=== PATIENT | male | born 1955 | race Two or more races ===

== ENCOUNTER → 2018-01-06 | Outpatient (CLI) | payer MEDICARE ==
[2018-01-06 14:22] LABS: Blood Urea Nitrogen 18 mg/dL (9-20)
== END | disposition home or self-care (01) ==
LOC: LABWHC1 13:47
PROVIDERS: ATTEND Psychiatry & Neurology Neurology
DX: R51 Headache (principal); R90.82 White matter disease, unspecified; H46.9 Unspecified optic neuritis; Z88.0 Allergy status to penicillin; Z88.5 Allergy status to narcotic agent
CPT/HCPCS: 36415; 82565; 84520

== ENCOUNTER → 2018-01-20 | Outpatient (CLI) | payer MEDICARE ==
--- NOTE | 2018-01-20 22:48 | MR ---
EXAMINATION TYPE: MR brain wo/w con DATE OF EXAM: 01/20/2018 COMPARISON: Prior MRI brain September 07, 2015 HISTORY: BAKER, White matter changes, optic neuritis TECHNIQUE: Multiplanar, multisequence images of the brain and brainstem is performed without and with IV contras t, utilizing 7.5 mL intravenous Gadavist gadolinium contrast is administered intravenously. Demyelin ating disease protocol with additional Sagittal Flair sequence is not performed. FINDINGS: T2 Lesions Present : Yes Approximate Number of Lesions: 50-70 Locations Identified : Scattered superficial, deep, and periventricular Size of Reference Lesion(s): 1. 0.8 x 0.8 cm on axial image 18 left frontal white matter felt stable. Enhancing Lesion(s) Present: No T1 Hypointense Lesion(s) Present: Yes Change from Prior: Increased Diffusion weighted images demonstrate no evidence of a recent infarct or other diffusion abnormality. There is no worrisome extra-axial fluid collection. The ventricular system and cisternal spaces ar e normal in size and appearance. The brain volume is age appropriate. Midline structures demonstrate normal morphology. The craniocervical junction appears within normal limits. Post contrast images demonstrate no abnormal enhancement. The dural venous sinuses appear pa tent. The visualized sinuses are clear and the globes are intact. Patchy increased fluid signal left mastoid air cells remains present likely product of retained secretions. IMPRESSION: Moderate to severe nonspecific white matter changes redemonstrated. Some increase in numb er of lesions are identified. No enhancing lesions are seen.
== END | disposition home or self-care (01) ==
LOC: RADMRIMAIN 20:37
PROVIDERS: ATTEND Physician Assistant
DX: R90.89 Other abnormal findings on diagnostic imaging of central nervous system (principal); G93.9 Disorder of brain, unspecified
CPT/HCPCS: 70553; A9581

== ENCOUNTER → 2018-05-25 | Outpatient (CLI) | payer MEDICARE, OTHER | LOC: LABWHC1 12:30 | PROVIDERS: ATTEND Nurse Practitioner Acute Care | DX: Z51.81 Encounter for therapeutic drug level monitoring (principal); E11.9 Type 2 diabetes mellitus without complications | CPT/HCPCS: 36415; 82565; 84520 ==

== ENCOUNTER 2021-07-14 20:19 | Inpatient (IN) | payer MEDICARE ==
[2021-07-14 20:50] LABS: Basophils % (A) 0 %; Eosinophils % (A) 0 %; HGB 14.8 gm/dL (13.0-17.5); Lymphocytes # (A) 1.4 k/uL (1.0-4.8); Lymphocytes % (A) 14 %; MCHC 32.9 g/dL (31.0-37.0); MCV 106.4 fL (80.0-100.0); Macrocytosis Moderate; Mean Platelet Volume 8.1; Monocytes # (A) 0.3 k/uL (0-1.0); Monocytes % (A) 4 %; Neutrophils # (A) 7.6 k/uL (1.3-7.7); Neutrophils % (A) 80 %; Platelet Count 270 k/uL (150-450); RBC 4.23 m/uL (4.30-5.90); RDW 13.1 % (11.5-15.5); WBC 9.5 k/uL (3.8-10.6)
[2021-07-14 20:57] LABS: Albumin 4.8 g/dL (3.5-5.0); Magnesium 2.3 mg/dL (1.6-2.3); Potassium 5.7 mmol/L (3.5-5.1); Total Protein 7.5 g/dL (6.3-8.2)
[2021-07-14 21:09] LABS: Partial Thromboplastin Time 22.2 sec (22.0-30.0); Prothrombin Time 11.1 sec (9.0-12.0)
[2021-07-14] MEDS ORDERED: SODIUM CHLORIDE 0.9% 1,000 ML IV STA (21:10)
--- NOTE | 2021-07-14 21:53 | XR ---
EXAMINATION TYPE: XR chest 2V DATE OF EXAM: 07/14/2021 8:58 PM COMPARISON:None TECHNIQUE: XR chest 2V Frontal and lateral views of the chest. CLINICAL INDICATION:Male, 65 years old with history of Chest Pain; FINDINGS: Lungs/Pleura: There is no evidence of pleural effusion, focal consolidation, or pneumothorax. Pulmonary vascularity: Unremarkable. Heart/mediastinum: Cardiomediastinal silhouette is unremarkable. Two lead cardiac conduction device o verlying the left hemithorax with lead tips projecting over the right ventricle and right atrium. Musculoskeletal: No acute osseous pathology. IMPRESSION: No acute cardiopulmonary disease/process.
[2021-07-14] MEDS ORDERED: INSULIN REGULAR 100 UNIT/ML VIAL (IV) IV ONE (23:22)
[2021-07-15 00:19] LABS: Glucose,Whole Blood 470 mg/dL (75-99)
--- NOTE | 2021-07-15 00:35 | ED ---
Chest Pain HPI - General Chief Complaint: Chest Pain Stated Complaint: Chest Pain Time Seen by Provider: 07/14/21 20:20 Source: patient, EMS, RN notes reviewed Mode of arrival: EMS Limitations: no limitations - History of Present Illness Initial Comments: 65-year-old male history diabetes history of pacemaker who states he's not had his diabetic medication for at least 6-8 weeks who is brought in by EMS today because of chest pain diaphoresis he was noted by paramedics have what appear to be atrial fibrillation with a rapid ventricular response with verbal other rhythms noted. He had chest pain. No fevers chills or sweats on arrival the patient stated he had no chest pain he does not feel well however. No cough no phlegm production no other symptoms reported MD Complaint: chest pain, other - Related Data Home Medications Medication Instructions Recorded Confirmed Atorvastatin [Lipitor] 40 mg PO DAILY 07/14/21 07/14/21 Diltiazem Cd [Cardizem CD] 180 mg PO DAILY 07/14/21 07/14/21 Docusate [Colace] 100 mg PO DAILY 07/14/21 07/14/21 Levothyroxine Sodium [Synthroid] 75 mcg PO DAILY 07/14/21 07/14/21 Losartan Potassium 100 mg PO HS 07/14/21 07/14/21 Nitroglycerin Sl Tabs [Nitrostat] 0.4 mg SUBLINGUAL Q5M PRN 07/14/21 07/14/21 QUEtiapine [SEROquel] 400 mg PO HS 07/14/21 07/14/21 Rivaroxaban [Xarelto] 20 mg PO DAILY 07/14/21 07/14/21 Venlafaxine HCl [Effexor] 100 mg PO DAILY 07/14/21 07/14/21 buPROPion HCL [Wellbutrin XL] 300 mg PO DAILY 07/14/21 07/14/21 buPROPion XL [Wellbutrin XL] 150 mg PO DAILY 07/14/21 07/14/21 carBAMazepine [TEGretol] 400 mg PO Q12H 07/14/21 07/14/21 clonazePAM [KlonoPIN] 1 mg PO TID 07/14/21 07/14/21 metFORMIN HCL [Glucophage] 1,000 mg PO BID 07/14/21 07/14/21 Allergies Allergy/AdvReac Type Severity Reaction Status Date / Time Penicillins Allergy Unknown Verified 07/14/21 22:18 Childhood Review of Systems ROS Statement: Those systems with pertinent positive or pertinent negative responses have been documented in the HPI. ROS Other: All systems not noted in ROS Statement are negative. EKG Findings - EKG Results: EKG: interpreted by KIRAN Past Medical History Past Medical History: Atrial Fibrillation, COPD, Diabetes Mellitus, Hyperlipidemia, Hypertension, Myocardial Infarction ([place]), Thyroid Disorder History of Any Multi-Drug Resistant Organisms: None Reported Past Psychological History: Anxiety, Bipolar, Depression Smoking Status: Vaper Past Alcohol Use History: None Reported Past Drug Use History: None Reported General Exam - General Exam Comments Initial Comments: This is a well-developed well-nourished awake alert oriented times 3 male Limitations: no limitations General appearance: alert, anxious Head exam: Present: atraumatic, normocephalic, normal inspection Eye exam: Present: normal appearance, PERRL, EOMI. Absent: scleral icterus, conjunctival injection, periorbital swelling ENT exam: Present: mucous membranes dry Neck exam: Present: normal inspection, full ROM, other (No stridor JVD or bruits). Absent: tenderness, meningismus, lymphadenopathy Respiratory exam: Present: normal lung sounds bilaterally, other (Pacemaker generator palpable left upper chest wall no evidence of erythema or tenderness palpation). Absent: respiratory distress, wheezes, rales, rhonchi, stridor Cardiovascular Exam: Present: regular rate, normal rhythm, normal heart sounds. Absent: systolic murmur, diastolic murmur, rubs, gallop, clicks GI/Abdominal exam: Present: soft, normal bowel sounds. Absent: distended, tenderness, guarding, rebound, rigid Extremities exam: Present: normal inspection, full ROM, normal capillary refill. Absent: tenderness, pedal edema, joint swelling, calf tenderness Back exam: Present: normal inspection Neurological exam: Present: alert, oriented X3, CN II-XII intact Psychiatric exam: Present: normal affect, normal mood Skin exam: Present: warm, dry, intact, normal color. Absent: rash Course Vital Signs 07/14/21 20:30 Temperature 97.8 F Pulse Rate 60 Respiratory 20 Rate Blood Pressure 166/108 O2 Sat by Pulse 100 Oximetry - Reevaluation(s) Reevaluation #1: 07/15/21 00:35 Patient evaluated on multiple occasions he is feeling improved was found have elevated blood sugar. He was sitting of hyponatremia. Evidence of clinical dehydration. Chest Pain MDM - MDM Imaging reviewed no acute findings. Patient does have evidence of DKA he has acetone positive also elevated troponin elevated creatinine and BUN also sodium 123. Patient will be admitted I did discuss case with him and his family. Acid discuss case with Dr. Mayer who did see the patient in emergency department discuss case with Dr. Alicea for ICU placement. Critical Care Time Critical Care Time: Yes Total Critical Care Time: 39 Critical Care Time: Critical care time including initial presentation with history physical labs x- rays multiple reevaluation patient response to therapy discuss with the patient family regarding findings discussed with the main physician discussion with the sweater operator. Initial orders documentation the above also initial conversation with paramedics upon arrival. Disposition Clinical Impression: Chest pain, Elevated troponin, Diabetic ketoacidosis, Hyponatremia syndrome, Dehydration Disposition: ADMITTED IP TO THIS HOSP Condition: Serious Referrals: Brenda Hewitt, AIDEN [Primary Care Provider] - 1-2 days
[2021-07-15] MEDS ORDERED: NITROGLYCERIN SL TABS 0.4 MG TAB SUBLINGUAL PRN (00:38)
[2021-07-15] MEDS ORDERED: HEPARIN SODIUM 1,000 UN/ML (10ML VL) IV ONE (00:38)
[2021-07-15] MEDS ORDERED: Magnesium Replacement Protocol 1 EACH MISC MISCELLANE PRN (00:43)
[2021-07-15] MEDS ORDERED: INSULIN REGULAR BOLUS (FROM DRIP BAG) IV ONE (00:43)
[2021-07-15] MEDS ORDERED: Potassium Replacement Protocol 1 EACH MISC MISCELLANE PRN (00:43)
[2021-07-15] MEDS ORDERED: HEPARIN SOD,PORK IN 0.45% NACL 25,000 UNIT in 0.45% NACL 1 250ML.BAG IV SCH (00:45)
[2021-07-15] MEDS ORDERED: INSULIN REGULAR 100 UNIT in SODIUM CHLORIDE 0.9% 100 ML IV SCH (00:45)
[2021-07-15 01:05] LABS: Calcium 8.8 mg/dL (8.4-10.2); Magnesium 2.3 mg/dL (1.6-2.3); Potassium 4.6 mmol/L (3.5-5.1)
[2021-07-15] MEDS: carBAMazepine 200 MG TAB PO SCH ×2 (01:32→12:04)
[2021-07-15 01:36] LABS: Glucose,Whole Blood 477 mg/dL (75-99)
[2021-07-15] MEDS: SODIUM CHLORIDE 0.9% 1,000 ML IV SCH ×3 (01:38→09:00)
--- NOTE | 2021-07-15 01:55 | P.HPIM ---
History of Present Illness H&P Date: 07/15/21 The patient is a 65-year-old male with a PMH of A. fib on Xarelto, status post pacemaker, hypertension, type II DM, hyperlipidemia who presented to the emergency room with complaints of chest pain, urinary frequency, and increased thirst. Patient reports that over the past 2-3 days, he has noticed persistent frequent urination and significantly increased thirst. He reports also feeling unwell during this time. He reports not being able to take his diabetes medications over the past 6-8 weeks due to inability to obtain an appointment with his physicians. He reports that earlier today in the evening, he suddenly developed a pressure-like substernal 10 out of 10 discomfort with radiation th roughout the chest, with no alleviating or exacerbating features. He reports associated shortness of breath and some palpitations. He immediately activated his life alert bracelet, and upon arrival, EMS noted that the patient was in A. fib with RVR. The patient reported that his pain eventually resolved after 30- 45 minutes. He denied fever, chills, cough, nausea, vomiting, abdominal pain, diarrhea. EKG the emergency room revealed a paced rhythm at 59 bpm with a right bundle branch block. Chest x-ray was unremarkable. Laboratory evaluation revealed a glucose of 794, and gap 24, sodium 123, potassium 5.7, chloride 88, CO2 11, BUN 48, creatinine 1.7, acetone positive, and troponin 0.089 and a proBNP 1590. Vital signs were reviewed. The case was discussed by the ED physician with the cube machine tender. Review of systems: Pertinent positives and negatives as discussed in HPI, a complete review of systems was performed and all other systems are negative. Physical examination: General: non toxic, no distress, appears older than stated age, overweight Derm: no unusual rashes/lesions no unusual ecchymoses, warm, dry Head: atraumatic, normocephalic, symmetric Eyes: EOMI, no lid lag, anicteric sclera, pupils equal round reactive to light ENT: Nose and ears atraumatic, no thrush, no pharyngeal erythema Neck: No thyromegaly, no cervical lymphadenopathy, trachea midline, supple Mouth: no lip lesion, mucus membranes moist Cardiovascular: S1S2 reg, no murmur, positive posterior tibial pulse bilateral, no edema, capillary refill less than 2 seconds Lungs: CTA bilateral, no rhonchi, no rales , no accessory muscle use Abdominal: soft, nontender to palpation, no guarding, no appreciable organomegaly, normal bowel sounds Ext: no gross muscle atrophy, muscle strength 5 out of 5 in all 4 extremities grossly, no contractures, Neuro: CN II-XI grossly intact, light touch intact all 4 extremities, finger to nose within normal limits, Psych: Alert, oriented, appropriate affect Assessment/plan DKA in type II diabetic -Continue with insulin infusion -Monitor electrolytes q2-4h -IV fluids -Hold oral hypoglycemics -Cardiac monitoring Acute kidney injury, likely secondary to dehydration in setting of DKA -Continue with IV fluids -Monitor BMP NSTEMI -Patient taking Xarelto at home -Cardiac monitoring -C/w Aspirin -Cardiology consult Chronic conditions: Hypertension, hyperlipidemia, A. fib -Continue with home meds DVT prophylaxis -Xarelto The patient is admitted with an anticipated greater than 2 midnight stay for evaluation of DKA CODE STATUS: Full Code Discussed with: Patient Anticipated discharge date: 2-[address]: Home Past Medical History Past Medical History: Atrial Fibrillation, COPD, Diabetes Mellitus, Hyperlipidemia, Hypertension, Myocardial Infarction ([place]), Thyroid Disorder History of Any Multi-Drug Resistant Organisms: None Reported Past Psychological History: Anxiety, Bipolar, Depression Smoking Status: Vaper Past Alcohol Use History: None Reported Past Drug Use History: None Reported Medications and Allergies Home Medications Medication Instructions Recorded Confirmed Type Atorvastatin [Lipitor] 40 mg PO DAILY 07/14/21 07/14/21 History Diltiazem Cd [Cardizem CD] 180 mg PO DAILY 07/14/21 07/14/21 History Docusate [Colace] 100 mg PO DAILY 07/14/21 07/14/21 History Levothyroxine Sodium [Synthroid] 75 mcg PO DAILY 07/14/21 07/14/21 History Losartan Potassium 100 mg PO HS 07/14/21 07/14/21 History Nitroglycerin Sl Tabs [Nitrostat] 0.4 mg SUBLINGUAL Q5M PRN 07/14/21 07/14/21 History QUEtiapine [SEROquel] 400 mg PO HS 07/14/21 07/14/21 History Rivaroxaban [Xarelto] 20 mg PO DAILY 07/14/21 07/14/21 History Venlafaxine HCl [Effexor] 100 mg PO DAILY 07/14/21 07/14/21 History buPROPion HCL [Wellbutrin XL] 300 mg PO DAILY 07/14/21 07/14/21 History buPROPion XL [Wellbutrin XL] 150 mg PO DAILY 07/14/21 07/14/21 History carBAMazepine [TEGretol] 400 mg PO Q12H 07/14/21 07/14/21 History clonazePAM [KlonoPIN] 1 mg PO TID 07/14/21 07/14/21 History metFORMIN HCL [Glucophage] 1,000 mg PO BID 07/14/21 07/14/21 History Allergies Allergy/AdvReac Type Severity Reaction Status Date / Time Penicillins Allergy Unknown Verified 07/14/21 22:18 Childhood Physical Exam Vitals: Vital Signs Temp Pulse Resp BP Pulse Ox 07/14/21 23:00 60 16 157/99 100 07/14/21 22:00 60 16 151/110 100 07/14/21 21:00 60 16 156/104 100 07/14/21 20:30 97.8 F 60 20 166/108 100 Intake and Output 07/14/21 07/14/21 07/15/21 14:59 22:59 06:59 Other: Weight 83.915 kg Results CBC & Chem 7: 07/14/21 20:34 07/15/21 00:18 Labs: Abnormal Lab Results - Last 24 Hours (Table) 07/14/21 07/14/21 07/14/21 Range/Units 20:34 20:34 20:34 RBC 4.23 L (4.30-5.90) m/uL MCV 106.4 H (80.0-100.0) fL Sodium 123 L (137-145) mmol/L Potassium 5.7 H (3.5-5.1) mmol/L Chloride 88 L (98-107) mmol/L Carbon Dioxide 11 L (22-30) mmol/L BUN 48 H (9-20) mg/dL Creatinine 1.77 H (0.66-1.25) mg/dL Glucose 794 H* (74-99) mg/dL POC Glucose (mg/dL) (75-99) mg/dL AST 81 H (17-59) U/L ALT 155 H (4-49) U/L Alkaline Phosphatase 162 H (38-126) U/L Troponin I 0.089 H* (0.000-0.034) ng/mL 07/15/21 07/15/21 Range/Units 00:16 00:18 RBC (4.30-5.90) m/uL MCV (80.0-100.0) fL Sodium 129 L (137-145) mmol/L Potassium (3.5-5.1) mmol/L Chloride 93 L (98-107) mmol/L Carbon Dioxide 19 L (22-30) mmol/L BUN 49 H (9-20) mg/dL Creatinine 1.58 H (0.66-1.25) mg/dL Glucose 538 H* (74-99) mg/dL POC Glucose (mg/dL) 470 H (75-99) mg/dL AST (17-59) U/L ALT (4-49) U/L Alkaline Phosphatase (38-126) U/L Troponin I (0.000-0.034) ng/mL
[2021-07-15 02:40] LABS: Glucose,Whole Blood 380 mg/dL (75-99)
[2021-07-15 02:42] LABS: VBG PH 7.27 (7.31-7.41)
[2021-07-15 03:50] LABS: Glucose,Whole Blood 283 mg/dL (75-99)
[2021-07-15 04:04] LABS: Glucose,Whole Blood 292 mg/dL (75-99)
[2021-07-15] MEDS: D5-0.45% NACL WITH KCL 20MEQ/L 1,000 ML IV SCH ×3 (05:14→13:27)
[2021-07-15 05:15] LABS: Glucose,Whole Blood 224 mg/dL (75-99)
[2021-07-15 06:05] LABS: Glucose,Whole Blood 184 mg/dL (75-99)
[2021-07-15 06:07] LABS: Potassium 4.1 mmol/L (3.5-5.1)
[2021-07-15] MEDS: LEVOTHYROXINE 75 MCG TAB PO SCH (06:40)
[2021-07-15 07:20] LABS: Glucose,Whole Blood 153 mg/dL (75-99)
--- NOTE | 2021-07-15 08:07 | P.CNPUL ---
History of Present Illness Consult date: 07/15/21 Reason for consult: chest pain History of present illness: 65-year-old male patient presented to the emergency department yesterday with chest pain, dehydration and hyperglycemia. The patient was found to be in DKA. The patient is known to have diabetes mellitus in his been off metformin for the past 6 weeks. He is known to have COPD, H a fibrillation, and he has a permanent pacemaker in place along with hypertension and type 2 diabetes m ellitus and hyperlipidemia and hypothyroidism. His been having increased chest pain, urinary frequency, polyuria, polydipsia. He presented to the ED, initial workup showed hyperglycemia with a sugar of 794, the sedation I gap was 24, sodium was at 123, potassium was at 5.7, serum bicarb was 11, BUN was 48 with a creatinine of 1.7. Acetone was positive in the sputum. Troponin initially was 0.08 and came at 0.09 and is down to 0.07. His cardiac rhythm was paced. EKG showed a paced rhythm. Overnight, the patient was given IV fluids and received IV fluids and following that he was switched to D5 half-normal saline today to 150 mL an hour. He was also started on insulin drip and currently insulin drip is running at 9 units an hour. Blood sugars under better control for now. Most recent electrolytes are showing a sodium of 128, serum bicarb of 20, BUN of 47 with a creatinine of 1.4. Most recent blood sugar is down to 241. Normal coagulation profile. With that was at 9.4 with a hemoglobin of 14.8. Chest x- ray showed no acute abnormalities. He is currently free of any chest pain. Cardiology will be evaluating this patient. He is hemodynamically stable on no pressors. He is known to take Xarelto on outpatient basis for long-term anticoagulation. Furthermore, the patient is fully vaccinated for COVID 19. He states that he was infected with COVID 19 following his vaccination and is not exactly sure of the date of the reinfection. Patient has chronic back pain. The patient has a pain pump with morphine. The patient quit smoking recently approximately 2 months ago. Review of Systems Constitutional: Reports fatigue, Reports weakness Eyes: denies as per HPI, denies blurred vision, denies bulging eye, denies decreased vision, denies diplopia, denies discharge, denies dry eye, denies irritation, denies itching, denies pain, denies photophobia, denies loss of peripheral vision, denies loss of vision, denies tunnel vision/blind spots Ears: deny: decreased hearing, ear discharge, earache, tinnitus Ears, nose, mouth and throat: Reports as per HPI Breasts: absent: as per HPI, gynecomastia Cardiovascular: Reports chest pain, Reports dyspnea on exertion Respiratory: Reports as per HPI Gastrointestinal: Reports as per HPI Genitourinary: Reports as per HPI Musculoskeletal: Reports as per HPI Musculoskeletal: absent: ankle pain, ankle stiffness, ankle swelling, as per HPI , elbow pain, elbow stiffness, elbow swelling, foot pain, foot stiffness, foot swelling, hand pain, hand stiffness, hand swelling, hip pain, hip stiffness, hip swelling, knee pain, knee stiffness, knee swelling, shoulder pain, shoulder stiffness, shoulder swelling, wrist pain, wrist stiffness, wrist swelling Integumentary: Reports as per HPI Neurological: Reports as per HPI Psychiatric: Reports as per HPI Endocrine: Reports high blood sugars, Reports polydipsia, Reports polyuria Hematologic/Lymphatic: Reports as per HPI Allergic/Immunologic: Reports as per HPI Past Medical History Past Medical History: Atrial Fibrillation, Coronary Artery Disease (CAD), COPD, Diabetes Mellitus, Hyperlipidemia, Hypertension, Myocardial Infarction (PR), Thyroid Disorder Additional Past Medical History / Comment(s): PR 2019, hypothyroid Last Myocardial Infarction Date:: 2018 History of Any Multi-Drug Resistant Organisms: None Reported Past Surgical History: No Surgical Hx Reported Additional Past Surgical History / Comment(s): pacemaker insertion Past Anesthesia/Blood Transfusion Reactions: No Reported Reaction Past Psychological History: Anxiety, Bipolar, Depression Smoking Status: Former smoker, Vaper Past Alcohol Use History: None Reported Past Drug Use History: None Reported Medications and Allergies Home Medications Medication Instructions Recorded Confirmed Type Atorvastatin [Lipitor] 40 mg PO DAILY 07/14/21 07/14/21 History Diltiazem Cd [Cardizem CD] 180 mg PO DAILY 07/14/21 07/14/21 History Docusate [Colace] 100 mg PO DAILY 07/14/21 07/14/21 History Levothyroxine Sodium [Synthroid] 75 mcg PO DAILY 07/14/21 07/14/21 History Losartan Potassium 100 mg PO HS 07/14/21 07/14/21 History Nitroglycerin Sl Tabs [Nitrostat] 0.4 mg SUBLINGUAL Q5M PRN 07/14/21 07/14/21 History QUEtiapine [SEROquel] 400 mg PO HS 07/14/21 07/14/21 History Rivaroxaban [Xarelto] 20 mg PO DAILY 07/14/21 07/14/21 History Venlafaxine HCl [Effexor] 100 mg PO DAILY 07/14/21 07/14/21 History buPROPion HCL [Wellbutrin XL] 300 mg PO DAILY 07/14/21 07/14/21 History buPROPion XL [Wellbutrin XL] 150 mg PO DAILY 07/14/21 07/14/21 History carBAMazepine [TEGretol] 400 mg PO Q12H 07/14/21 07/14/21 History clonazePAM [KlonoPIN] 1 mg PO TID 07/14/21 07/14/21 History metFORMIN HCL [Glucophage] 1,000 mg PO BID 07/14/21 07/14/21 History Allergies Allergy/AdvReac Type Severity Reaction Status Date / Time Penicillins Allergy Unknown Verified 07/14/21 22:18 Childhood Physical Exam Vitals: Vital Signs Temp Pulse Pulse Resp BP BP Pulse Ox 07/15/21 07:00 60 154/95 98 07/15/21 06:00 60 149/81 98 07/15/21 05:00 60 140/87 97 07/15/21 04:00 98.7 F 60 147/104 95 07/15/21 03:00 98.3 F 64 22 147/93 99 07/15/21 02:37 62 20 147/90 97 07/14/21 23:00 60 16 157/99 100 07/14/21 22:00 60 16 151/110 100 07/14/21 21:00 60 16 156/104 100 07/14/21 20:30 97.8 F 60 20 166/108 100 Intake and Output 07/14/21 07/15/21 07/15/21 22:59 06:59 14:59 Intake Total 518.08 150 Output Total 0 200 Balance 518.08 -50 Intake: IV 500 150 D5-0.45% NaCl with KCl 300 150 20Meq/l 1,000 ml @ 150 mls/hr IV .[id number] [facility] Rx# :[id number] Sodium Chloride 0.9% 1, 200 000 ml @ 200 mls/hr IV . Q5H [facility] Rx#:[id number] Intake, IV Titration 18.08 Amount Insulin Regular 100 unit 18.08 In Sodium Chloride 0.9% 100 ml @ 0.1 UNITS/KG/HR 8.475 mls/hr IV .[id number] [facility] Rx#:[id number] Output: Urine 0 200 Other: Voiding Method Urinal # Voids 1 Weight 83.915 kg 83.915 kg General: non toxic, no distress, appears older than stated age, overweight Derm: no unusual rashes/lesions no unusual ecchymoses, warm, dry Head: atraumatic, normocephalic, symmetric Eyes: EOMI, no lid lag, anicteric sclera, pupils equal round reactive to light ENT: Nose and ears atraumatic, no thrush, no pharyngeal erythema Neck: No thyromegaly, no cervical lymphadenopathy, trachea midline, supple Mouth: no lip lesion, mucus membranes moist Cardiovascular: S1S2 reg, no murmur, positive posterior tibial pulse bilateral, no edema, capillary refill less than 2 seconds Lungs: CTA bilateral, no rhonchi, no rales , no accessory muscle use Abdominal: soft, nontender to palpation, no guarding, no appreciable organomegaly, normal bowel sounds Ext: no gross muscle atrophy, muscle strength 5 out of 5 in all 4 extremities grossly, no contractures, Neuro: CN II-XI grossly intact, light touch intact all 4 extremities, finger to nose within normal limits, Psych: Alert, oriented, appropriate affect Results - Laboratory Findings CBC and BMP: 07/14/21 20:34 07/15/21 04:40 PT/INR, D-dimer PT 11.1 sec (9.0-12.0) 07/14/21 20:34 INR 1.0 (<1.2) 07/14/21 20:34 Abnormal lab findings: Abnormal Labs 07/14/21 07/14/21 07/14/21 20:34 20:34 20:34 RBC 4.23 L MCV 106.4 H VBG pH VBG pCO2 VBG HCO3 Sodium 123 L Potassium 5.7 H Chloride 88 L Carbon Dioxide 11 L BUN 48 H Creatinine 1.77 H Glucose 794 H* POC Glucose (mg/dL) AST 81 H ALT 155 H Alkaline Phosphatase 162 H Troponin I 0.089 H* 07/15/21 07/15/21 07/15/21 00:16 00:18 01:34 RBC MCV VBG pH VBG pCO2 VBG HCO3 Sodium 129 L Potassium Chloride 93 L Carbon Dioxide 19 L BUN 49 H Creatinine 1.58 H Glucose 538 H* POC Glucose (mg/dL) 470 H 477 H AST ALT Alkaline Phosphatase Troponin I 07/15/21 07/15/21 07/15/21 01:45 01:45 02:39 RBC MCV VBG pH 7.27 L VBG pCO2 52 H VBG HCO3 23 L Sodium Potassium Chloride Carbon Dioxide BUN Creatinine Glucose POC Glucose (mg/dL) 380 H AST ALT Alkaline Phosphatase Troponin I 0.090 H* 07/15/21 07/15/21 07/15/21 03:48 04:03 04:40 RBC MCV VBG pH VBG pCO2 VBG HCO3 Sodium Potassium Chloride Carbon Dioxide BUN Creatinine Glucose POC Glucose (mg/dL) 283 H 292 H AST ALT Alkaline Phosphatase Troponin I 0.078 H* 07/15/21 07/15/21 07/15/21 04:40 05:12 06:03 RBC MCV VBG pH VBG pCO2 VBG HCO3 Sodium 128 L Potassium Chloride 97 L Carbon Dioxide 20 L BUN 47 H Creatinine 1.40 H Glucose 241 H POC Glucose (mg/dL) 224 H 184 H AST ALT Alkaline Phosphatase Troponin I 07/15/21 07:18 RBC MCV VBG pH VBG pCO2 VBG HCO3 Sodium Potassium Chloride Carbon Dioxide BUN Creatinine Glucose POC Glucose (mg/dL) 153 H AST ALT Alkaline Phosphatase Troponin I - Diagnostic Findings Chest x-ray: image reviewed Assessment and Plan Plan: 1 acute DKA in the patient with known history of type 2 diabetes mellitus maintained on metformin outpatient basis. Patient presented to us with anion g ap metabolic acidosis with positive acetones typical of DKA. His blood sugars were elevated and the patient also was dehydrated and had an acute kidney injury. 2 acute kidney injury secondary to above 3 acute non-ST segment elevation myocardial infarction 4 Coronary artery disease 5 history of chronic atrial fibrillation current rhythm is paced 6 hypertension 7 hyperlipidemia 8 hypothyroidism 9 chronic anxiety/depression 10 previous history of smoking 11 Chronic back pain and the patient has a pain pump (morphine) 12 to the hyponatremia, improving. Plan Continue DKA management. Awaiting most recent electrolytes and following that the patient will be switched to long-acting insulin and my choice will be Levemir insulin at 0.2 units per KG along with a sliding scale Coverage. Metformin will be kept on hold for now. Monitor the blood sugar every 1 hour. Monitor electrolytes Continue D5 half-normal saline today to 150 mL an hour May be able to provide a diet at a later stage once the anion gap closes and the patient is able to switch to long-acting insulin Chest x-ray is normal Hemodynamically stable Restart home medication including Xarelto on aspirin, Lipitor, Seroquel, BuSpar Consult with cardiology regarding the troponin leak and non-STEMI Obtain echocardiogram Check a hemoglobin A1c We'll keep the patient ICU for further medication adjustment and will continue to follow Time with Patient: Greater than 30
[2021-07-15] MEDS: DOCUSATE 100 MG CAP PO SCH (08:12)
[2021-07-15 08:24] LABS: Phosphorus 4.4 mg/dL (2.5-4.5); Potassium 4.1 mmol/L (3.5-5.1)
[2021-07-15] MEDS ORDERED: VENLAFAXINE HCL 50 MG TAB PO SCH (09:00)
[2021-07-15] MEDS ORDERED: metFORMIN 500 MG TAB PO SCH (09:00)
[2021-07-15] MEDS: ATORVASTATIN 40 MG TAB PO SCH (09:04)
[2021-07-15] MEDS: ASPIRIN 81 MG PO SCH (09:04)
[2021-07-15 09:05] LABS: Glucose,Whole Blood 91 mg/dL (75-99)
[2021-07-15] MEDS: buPROPion XL 150 MG TAB.ER.24H PO SCH (09:21)
[2021-07-15] MEDS: DILTIAZEM CD 180 MG CAP.ER.24H PO SCH (09:21)
[2021-07-15] MEDS: buPROPion XL 300 MG TAB.ER.24H PO SCH (09:21)
[2021-07-15] MEDS: RIVAROXABAN 20 MG TAB PO SCH (09:21)
--- NOTE | 2021-07-15 09:58 | CONS ---
CONSULTATION This is a 65-year-old gentleman with type 2 diabetes who was taking metformin. He also has hypertension, hyperlipidemia and paroxysmal atrial fibrillation, for which he takes Xarelto. He also has sick sinus syndrome and had a permanent pacemaker placed a couple of years ago (details unavailable), and this was in [facility] on [address]. He is here after not taking his medications, and basically he tells me that his primary care physician/nurse practitioner did not give him medications. However, it is not sure how compliant he is. He did not take any metformin for 6 to 8 days, came in because of diaphoresis, shortness of breath and also complained of chest discomfort. He was found to be in atrial fibrillation initially and later on he went back into a sinus rhythm with some back-up pacing. However, his troponin went up and the troponin numbers are very flat and do not represent active myocardial injury. They are 0.08, 0.07 and 0.09. He is resting comfortably. He is out of DKA. Blood sugars are in the 250 range. His CO2 content has come up to 26. He feels much better. He has no chest pain or shortness of breath at the time of my evaluation. His renal function is abnormal, but improved to 1.41. PAST MEDICAL HISTORY: 1. Type 2 diabetes. 2. Hypertension. 3. Hypercholesterolemia. 4. History of paroxysmal atrial fibrillation. 5. Sick sinus syndrome with a pacemaker. EKG revealed a sinus mechanism with a right bundle branch block pattern and rhythm strips suggest some atrial pacing as well. MEDICATIONS: Medications at home were Xarelto, losartan, levothyroxine, atorvastatin, diltiazem, metformin, but he has not been taking his metformin for a while. PHYSICAL EXAMINATION: On examination, blood pressure is 140/70, pulse rate is 60. HEENT unremarkable. Fundus was not examined by me. Neck is supple. I cannot appreciate JVD. There is no carotid bruit. Heart exam reveals S1, S2 with a short systolic murmur. Lungs reveal decent air entry. Abdomen is soft. Lower extremities reveal diminished pulses. Central nervous system is normal. IMPRESSION: 1. Troponin profile does not suggest acute myocardial injury. 2. Diabetic ketoacidosis, status post IV insulin drip and hydration; has improved. 3. History of paroxysmal atrial fibrillation, on Xarelto, which we will continue. 4. History of sick sinus syndrome with underlying right bundle with a pacemaker; appears to be functioning well based on rhythm strip review. 5. Hypertension. 6. Hypercholesterolemia. RECOMMENDATIONS: I am suggesting we will get an echo tomorrow. Decrease the aspirin from 325 to 81 mg daily and continue current treatment measures. We will do an echo in the morning. Thank you very much for the consult. ELKE / ISATU: [id number] /
[2021-07-15] MEDS ORDERED: INSULIN DETEMIR (LEVEMIR) 100 UNIT/ML SYR SQ SCH (10:15)
[2021-07-15] MEDS: clonazePAM 1 MG TAB PO SCH ×3 (11:39→22:57)
[2021-07-15 11:44] LABS: Glucose,Whole Blood 257 mg/dL (75-99)
[2021-07-15] MEDS: INSULIN ASPART (NovoLOG) 100 UNIT/ML VIAL SQ SCH ×4 (11:46→21:27)
--- NOTE | 2021-07-15 12:21 | P.PN ---
Progress Note - Text Progress Note Date: 07/15/21 Patient is a 65-year-old male with a past medical history of diabetes, atrial fibrillation on Xarelto status post pacemaker, hypertension, hyperlipidemia who presented with chest pain, urinary frequency and increased thirst. Patient states that he hasn't taken his metformin in weeks because he was in the process of seeing his new PCP and the PCP would not refill his medications until he was seen in the office. Patient was also not able to see the PCP immediately as he had to wait a certain amount of time after having COVID 19. In the ED patient was found to be in DKA. He was admitted to the ICU and started on DKA protocol. This morning patient's anion gap is closed and he has been transitioned to subcu insulin. Patient has also been tolerating his diet. He denies any chest pain. Patient's hemoglobin A1c is pending. Cardiology eval is pending. Anticipated patient will be ready for discharge in the next 24 hours. Depending on hemoglobin A1c level may need to discharge him on insulin. General examination - Alert and Oriented 3 in NAD Heart - + S1S2 no murmurs Lungs - Clear to auscultation Abdomen soft NT ND +ve BS Extremities - No edema BUCKLE SEWER - Moving all 4 extremities spontaneously Psych - Calm and cooperative
[2021-07-15] MEDS ORDERED: INSULIN ASPART (NovoLOG) 100 UNIT/ML VIAL SQ SCH (12:30)
[2021-07-15 16:00] LABS: Calcium 8.5 mg/dL (8.4-10.2); Phosphorus 3.9 mg/dL (2.5-4.5); Potassium 4.6 mmol/L (3.5-5.1)
[2021-07-15] MEDS ORDERED: HYDROmorphone 0.5 MG/0.5 ML SYRINGE IVP STA (16:24)
[2021-07-15] MEDS ORDERED: HYDROmorphone 1 MG/ML 1 ML SYRINGE IVP STA (16:31)
[2021-07-15] MEDS: NITROGLYCERIN OINT 1 INCH/GM PACKET TOPICAL SCH ×2 (16:33→23:43)
[2021-07-15] MEDS: VENLAFAXINE HCL 50 MG TAB PO SCH ×2 (17:39→22:57)
[2021-07-15 17:41] LABS: Glucose,Whole Blood 350 mg/dL (75-99)
[2021-07-15 21:23] LABS: Glucose,Whole Blood 360 mg/dL (75-99)
[2021-07-15] MEDS: INSULIN DETEMIR (LEVEMIR) 100 UNIT/ML SYR SQ SCH (21:27)
[2021-07-15] MEDS: LOSARTAN 50 MG TAB PO SCH (22:56)
[2021-07-15] MEDS: QUEtiapine 400 MG TAB PO SCH (22:58)
[2021-07-16] MEDS: carBAMazepine 200 MG TAB PO SCH ×3 (04:52→23:25)
[2021-07-16 05:07] LABS: Glucose,Whole Blood 299 mg/dL (75-99)
[2021-07-16] MEDS: NITROGLYCERIN OINT 1 INCH/GM PACKET TOPICAL SCH ×4 (05:54→23:25)
[2021-07-16] MEDS: LEVOTHYROXINE 75 MCG TAB PO SCH (05:54)
[2021-07-16 06:56] LABS: Glucose,Whole Blood 241 mg/dL (75-99)
[2021-07-16] MEDS: INSULIN ASPART (NovoLOG) 100 UNIT/ML VIAL SQ SCH ×7 (06:58→21:03)
[2021-07-16 07:18] LABS: Basophils % (A) 0 %; Eosinophils # (A) 0.2 k/uL (0-0.7); Eosinophils % (A) 3 %; HCT 40.8 % (39.0-53.0); HGB 13.6 gm/dL (13.0-17.5); Lymphocytes # (A) 2.3 k/uL (1.0-4.8); Lymphocytes % (A) 31 %; MCH 34.6 pg (25.0-35.0); MCHC 33.4 g/dL (31.0-37.0); MCV 103.7 fL (80.0-100.0); Macrocytosis Slight; Mean Platelet Volume 7.8; Monocytes # (A) 0.4 k/uL (0-1.0); Monocytes % (A) 5 %; Neutrophils # (A) 4.3 k/uL (1.3-7.7); Neutrophils % (A) 59 %; Platelet Count 211 k/uL (150-450); RBC 3.93 m/uL (4.30-5.90); RDW 13.3 % (11.5-15.5); WBC 7.3 k/uL (3.8-10.6)
[2021-07-16 07:38] LABS: Calcium 8.7 mg/dL (8.4-10.2)
[2021-07-16] MEDS: ATORVASTATIN 40 MG TAB PO SCH (08:14)
[2021-07-16] MEDS: DOCUSATE 100 MG CAP PO SCH (08:14)
[2021-07-16] MEDS: clonazePAM 1 MG TAB PO SCH ×3 (08:14→21:03)
[2021-07-16] MEDS: INSULIN DETEMIR (LEVEMIR) 100 UNIT/ML SYR SQ SCH ×2 (08:14→21:03)
[2021-07-16] MEDS: buPROPion XL 300 MG TAB.ER.24H PO SCH (08:15)
[2021-07-16] MEDS: RIVAROXABAN 20 MG TAB PO SCH (08:15)
[2021-07-16] MEDS: DILTIAZEM CD 180 MG CAP.ER.24H PO SCH (08:15)
[2021-07-16] MEDS: buPROPion XL 150 MG TAB.ER.24H PO SCH (08:15)
[2021-07-16] MEDS: VENLAFAXINE HCL 50 MG TAB PO SCH ×3 (08:16→21:04)
[2021-07-16] MEDS: ASPIRIN 81 MG PO SCH (08:21)
[2021-07-16] MEDS ORDERED: ASPIRIN 325 MG TAB PO SCH (09:00)
--- NOTE | 2021-07-16 09:56 | ECHOF ---
Referral Reason:assess left ventricular function MEASUREMENTS -------- HEIGHT: 177.8 cm WEIGHT: 83.9 kg BP: 117/65 RVIDd: 3.8 cm (< 3.3) IVSd: 1.4 cm (0.6 - 1.1) LVIDd: 4.0 cm (3.9 - 5.3) LVPWd: 1.2 cm (0.6 - 1.1) IVSs: 1.6 cm LVIDs: 2.5 cm LVPWs: 1.7 cm LAESV Index (A-L): 33.57 ml/m FINDINGS -------- Sinus rhythm. This was a technically difficult study with suboptimal views. The left ventricular size is normal. There is moderate concentric left ventricular hypertrophy. O verall left ventricular systolic function is normal with, an EF between 55 - 60 %. The right ventricle is mild to moderately enlarged. LA is midly dilated 29-33ml/m2. The right atrium was not well visualized. 5.0mg of Lumason was utilized for enhancement of images Interatrial and interventricular septum intact. The aortic valve was not well visualized. There is no evidence of aortic regurgitation. There is no evidence of aortic stenosis. The mitral valve was not well visualized. There is trace mitral regurgitation. The tricuspid valve was not well visualized. The pulmonic valve was not well visualized. The aortic root size is normal. IVC Not well visulized. There is no pericardial effusion. CONCLUSIONS -------- 1. The left ventricular size is normal. 2. There is moderate concentric left ventricular hypertrophy. 3. Overall left ventricular systolic function is normal with, an EF between 55 - 60 %. 4. The right ventricle is mild to moderately enlarged. 5. LA is midly dilated 29-33ml/m2. 6. There is trace mitral regurgitation. [employer]: Lis Kramer, [facility]
[2021-07-16 10:10] LABS: LDL Cholesterol,Calculated 77.6 mg/dL (0.0-131.0)
[2021-07-16 10:19] VITALS: BMI 26.1
[2021-07-16 11:25] LABS: Glucose,Whole Blood 343 mg/dL (75-99)
[2021-07-16] MEDS: D5-0.45% NACL WITH KCL 20MEQ/L 1,000 ML IV SCH ×2 (11:29)
--- NOTE | 2021-07-16 12:32 | P.PN ---
Subjective Progress Note Date: 07/16/21 65-year-old male patient presented to the emergency department yesterday with chest pain, dehydration and hyperglycemia. The patient was found to be in DKA. The patient is known to have diabetes mellitus in his been off metformin for the past 6 weeks. He is known to have COPD, H a fibrillation, and he has a permanent pacemaker in place along with hypertension and type 2 diabetes mellitus and hyperlipidemia and hypothyroidism. His been having increased chest pain, urinary frequency, polyuria, polydipsia. He presented to the ED, initial workup showed hyperglycemia with a sugar of 794, the sedation I gap was 24, sodium was at 123, potassium was at 5.7, serum bicarb was 11, BUN was 48 with a creatinine of 1.7. Acetone was positive in the sputum. Troponin initially was 0.08 and came at 0.09 and is down to 0.07. His cardiac rhythm was paced. EKG showed a paced rhythm. Overnight, the patient was given IV fluids and received IV fluids and following that he was switched to D5 half-normal saline today to 150 mL an hour. He was also started on insulin drip and currently insulin drip is running at 9 units an hour. Blood sugars under better control for now. Most recent electrolytes are showing a sodium of 128, serum bicarb of 20, BUN of 47 with a creatinine of 1.4. Most recent blood sugar is down to 241. Normal coagulation profile. With that was at 9.4 with a hemoglobin of 14.8. Chest x- ray showed no acute abnormalities. He is currently free of any chest pain. Cardiology will be evaluating this patient. He is hemodynamically stable on no pressors. He is known to take Xarelto on outpatient basis for long-term anticoagulation. Furthermore, the patient is fully vaccinated for COVID 19. He states that he was infected with COVID 19 following his vaccination and is not e xactly sure of the date of the reinfection. Patient has chronic back pain. The patient has a pain pump with morphine. The patient quit smoking recently approximately 2 months ago. 07/16/2021, seeing the patient for a follow-up. The patient is doing well. The patient is awake and alert. The patient is tolerating his diet. He was started on long-acting insulin as the patient's hemoglobin A1c was above 11. Anion gap is closed and the patient's DKA has recovered. The patient continues to have some patient hyperglycemia. The D5 half-normal infusion was discontinued today. No significant cough or sputum production. He was having on and off chest pain yesterday and this morning history of any chest pain. He does not have a local rod filler and his rod filler out of [facility]. No nausea. No vomiting. No diarrhea. No abdominal pain. The white cell count at 7.3 with a hemoglobin of 13.6, BUN is at 33 with a creatinine of 1.1, serum bicarbonate 22, triglycerides 339 and LDL cholesterol is at 77. For now, the patient on Levemir insulin 16 units twice a day and NovoLog 10 units with meals and this lasted coverage. Outpatient medications were resumed. His cardiac rhythm remains paced and the patient is on long-term and to coagulation with Xarelto. Psych iatric medications were all resumed. Echo was completed and showed an ejection fraction of 55-60%. No valvular abnormalities noted. Objective - Vital Signs Vital signs: Vital Signs Temp 97.6 F 07/16/21 04:00 Pulse 60 07/16/21 12:00 Resp 17 07/16/21 12:00 BP 108/71 07/16/21 12:00 Pulse Ox 96 07/16/21 12:00 Intake & Output 07/15/21 07/16/21 07/16/21 18:59 06:59 18:59 Intake Total 1650.133 850 250 Output Total 1150 650 750 Balance 500.133 200 -500 Weight 82.5 kg 82.5 kg Intake: IV 1350 850 50 D5-0.45% NaCl with KCl 1350 850 50 20Meq/l 1,000 ml @ 100 mls/hr IV .Q10H [facility] Rx#: [id number] Intake, IV Titration 50.133 Amount Insulin Regular 100 unit 50.133 In Sodium Chloride 0.9% 100 ml @ 0.1 UNITS/KG/HR 8.475 mls/hr IV .[id number] [facility] Rx#:[id number] Oral 250 200 Output: Urine 1150 650 750 Other: Voiding Method Urinal Urinal Urinal # Voids 1 1 - Exam General: non toxic, no distress, appears older than stated age, overweight Derm: no unusual rashes/lesions no unusual ecchymoses, warm, dry Head: atraumatic, normocephalic, symmetric Eyes: EOMI, no lid lag, anicteric sclera, pupils equal round reactive to light ENT: Nose and ears atraumatic, no thrush, no pharyngeal erythema Neck: No thyromegaly, no cervical lymphadenopathy, trachea midline, supple Mouth: no lip lesion, mucus membranes moist Cardiovascular: S1S2 reg, no murmur, positive posterior tibial pulse bilateral, no edema, capillary refill less than 2 seconds Lungs: CTA bilateral, no rhonchi, no rales , no accessory muscle use Abdominal: soft, nontender to palpation, no guarding, no appreciable organomegaly, normal bowel sounds Ext: no gross muscle atrophy, muscle strength 5 out of 5 in all 4 extremities grossly, no contractures, Neuro: CN II-XI grossly intact, light touch intact all 4 extremities, finger to nose within normal limits, Psych: Alert, oriented, appropriate affect - Labs CBC & Chem 7: 07/16/21 06:18 07/16/21 06:18 Labs: Abnormal Lab Results - Last 24 Hours (Table) 07/14/21 07/15/21 07/15/21 Range/Units 20:34 15:24 16:42 RBC (4.30-5.90) m/uL MCV (80.0-100.0) fL Sodium 130 L (137-145) mmol/L Carbon Dioxide 20 L (22-30) mmol/L BUN 41 H (9-20) mg/dL Creatinine 1.29 H (0.66-1.25) mg/dL Glucose 331 H (74-99) mg/dL POC Glucose (mg/dL) (75-99) mg/dL Hemoglobin A1c 11.5 H (0.0-6.0) % Troponin I 0.039 H* (0.000-0.034) ng/mL Triglycerides (0.00-149.00) mg/dL VLDL Cholesterol, Calc (5.00-40.00) mg/dL HDL Cholesterol (40.00-60.00) mg/dL 07/15/21 07/15/21 07/16/21 Range/Units 17:40 21:21 05:05 RBC (4.30-5.90) m/uL MCV (80.0-100.0) fL Sodium (137-145) mmol/L Carbon Dioxide (22-30) mmol/L BUN (9-20) mg/dL Creatinine (0.66-1.25) mg/dL Glucose (74-99) mg/dL POC Glucose (mg/dL) 350 H 360 H 299 H (75-99) mg/dL Hemoglobin A1c (0.0-6.0) % Troponin I (0.000-0.034) ng/mL Triglycerides (0.00-149.00) mg/dL VLDL Cholesterol, Calc (5.00-40.00) mg/dL HDL Cholesterol (40.00-60.00) mg/dL 07/16/21 07/16/21 07/16/21 Range/Units 06:18 06:18 06:18 RBC 3.93 L (4.30-5.90) m/uL MCV 103.7 H (80.0-100.0) fL Sodium 133 L (137-145) mmol/L Carbon Dioxide (22-30) mmol/L BUN 33 H (9-20) mg/dL Creatinine (0.66-1.25) mg/dL Glucose 244 H (74-99) mg/dL POC Glucose (mg/dL) (75-99) mg/dL Hemoglobin A1c (0.0-6.0) % Troponin I (0.000-0.034) ng/mL Triglycerides 339.00 H (0.00-149.00) mg/dL VLDL Cholesterol, Calc 67.80 H (5.00-40.00) mg/dL HDL Cholesterol 34.60 L (40.00-60.00) mg/dL 07/16/21 07/16/21 Range/Units 06:54 11:24 RBC (4.30-5.90) m/uL MCV (80.0-100.0) fL Sodium (137-145) mmol/L Carbon Dioxide (22-30) mmol/L BUN (9-20) mg/dL Creatinine (0.66-1.25) mg/dL Glucose (74-99) mg/dL POC Glucose (mg/dL) 241 H 343 H (75-99) mg/dL Hemoglobin A1c (0.0-6.0) % Troponin I (0.000-0.034) ng/mL Triglycerides (0.00-149.00) mg/dL VLDL Cholesterol, Calc (5.00-40.00) mg/dL HDL Cholesterol (40.00-60.00) mg/dL Assessment and Plan Plan: 1 acute DKA in the patient with known history of type 2 diabetes mellitus maintained on metformin outpatient basis. The patient recovers from his DKA and the patient is currently on Levemir insulin along with NovoLog with meals and a slight scale coverage. Hemoglobin A1c is at 11. Blood sugars under better control. Anion gap has recovered 2 acute kidney injury secondary to above, recovered 3 acute non-ST segment elevation myocardial infarction, currently free of any chest pain. Echo shows normal LV function. 4 Coronary artery disease 5 history of chronic atrial fibrillation current rhythm is paced 6 hypertension 7 hyperlipidemia 8 hypothyroidism 9 chronic anxiety/depression 10 previous history of smoking 11 Chronic back pain and the patient has a pain pump (morphine) 12 to the hyponatremia, normalized Plan IV fluids to KVO Levemir insulin 60 units twice a day along with NovoLog 10 units with meals and a sliding scale coverage Echo was noted and essentially within normal limits Chest x-ray is normal Hemodynamically stable Restart home medication including Xarelto on aspirin, Lipitor, Seroquel, BuSpar Consult with cardiology regarding the troponin leak and non-STEMI, awaiting further recommendations We'll transfer this patient to telemetry. Monitor blood sugars. We'll follow.
--- NOTE | 2021-07-16 15:56 | P.PN ---
Subjective Progress Note Date: 07/16/21 (delayed charting seen at 1015) The patient is a 65-year-old male with known A. fib status post pacemaker on Xarelto, hypertension, type II DM on oral metformin, hyperlipidemia who presented to the emergency room with complaints of chest pain, urinary frequency, and increased thirst. He had been out of his prescription of metformin for the last 6-8 weeks. In the ER he underwent an extensive e valuation was noted to have A. fib with RVR on arrival. Laboratory analysis showed diabetic ketoacidosis. He also was found have a mildly elevated troponin at 0.089. He was started on IV fluids and an insulin infusion. Arrangements were made for admission to the ICU. His anion gap closed and he was transitioned to long-acting and short-acting subcutaneous insulin. He was seen by cardiology and underwent echocardiogram which showed an ejection fraction of 50% and no significant wall motion abnormalities along with some LVH. Patient seen and examined at bedside. He is feeling much better than at admission. He reports that he is feeling slightly tired. No nausea or vomiting. His appetite is slowly returning. He is very frustrated that he was out of his medications for so long. General: Ill-appearing, no distress, appears at stated age Derm: warm, dry Head: atraumatic, normocephalic, symmetric Eyes: EOMI, no lid lag, anicteric sclera Mouth: no lip lesion, mucus membranes moist Cardiovascular: S1S2 irreg, no murmur, positive posterior tibial pulse bilateral, Lungs: Coarse breath sounds bilateral, no rhonchi, no rales , no accessory muscle use Abdominal: soft, nontender to palpation, no guarding, no appreciable organomegaly Ext: no gross muscle atrophy, no edema, no contractures Neuro: CN II-XI grossly intact, no focal neuro deficits Psych: Alert, oriented, appropriate affect Assessment/Plan: DKA DM2 with hyperglycemia - A1C 11.9 - fixed dose, long acting and SSI - stafford check insulin - follow BS - anticipate home with insulin and oral medications - dietitian recs -outpatient DM education NSTEMI A fib with RVR- suspect due to DKA and electrolyte changes - serial troponins - ASA, xarelto, statin - echo with preserved wall motion ROBIN Hyperkalemia Chronic: HTN HLD DVT prophylaxis: Xarelto Discussed with: Patient, nursing, CM Anticipated discharge: in AM Anticipated discharge place: home A total of 37 minutes was spent on the care of this complex patient more than 50% of the time was spent in counseling and care coordination. Active Medications Generic Name Dose Route Start Last Admin Trade Name Sepideh PRN Reason Stop Dose Admin Aspirin 81 mg 07/15/21 09:00 07/16/21 08:21 Aspirin 81 Mg PO 81 mg DAILY [facility] Administration Atorvastatin Calcium 40 mg 07/15/21 09:00 07/16/21 08:14 Atorvastatin 40 Mg Tab PO 40 mg DAILY [facility] Administration Bupropion HCl 150 mg 07/15/21 09:00 07/16/21 08:15 Bupropion Xl 150 Mg Tab.Er.24h PO 150 mg DAILY [facility] Administration Bupropion HCl 300 mg 07/15/21 09:00 07/16/21 08:15 Bupropion Xl 300 Mg Tab.Er.24h PO 300 mg DAILY [facility] Administration Carbamazepine 400 mg 07/15/21 00:45 07/16/21 11:34 Carbamazepine 200 Mg Tab PO 400 mg Q12H [facility] Administration Clonazepam 1 mg 07/15/21 09:00 07/16/21 08:14 Clonazepam 1 Mg Tab PO 1 mg TID [facility] Administration Diltiazem HCl 180 mg 07/15/21 09:00 07/16/21 08:15 Diltiazem Cd 180 Mg Cap.Er.24h PO 180 mg DAILY [facility] Administration Docusate Sodium 100 mg 07/15/21 09:00 07/16/21 08:14 Docusate 100 Mg Cap PO 100 mg DAILY [facility] Administration Insulin Aspart 0 unit 07/15/21 12:30 07/16/21 11:34 Insulin Aspart (Novolog) 100 Unit/Ml Vial SQ 6 unit ACHS [facility] Administration Protocol Insulin Aspart 10 unit 07/15/21 17:30 07/16/21 11:34 Insulin Aspart (Novolog) 100 Unit/Ml Vial SQ 10 unit AC-TID [facility] Administration Insulin Detemir 16 unit 07/15/21 21:00 07/16/21 08:14 Insulin Detemir (Levemir) 100 Unit/Ml Syr SQ 16 unit BID [facility] Administration Levothyroxine Sodium 75 mcg 07/15/21 06:30 07/16/21 05:54 Levothyroxine 75 Mcg Tab PO 75 mcg DAILY@0630 [facility] Administration Losartan Potassium 100 mg 07/15/21 21:00 07/15/21 22:56 Losartan 50 Mg Tab PO 100 mg HS [facility] Administration Miscellaneous Information 1 each 07/15/21 00:43 Magnesium Replacement Protocol 1 Each Misc MISCELLANE DAILY PRN Per Protocol Protocol Miscellaneous Information 1 each 07/15/21 00:43 Potassium Replacement Protocol 1 Each Misc MISCELLANE DAILY PRN Per Protocol Nitroglycerin 0.4 mg 07/15/21 00:38 07/15/21 03:46 Nitroglycerin Sl Tabs 0.4 Mg Tab SUBLINGUAL 0.4 mg Q5M PRN Administration Chest Pain Nitroglycerin 1 inch 07/15/21 18:00 07/16/21 11:27 Nitroglycerin Oint 1 Inch/Gm Packet TOPICAL Not Given Q6HR [facility] Quetiapine Fumarate 400 mg 07/15/21 21:00 07/15/21 22:58 Quetiapine 400 Mg Tab PO 400 mg HS [facility] Administration Rivaroxaban 20 mg 07/15/21 09:00 07/16/21 08:15 Rivaroxaban 20 Mg Tab PO 20 mg DAILY [facility] Administration Protocol Venlafaxine HCl 100 mg 07/15/21 16:00 07/16/21 08:16 Venlafaxine Hcl 50 Mg Tab PO 100 mg TID [facility] Administration Objective - Vital Signs Vital signs: Vital Signs Temp 97.6 F 07/16/21 04:00 Pulse 60 07/16/21 12:56 Resp 17 07/16/21 12:00 BP 106/57 07/16/21 12:56 Pulse Ox 95 07/16/21 12:56 Intake & Output 07/15/21 07/16/21 07/16/21 18:59 06:59 18:59 Intake Total 1650.133 850 350 Output Total 1150 650 750 Balance 500.133 200 -400 Weight 82.5 kg 82.5 kg Intake: IV 1350 850 50 D5-0.45% NaCl with KCl 1350 850 50 20Meq/l 1,000 ml @ 100 mls/hr IV .Q10H [facility] Rx#: [id number] Intake, IV Titration 50.133 Amount Insulin Regular 100 unit 50.133 In Sodium Chloride 0.9% 100 ml @ 0.1 UNITS/KG/HR 8.475 mls/hr IV .[id number] [facility] Rx#:[id number] Oral 250 300 Output: Urine 1150 650 750 Other: Voiding Method Urinal Urinal Urinal # Voids 1 1 - Labs CBC & Chem 7: 07/16/21 06:18 07/16/21 06:18 Labs: Abnormal Lab Results - Last 24 Hours (Table) 07/14/21 07/15/21 07/15/21 Range/Units 20:34 15:24 16:42 RBC (4.30-5.90) m/uL MCV (80.0-100.0) fL Sodium 130 L (137-145) mmol/L Carbon Dioxide 20 L (22-30) mmol/L BUN 41 H (9-20) mg/dL Creatinine 1.29 H (0.66-1.25) mg/dL Glucose 331 H (74-99) mg/dL POC Glucose (mg/dL) (75-99) mg/dL Hemoglobin A1c 11.5 H (0.0-6.0) % Troponin I 0.039 H* (0.000-0.034) ng/mL Triglycerides (0.00-149.00) mg/dL VLDL Cholesterol, Calc (5.00-40.00) mg/dL HDL Cholesterol (40.00-60.00) mg/dL 07/15/21 07/15/21 07/16/21 Range/Units 17:40 21:21 05:05 RBC (4.30-5.90) m/uL MCV (80.0-100.0) fL Sodium (137-145) mmol/L Carbon Dioxide (22-30) mmol/L BUN (9-20) mg/dL Creatinine (0.66-1.25) mg/dL Glucose (74-99) mg/dL POC Glucose (mg/dL) 350 H 360 H 299 H (75-99) mg/dL Hemoglobin A1c (0.0-6.0) % Troponin I (0.000-0.034) ng/mL Triglycerides (0.00-149.00) mg/dL VLDL Cholesterol, Calc (5.00-40.00) mg/dL HDL Cholesterol (40.00-60.00) mg/dL 07/16/21 07/16/21 07/16/21 Range/Units 06:18 06:18 06:18 RBC 3.93 L (4.30-5.90) m/uL MCV 103.7 H (80.0-100.0) fL Sodium 133 L (137-145) mmol/L Carbon Dioxide (22-30) mmol/L BUN 33 H (9-20) mg/dL Creatinine (0.66-1.25) mg/dL Glucose 244 H (74-99) mg/dL POC Glucose (mg/dL) (75-99) mg/dL Hemoglobin A1c (0.0-6.0) % Troponin I (0.000-0.034) ng/mL Triglycerides 339.00 H (0.00-149.00) mg/dL VLDL Cholesterol, Calc 67.80 H (5.00-40.00) mg/dL HDL Cholesterol 34.60 L (40.00-60.00) mg/dL 07/16/21 07/16/21 Range/Units 06:54 11:24 RBC (4.30-5.90) m/uL MCV (80.0-100.0) fL Sodium (137-145) mmol/L Carbon Dioxide (22-30) mmol/L BUN (9-20) mg/dL Creatinine (0.66-1.25) mg/dL Glucose (74-99) mg/dL POC Glucose (mg/dL) 241 H 343 H (75-99) mg/dL Hemoglobin A1c (0.0-6.0) % Troponin I (0.000-0.034) ng/mL Triglycerides (0.00-149.00) mg/dL VLDL Cholesterol, Calc (5.00-40.00) mg/dL HDL Cholesterol (40.00-60.00) mg/dL
[2021-07-16 16:41] LABS: Glucose,Whole Blood 208 mg/dL (75-99)
[2021-07-16 20:23] LABS: Glucose,Whole Blood 159 mg/dL (75-99)
[2021-07-16] MEDS: QUEtiapine 400 MG TAB PO SCH (21:03)
[2021-07-16] MEDS: LOSARTAN 50 MG TAB PO SCH (21:03)
[2021-07-17] MEDS: LEVOTHYROXINE 75 MCG TAB PO SCH (05:47)
[2021-07-17] MEDS: NITROGLYCERIN OINT 1 INCH/GM PACKET TOPICAL SCH (05:47)
[2021-07-17 06:54] LABS: Glucose,Whole Blood 158 mg/dL (75-99)
[2021-07-17] MEDS: INSULIN ASPART (NovoLOG) 100 UNIT/ML VIAL SQ SCH ×4 (06:57→12:36)
[2021-07-17] MEDS: INSULIN DETEMIR (LEVEMIR) 100 UNIT/ML SYR SQ SCH (10:08)
[2021-07-17] MEDS: buPROPion XL 300 MG TAB.ER.24H PO SCH (10:08)
[2021-07-17] MEDS: RIVAROXABAN 20 MG TAB PO SCH (10:08)
[2021-07-17] MEDS: VENLAFAXINE HCL 50 MG TAB PO SCH (10:09)
[2021-07-17] MEDS: clonazePAM 1 MG TAB PO SCH (10:09)
[2021-07-17] MEDS: ATORVASTATIN 40 MG TAB PO SCH (10:10)
[2021-07-17] MEDS: DOCUSATE 100 MG CAP PO SCH (10:10)
[2021-07-17] MEDS: DILTIAZEM CD 180 MG CAP.ER.24H PO SCH (10:10)
[2021-07-17] MEDS: buPROPion XL 150 MG TAB.ER.24H PO SCH (10:10)
[2021-07-17] MEDS: ASPIRIN 81 MG PO SCH (10:10)
[2021-07-17 12:13] LABS: Glucose,Whole Blood 174 mg/dL (75-99)
[2021-07-17 12:36] VITALS: BP 129/71; PULSE 64; RESP 18; TEMP 98
[2021-07-17] MEDS: carBAMazepine 200 MG TAB PO SCH (12:36)
--- NOTE | 2021-07-17 12:39 | P.PN ---
<Chica Valadez - Last Filed: 07/17/21 12:33> Subjective Progress Note Date: 07/17/21 65-year-old male patient presented to the emergency department yesterday with chest pain, dehydration and hyperglycemia. The patient was found to be in DKA. The patient is known to have diabetes mellitus in his been off metformin for the past 6 weeks. He is known to have COPD, H a fibrillation, and he has a permanent pacemaker in place along with hypertension and type 2 diabetes mellitus and hyperlipidemia and hypothyroidism. His been having increased chest pain, urinary frequency, polyuria, polydipsia. He presented to the ED, initial workup showed hyperglycemia with a sugar of 794, the sedation I gap was 24, sodium was at 123, potassium was at 5.7, serum bicarb was 11, BUN was 48 with a creatinine of 1.7. Acetone was positive in the sputum. Troponin initially was 0.08 and came at 0.09 and is down to 0.07. His cardiac rhythm was paced. EKG showed a paced rhythm. Overnight, the patient was given IV fluids and received IV fluids and following that he was switched to D5 half-normal saline today to 150 mL an hour. He was also started on insulin drip and currently insulin drip is running at 9 units an hour. Blood sugars under better control for now. Most recent electrolytes are showing a sodium of 128, serum bicarb of 20, BUN of 47 with a creatinine of 1.4. Most recent blood sugar is down to 241. Normal coa gulation profile. With that was at 9.4 with a hemoglobin of 14.8. Chest x-ray showed no acute abnormalities. He is currently free of any chest pain. Cardiology will be evaluating this patient. He is hemodynamically stable on no pressors. He is known to take Xarelto on outpatient basis for long-term anticoagulation. Furthermore, the patient is fully vaccinated for COVID 19. He states that he was infected with COVID 19 following his vaccination and is not exactly sure of the date of the reinfection. Patient has chronic back pain. The patient has a pain pump with morphine. The patient quit smoking recently approximately 2 months ago. 07/16/2021, seeing the patient for a follow-up. The patient is doing well. The patient is awake and alert. The patient is tolerating his diet. He was started on long-acting insulin as the patient's hemoglobin A1c was above 11. Anion gap is closed and the patient's DKA has recovered. The patient continues to have some patient hyperglycemia. The D5 half-normal infusion was discontinued today. No significant cough or sputum production. He was having on and off chest pain yesterday and this morning history of any chest pain. He does not have a local document control coordinator and his document control coordinator out of [facility]. No nausea. No vomiting. No diarrhea. No abdominal pain. The white cell count at 7.3 with a hemoglobin of 13.6, BUN is at 33 with a creatinine of 1.1, serum bicarbonate 22, triglycerides 339 and LDL cholesterol is at 77. For now, the patient on Levemir insulin 16 units twice a day and NovoLog 10 units with meals and this lasted coverage. Outpatient medications were resumed. His cardiac rhythm remains paced and the patient is on long-term and to coagulation with Xarelto. Psychiatric medications were all resumed. Echo was completed and showed an ejection fraction of 55-60%. No valvular abnormalities noted. The patient is seen today 07/17/2021 in follow-up on the selective care unit. He is currently sitting up in bed. Awake and alert in no acute distress. He denies any worsening shortness of breath, cough or congestion. He is maintaining good O2 saturations in the 90s on room air. He is afebrile. Hemodynamically stable. Blood glucose 174. Appendectomy is continued on Levemir 16 units twice a day along with NovoLog sliding scale. He is anticoagulated with Xarelto. Cardizem for rate control. Heart rate currently in the 60s. Objective - Vital Signs Vital signs: Vital Signs Temp 98.1 F 07/17/21 10:06 Pulse 68 07/17/21 10:06 Resp 19 07/17/21 10:06 BP 120/67 07/17/21 10:06 Pulse Ox 93 L 07/17/21 10:06 Intake & Output 07/16/21 07/17/21 07/17/21 18:59 06:59 18:59 Intake Total 750 0 Output Total 750 400 Balance 0 -400 0 Weight 82.5 kg Intake: IV 50 D5-0.45% NaCl with KCl 50 20Meq/l 1,000 ml @ 100 mls/hr IV .Q10H [facility] Rx#: [id number] Oral 700 0 Output: Urine 750 400 Other: Voiding Method Urinal Urinal Urinal # Voids 1 1 - Exam GENERAL EXAM: Alert, active, pleasant 65-year-old gentleman, on room air, comfortable in no apparent distress. HEAD: Normocephalic. EYES: Normal reaction of pupils, equal size. NOSE: Clear with pink turbinates. THROAT: No erythema or exudates. NECK: No masses, no JVD. CHEST: No chest wall deformity. LUNGS: Equal air entry with no crackles, wheeze, rhonchi or dullness. CVS: S1 and S2 normal with no audible murmur, regular rhythm. ABDOMEN: No hepatosplenomegaly, normal bowel sounds, no guarding or rigidity. SPINE: No scoliosis or deformity SKIN: No rashes CENTRAL NERVOUS SYSTEM: No focal deficits, tone is normal in all 4 extremities. EXTREMITIES: There is no peripheral edema. No clubbing, no cyanosis. Peripheral pulses are intact. - Labs CBC & Chem 7: 07/16/21 06:18 07/16/21 06:18 Labs: Abnormal Lab Results - Last 24 Hours (Table) 07/16/21 07/16/21 07/17/21 Range/Units 16:37 20:22 06:52 POC Glucose (mg/dL) 208 H 159 H 158 H (75-99) mg/dL 07/17/21 Range/Units 12:12 POC Glucose (mg/dL) 174 H (75-99) mg/dL Assessment and Plan Assessment: 1 acute DKA in the patient with known history of type 2 diabetes mellitus maintained on metformin outpatient basis. The patient recovers from his DKA and the patient is currently on Levemir insulin along with NovoLog with meals and a slight scale coverage. Hemoglobin A1c is at 11. Blood sugars under better control. Anion gap has recovered, maintained on Levemir and NovoLog. 2 acute kidney injury secondary to above, recovered 3 acute non-ST segment elevation myocardial infarction, currently free of any chest pain. Echo shows normal LV function. 4 coronary artery disease 5 history of chronic atrial fibrillation current rhythm is paced 6 hypertension 7 hyperlipidemia 8 hypothyroidism 9 chronic anxiety/depression 10 previous history of smoking 11 Chronic back pain and the patient has a pain pump (morphine) 12 to the hyponatremia, normalized Plan The patient was seen and evaluated Stable from the pulmonary and critical care standpoint Educated regarding the importance of medication compliance and blood glucose control Continued on Xarelto and Cardizem We will see as needed I, the cosigning physician, performed a history & physical examination of the patient. Lungs sounds are clear. Maintaining good O2 saturations in the 90s on room air. I discussed the assessment and plan of care with my nurse practitioner, Chica Valadez. I attest to the above note as dictated by her. I have personally seen and examined the patient, performed the documentation and the assessment and plan as written. Number of minutes spent on the visit: 10. <Georgia Alicea - Last Filed: 07/17/21 18:05> Objective - Vital Signs Vital signs: Vital Signs Temp 98 F 07/17/21 12:35 Pulse 64 07/17/21 12:35 Resp 18 07/17/21 12:35 BP 129/71 07/17/21 12:35 Pulse Ox 97 07/17/21 12:35 Intake & Output 07/16/21 07/17/21 07/17/21 18:59 06:59 18:59 Intake Total 750 720 Output Total 750 400 Balance 0 -400 720 Weight 82.5 kg Intake: IV 50 D5-0.45% NaCl with KCl 50 20Meq/l 1,000 ml @ 100 mls/hr IV .Q10H [facility] Rx#: [id number] Oral 700 720 Output: Urine 750 400 Other: Voiding Method Urinal Urinal Urinal # Voids 1 1 - Labs CBC & Chem 7: 07/16/21 06:18 07/16/21 06:18 Labs: Abnormal Lab Results - Last 24 Hours (Table) 07/16/21 07/17/21 07/17/21 Range/Units 20:22 06:52 12:12 POC Glucose (mg/dL) 159 H 158 H 174 H (75-99) mg/dL Assessment and Plan Assessment: This is a joint evaluations was done and the along with a nurse practitioner. Examination was in a more than 10 minutes. Fully tested information mentioned above. Again assessment and plan.
--- NOTE | 2021-07-17 13:50 | P.PN ---
<Jayla Lange - Last Filed: 07/17/21 13:48> Subjective Progress Note Date: 07/17/21 HISTORY OF PRESENT ILLNESS: Examined this morning at the bedside. Patient denies chest pain or pressure. He denies shortness of breath. Vital signs are stable. Echocardiogram completed revealing ejection fraction 55-60% with trace MR. PHYSICAL EXAM: VITAL SIGNS: Reviewed. GENERAL: Well-developed in no acute distress. NECK: Supple. No JVD or thyromegaly LUNGS: Respirations even and unlabored. Lungs essentially clear to auscultation bilaterally. HEART: Regular rate and rhythm. S1 and S2 heard. EXTREMITIES: Normal range of motion. No clubbing or cyanosis. Peripheral pulses intact. No lower extremity edema ASSESSMENT: DKA Abnormal troponins, not suggestive of ACS Paroxysmal atrial fibrillation History of sick sinus syndrome with pacemaker implantation Hypertension Hyperlipidemia PLAN: Continue current cardiac medications Patient is stable for discharge home today from a cardiac standpoint. We'll sign off. Please reconsult if needed. Nurse practitioner note has been reviewed by physician. Signing provider agrees with the documented findings, assessment, and plan of care. Objective - Vital Signs Vital signs: Vital Signs Temp 98 F 07/17/21 12:35 Pulse 64 07/17/21 12:35 Resp 18 07/17/21 12:35 BP 129/71 07/17/21 12:35 Pulse Ox 97 07/17/21 12:35 Intake & Output 07/16/21 07/17/21 07/17/21 18:59 06:59 18:59 Intake Total 750 0 Output Total 750 400 Balance 0 -400 0 Weight 82.5 kg Intake: IV 50 D5-0.45% NaCl with KCl 50 20Meq/l 1,000 ml @ 100 mls/hr IV .Q10H [facility] Rx#: [id number] Oral 700 0 Output: Urine 750 400 Other: Voiding Method Urinal Urinal Urinal # Voids 1 1 - Labs CBC & Chem 7: 07/16/21 06:18 07/16/21 06:18 Labs: Abnormal Lab Results - Last 24 Hours (Table) 07/16/21 07/16/21 07/17/21 Range/Units 16:37 20:22 06:52 POC Glucose (mg/dL) 208 H 159 H 158 H (75-99) mg/dL 07/17/21 Range/Units 12:12 POC Glucose (mg/dL) 174 H (75-99) mg/dL <Farrukh Frank - Last Filed: 07/17/21 14:09> Subjective Patient interviewed and examined by me. Data reviewed. Impression and plan formulated by me and discussed with nurse practitioner Nurse practitioner transcribed note on my behalf Objective - Vital Signs Vital signs: Vital Signs Temp 98 F 07/17/21 12:35 Pulse 64 07/17/21 12:35 Resp 18 07/17/21 12:35 BP 129/71 07/17/21 12:35 Pulse Ox 97 07/17/21 12:35 Intake & Output 07/16/21 07/17/21 07/17/21 18:59 06:59 18:59 Intake Total 750 180 Output Total 750 400 Balance 0 -400 180 Weight 82.5 kg Intake: IV 50 D5-0.45% NaCl with KCl 50 20Meq/l 1,000 ml @ 100 mls/hr IV .Q10H [facility] Rx#: [id number] Oral 700 180 Output: Urine 750 400 Other: Voiding Method Urinal Urinal Urinal # Voids 1 1 - Labs CBC & Chem 7: 07/16/21 06:18 07/16/21 06:18 Labs: Abnormal Lab Results - Last 24 Hours (Table) 07/16/21 07/16/21 07/17/21 Range/Units 16:37 20:22 06:52 POC Glucose (mg/dL) 208 H 159 H 158 H (75-99) mg/dL 07/17/21 Range/Units 12:12 POC Glucose (mg/dL) 174 H (75-99) mg/dL
--- NOTE | 2021-07-17 18:19 | P.DS ---
Providers Date of admission: 07/15/21 00:38 Expected date of discharge: 07/17/21 Attending physician: Patricia Mayer MD Consults: 07/15/21 00:38 Consult Physician Urgent Consulting Provider: Georgia Alicea Consult Reason/Comments: ICU management Do you want consulting provider notified?: Already Contacted Primary care physician: AIDEN Flores Hospital Course: Discharge Diagnosis: DKA DM2 with hyperglycemia - A1C 11.9 NSTEMI A fib with RVR- suspect due to DKA and electrolyte changes ROBIN Hyperkalemia HTN HLD Hospital Course: The patient is a 65-year-old male with known A. fib status post pacemaker on Xarelto, hypertension, type II DM on oral metformin, hyperlipidemia who presented to the emergency room with complaints of chest pain, urinary frequency, and increased thirst. He had been out of his prescription of metformin for the last 6-8 weeks. In the ER he underwent an extensive evaluation was noted to have A. fib with RVR on arrival. Laboratory analysis showed diabetic ketoacidosis. He also was found have a mildly elevated troponin at 0.089. He was started on IV fluids and an insulin infusion. Arrangements were made for admission to the ICU. His anion gap closed and he was transitioned to long-acting and short-acting subcutaneous insulin. He was seen by cardiology and underwent echocardiogram which showed an ejection fraction of 50% and no significant wall motion abnormalities along with some LVH. He continued to do well. His blood glucose normalized. Unfortunately has caused for Levemir would be $95 a month which is cost prohibitive to him. He can have for a while [id number] from [facility] for $25 a month which he thinks he can afford. I'm very concerned about him drawing up his own Insulin and injecting at this time, due to limited education resources. We discuseed that his sugars will likley he high on 15 units 70/30 BID with breakfast and dinner. He is aware of signs of hypoglycemia - tremor, confusion, sweating ect. He will follow with his primary LEVEL VIAL SETTER in [place] at 8 am for further education. He was alos started on ASA. He will take blood sugars 3 times daily. Patient seen and examined at bedside. Feeling well. Slightly tired today. All questions answered. We have extensive conversation about the use of insulin. 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 He feels competent with this. He reports that he cannot afford the $95 monthly for Levemir. I given the option of dharmesh ling either 70/30 pens at 15 units twice daily which will be $46 or via vial 15 units twice daily which will be $25 Vital signs reviewed and stable. General: non toxic, no distress, appears at stated age Derm: warm, dry Head: atraumatic, normocephalic, symmetric Eyes: EOMI, no lid lag, anicteric sclera Mouth: no lip lesion, mucus membranes moist Cardiovascular: S1S2 reg, no murmur, positive posterior tibial pulse bilateral, Lungs: CTA bilateral, no rhonchi, no rales , no accessory muscle use Abdominal: soft, nontender to palpation, no guarding, no appreciable organomegaly Ext: no gross muscle atrophy, no edema, no contractures Neuro: CN II-XI grossly intact, no focal neuro deficits Psych: Alert, oriented, appropriate affect A total of 47 minutes of time were spent preparing this complex discharge summary . Patient Condition at Discharge: Stable Plan - Discharge Summary Discharge Rx Participant: No New Discharge Prescriptions: New Insulin Aspart Prot/Insuln Asp [Relion Novolog 70-30 Flexpen] 15 units SQ AC- BID #5 pen Insulin Aspart Prot/Insuln Asp [Relion Novolog Mix 70-30 Vial] 15 units SQ AC-BID #10 ml Aspirin 81 mg PO DAILY Continue clonazePAM [KlonoPIN] 1 mg PO TID Rivaroxaban [Xarelto] 20 mg PO DAILY Diltiazem Cd [Cardizem CD] 180 mg PO DAILY Levothyroxine Sodium [Synthroid] 75 mcg PO DAILY Losartan Potassium 100 mg PO HS Atorvastatin [Lipitor] 40 mg PO DAILY metFORMIN HCL [Glucophage] 1,000 mg PO BID #60 tab Nitroglycerin Sl Tabs [Nitrostat] 0.4 mg SUBLINGUAL Q5M PRN PRN Reason: Chest Pain QUEtiapine [SEROquel] 400 mg PO HS carBAMazepine [TEGretol] 400 mg PO Q12H buPROPion XL [Wellbutrin XL] 150 mg PO DAILY buPROPion HCL [Wellbutrin XL] 300 mg PO DAILY Venlafaxine HCl [Effexor] 100 mg PO DAILY Docusate [Colace] 100 mg PO DAILY Venlafaxine HCl [Effexor] 100 mg PO TID Discharge Medication List Atorvastatin [Lipitor] 40 mg PO DAILY 07/14/21 [History] Diltiazem Cd [Cardizem CD] 180 mg PO DAILY 07/14/21 [History] Docusate [Colace] 100 mg PO DAILY 07/14/21 [History] Levothyroxine Sodium [Synthroid] 75 mcg PO DAILY 07/14/21 [History] Losartan Potassium 100 mg PO HS 07/14/21 [History] Nitroglycerin Sl Tabs [Nitrostat] 0.4 mg SUBLINGUAL Q5M PRN 07/14/21 [History] QUEtiapine [SEROquel] 400 mg PO HS 07/14/21 [History] Rivaroxaban [Xarelto] 20 mg PO DAILY 07/14/21 [History] Venlafaxine HCl [Effexor] 100 mg PO DAILY 07/14/21 [History] buPROPion HCL [Wellbutrin XL] 300 mg PO DAILY 07/14/21 [History] buPROPion XL [Wellbutrin XL] 150 mg PO DAILY 07/14/21 [History] carBAMazepine [TEGretol] 400 mg PO Q12H 07/14/21 [History] clonazePAM [KlonoPIN] 1 mg PO TID 07/14/21 [History] Venlafaxine HCl [Effexor] 100 mg PO TID 07/15/21 [History] Aspirin 81 mg PO DAILY 07/17/21 [Rx] Insulin Aspart Prot/Insuln Asp [Relion Novolog 70-30 Flexpen] 15 units SQ AC-BID #5 pen 07/17/21 [Rx] Insulin Aspart Prot/Insuln Asp [Relion Novolog Mix 70-30 Vial] 15 units SQ AC- BID #10 ml 07/17/21 [Rx] metFORMIN HCL [Glucophage] 1,000 mg PO BID #60 tab 07/17/21 [Rx] Follow up Appointment(s)/Referral(s): Brenda Hewitt NPC [Primary Care Provider] - 07/18/21 8:00 am (primary care doctor ) Patient Instructions/Handouts: Insulin NPH/Regular (By injection), A-fib (Atrial Fibrillation) (DC), Chest Pain (DC), What to Do if Your Blood Sugar is Low (DC) Activity/Diet/Wound Care/Special Instructions: Activity: as tolerated Diet: carb consistent Special Instructions: Check Blood sugars 3 times daily and make a list for your appointment Patient needs glucometer at discharge to manage insulin dependent diabetes. Patient needs to check cbg 3x/day Discharge Disposition: HOME SELF-CARE
== END 2021-07-17 15:04 | disposition home or self-care (01) | DRG 638 ==
LOC: EC 20:19 → 2SICU 07-15 00:38 → 3SCARD 07-16 12:44
PROVIDERS: ADMIT Internal Medicine; ATTEND Internal Medicine
DX: E11.10 Type 2 diabetes mellitus with ketoacidosis without coma (principal); E87.1 Hypo-osmolality and hyponatremia; N17.9 Acute kidney failure, unspecified; Z79.84 Long term (current) use of oral hypoglycemic drugs; G89.29 Other chronic pain; I10 Essential (primary) hypertension; I25.10 Atherosclerotic heart disease of native coronary artery without angina pectoris; E87.5 Hyperkalemia; F31.9 Bipolar disorder, unspecified; F41.9 Anxiety disorder, unspecified; I25.2 Old myocardial infarction; E03.9 Hypothyroidism, unspecified; E78.00 Pure hypercholesterolemia, unspecified; E78.5 Hyperlipidemia, unspecified; E86.0 Dehydration; I45.10 Unspecified right bundle-branch block; I48.0 Paroxysmal atrial fibrillation; J44.9 Chronic obstructive pulmonary disease, unspecified; Z79.01 Long term (current) use of anticoagulants; T38.3X6A Underdosing of insulin and oral hypoglycemic [antidiabetic] drugs, initial encounter; Z86.16 Personal history of COVID-19; Z91.128 Patient's intentional underdosing of medication regimen for other reason; Z79.890 Hormone replacement therapy; Z79.899 Other long term (current) drug therapy; Z95.0 Presence of cardiac pacemaker; Z96.89 Presence of other specified functional implants; F17.290 Nicotine dependence, other tobacco product, uncomplicated; Z88.0 Allergy status to penicillin; Z98.890 Other specified postprocedural states
CPT/HCPCS: 36415; 71046; 80048; 80051; 80053; 80061; 82009; 82565; 82803; 82947; 83036; 83690; 83735; 83880; 84100; 84484; 84520; 85025; 85610; 85730; 93005; 93306; 96361; 96374; 99291

== ENCOUNTER 2022-10-01 10:20 | Inpatient (IN) | payer MEDICARE ==
[2022-10-01] MEDS ORDERED: SODIUM CHLORIDE 0.9% 500 ML 500 ML IV STA (10:47)
--- NOTE | 2022-10-01 10:50 | ED ---
General Adult HPI - General Chief complaint: Weakness Stated complaint: Weakness Time Seen by Provider: 10/01/22 10:42 Source: patient, RN notes reviewed, old records reviewed Mode of arrival: ambulatory Limitations: no limitations - History of Present Illness Initial comments: 66-year-old male presents for evaluation of weakness and weight loss. Patient states his symptoms have progressed over the past one month. He's lost more than 20 pounds unintentionally. He's had a poor appetite. He states his stool is white. He does report some epigastric abdominal pain. No vomiting. No fever. - Related Data Home Medications Medication Instructions Recorded Confirmed Diltiazem Cd [Cardizem CD] 180 mg PO DAILY 07/14/21 10/01/22 Docusate [Colace] 100 mg PO BID 07/14/21 10/01/22 Levothyroxine Sodium [Synthroid] 75 mcg PO DAILY 07/14/21 10/01/22 Losartan Potassium 100 mg PO DAILY 07/14/21 10/01/22 QUEtiapine [SEROquel] 400 mg PO HS 07/14/21 10/01/22 buPROPion HCL [Wellbutrin XL] 300 mg PO DAILY 07/14/21 10/01/22 buPROPion XL [Wellbutrin XL] 150 mg PO DAILY 07/14/21 10/01/22 carBAMazepine [TEGretol] 400 mg PO BID 07/14/21 10/01/22 clonazePAM [KlonoPIN] 1 mg PO TID 07/14/21 10/01/22 Venlafaxine HCl [Effexor] 100 mg PO TID 07/15/21 10/01/22 Butalbital/Acetaminophen 50-325mg 1 tab PO BID PRN 10/01/22 10/01/22 Fenugreek Seed 1 cap PO BID 10/01/22 10/01/22 Insulin Aspart Prot/Insuln Asp 1 - 15 units SQ AC-BID PRN 10/01/22 10/01/22 [Relion Novolog 70-30 Flexpen] Relaxium-Sleep Otc 2 cap PO HS 10/01/22 10/01/22 Previous Rx's Medication Instructions Recorded metFORMIN HCL [Glucophage] 1,000 mg PO BID #60 tab 07/17/21 Allergies Allergy/AdvReac Type Severity Reaction Status Date / Time Penicillins Allergy Unknown Verified 10/01/22 12:04 Review of Systems ROS Statement: Those systems with pertinent positive or pertinent negative responses have been documented in the HPI. ROS Other: All systems not noted in ROS Statement are negative. Past Medical History Past Medical History: Atrial Fibrillation, Coronary Artery Disease (CAD), COPD, Diabetes Mellitus, Hyperlipidemia, Hypertension, Myocardial Infarction (DC), Thyroid Disorder Additional Past Medical History / Comment(s): DC 2019, hypothyroid Last Myocardial Infarction Date:: 2018 History of Any Multi-Drug Resistant Organisms: None Reported Past Surgical History: No Surgical Hx Reported Additional Past Surgical History / Comment(s): pacemaker insertion Past Anesthesia/Blood Transfusion Reactions: No Reported Reaction Past Psychological History: Anxiety, Bipolar, Depression Smoking Status: Former smoker, Vaper Past Alcohol Use History: None Reported Past Drug Use History: None Reported - Past Family History Father Family Medical History: Cancer, COPD, Hearing Disorder / Deafness Mother Family Medical History: COPD General Exam Limitations: no limitations General appearance: lethargic, cachectic Eye exam: Present: normal appearance, PERRL ENT exam: Present: mucous membranes dry Respiratory exam: Present: normal lung sounds bilaterally. Absent: respiratory distress, wheezes Cardiovascular Exam: Present: regular rate, normal rhythm GI/Abdominal exam: Present: soft, tenderness (Epigastric) Extremities exam: Present: normal inspection, normal capillary refill. Absent: calf tenderness Neurological exam: Present: alert, oriented X3, CN II-XII intact. Absent: motor sensory deficit Psychiatric exam: Present: flat affect Skin exam: Present: warm, pallor Course Vital Signs 10/01/22 10/01/22 10:25 12:35 Temperature 97.8 F Pulse Rate 62 60 Respiratory 20 16 Rate Blood Pressure 116/66 111/73 O2 Sat by Pulse 97 94 L Oximetry EKG Findings - EKG Comments: EKG Findings:: EKG: Paced rhythm rate of 60, MO interval 162, QRS duration 132, QTC 411 Medical Decision Making - Medical Decision Making Was pt. sent in by a medical professional or institution (, PA, BORING MILL OPERATOR, urgent care, hospital, or penitentiary...) When possible be specific @ -No Did you speak to anyone other than the patient for history (EMS, parent, family, police, friend...)? What history was obtained from this source @ -No Did you review nursing and triage notes (agree or disagree)? Why? @ -I reviewed and agree with nursing and triage notes Were old charts reviewed (outside hosp., previous admission, EMS record, old EKG, old radiological studies, urgent care reports/EKG's, penitentiary records)? Report findings @ -No old charts were reviewed Differential Diagnosis (chest pain, altered mental status, abdominal pain women, abdominal pain men, vaginal bleeding, weakness, fever, dyspnea, syncope, headache, dizziness, GI bleed, back pain, seizure, CVA, palpatations, mental health, musculoskeletal)? @ Differential Weakness: Hypoglycemia, shock, sepsis, hyponatremia, anemia, infection, DC, ETOH, adverse medicine reaction, overdose, stroke, this is not meant to be an all-inclusive list. EKG interpreted by me (3pts min.). @ -As above X-rays interpreted by me (1pt min.). @Chest x-ray negative for acute cardiopulmonary findings CT interpreted by me (1pt min.). @ -None done U/S interpreted by me (1pt. min.). @Liver mass, no obstruction What testing was considered but not performed or refused? (CT, X-rays, U/S, labs)? Why? @ -None What meds were considered but not given or refused? Why? @ -None Did you discuss the management of the patient with other professionals (professionals i.e. , PA, BORING MILL OPERATOR, lab, RT, psych nurse, social insurance specialist, space buyer, teacher, school resource officer, casework manager)? Give summary @ - Sheet Was smoking cessation discussed for >3mins.? @ -No Was critical care preformed (if so, how long)? @ -No Were there social determinants of health that impacted care today? How? (Homelessness, low income, unemployed, alcoholism, drug addiction, transportation, low edu. Level, literacy, decrease access to med. care, half-way, rehab)? @ -No Was there de-escalation of care discussed even if they declined (Discuss DNR or withdrawal of care, Hospice)? DNR status @ -No What co-morbidities impacted this encounter? (DM, HTN, Smoking, COPD, CAD, Cancer, CVA, ARF, Chemo, Hep., AIDS, mental health diagnosis, sleep apnea, morbid obesity)? @ A. fib, pacemaker Was patient admitted / discharged? Hospital course, mention meds given and route, prescriptions, significant lab abnormalities, going to OR and other pertinent info. @ 66-year-old male presenting with weight loss, generalized weakness. Patient did have some epigastric tenderness and reported light-colored stool. I obtained an ultrasound of the liver which showed a 6.3 cm liver mass. Laboratory testing revealed a hypomagnesemia with no other acute findings. His magnesium is replaced patient will be admitted for generalized weakness, hypomagnesemia, liver mass. Undiagnosed new problem with uncertain prognosis? @ -No Drug Therapy requiring intensive monitoring for toxicity (Heparin, Nitro, Insulin, Cardizem)? @ -No Were any procedures done? @ -No Diagnosis/symptom? @ Hypomagnesemia, generalized weakness, liver mass Acute, or Chronic, or Acute on Chronic? @ Acute Uncomplicated (without systemic symptoms) or Complicated (systemic symptoms)? @ -Complicated Side effects of treatment? @ -No Exacerbation, Progression, or Severe Exacerbation? @ -No Poses a threat to life or bodily function? How? (Chest pain, USA, DC, pneumonia, PE, COPD, DKA, ARF, appy, cholecystitis, CVA, Diverticulitis, Homicidal, Suicidal, threat to staff... and all critical care pts) @ -yes, electrolytes abnormality, arrhythmia - Lab Data Result diagrams: 10/01/22 11:00 10/01/22 11:00 Lab Results 10/01/22 10/01/22 10/01/22 Range/Units 11:00 11:00 11:00 WBC 8.6 (3.8-10.6) k/uL RBC 3.71 L (4.30-5.90) m/uL Hgb 12.3 L (13.0-17.5) gm/dL Hct 36.8 L (39.0-53.0) % MCV 99.4 (80.0-100.0) fL MCH 33.2 (25.0-35.0) pg MCHC 33.4 (31.0-37.0) g/dL RDW 12.7 (11.5-15.5) % Plt Count 256 (150-450) k/uL MPV 7.9 Neutrophils % 79 % Lymphocytes % 9 % Monocytes % 9 % Eosinophils % 1 % Basophils % 0 % Neutrophils # 6.8 (1.3-7.7) k/uL Lymphocytes # 0.8 L (1.0-4.8) k/uL Monocytes # 0.8 (0-1.0) k/uL Eosinophils # 0.1 (0-0.7) k/uL Basophils # 0.0 (0-0.2) k/uL PT 13.1 H (9.0-12.0) sec INR 1.3 H (<1.2) APTT 28.9 (22.0-30.0) sec Sodium 138 (137-145) mmol/L Potassium 4.3 (3.5-5.1) mmol/L Chloride 101 (98-107) mmol/L Carbon Dioxide 20 L (22-30) mmol/L Anion Gap 17 mmol/L BUN 18 (9-20) mg/dL Creatinine 1.01 (0.66-1.25) mg/dL Est GFR (CKD-EPI)AfAm >90 (>60 ml/min/1.73 sqM) Est GFR (CKD-EPI)NonAf 78 (>60 ml/min/1.73 sqM) Glucose 152 H (74-99) mg/dL Plasma Lactic Acid Cody (0.7-2.0) mmol/L Calcium 8.8 (8.4-10.2) mg/dL Magnesium 1.1 L (1.6-2.3) mg/dL Total Bilirubin 1.0 (0.2-1.3) mg/dL AST 66 H (17-59) U/L ALT 22 (4-49) U/L Alkaline Phosphatase 135 H (38-126) U/L Troponin I (0.000-0.034) ng/mL Total Protein 7.0 (6.3-8.2) g/dL Albumin 4.1 (3.5-5.0) g/dL 10/01/22 10/01/22 Range/Units 11:00 11:00 WBC (3.8-10.6) k/uL RBC (4.30-5.90) m/uL Hgb (13.0-17.5) gm/dL Hct (39.0-53.0) % MCV (80.0-100.0) fL MCH (25.0-35.0) pg MCHC (31.0-37.0) g/dL RDW (11.5-15.5) % Plt Count (150-450) k/uL MPV Neutrophils % % Lymphocytes % % Monocytes % % Eosinophils % % Basophils % % Neutrophils # (1.3-7.7) k/uL Lymphocytes # (1.0-4.8) k/uL Monocytes # (0-1.0) k/uL Eosinophils # (0-0.7) k/uL Basophils # (0-0.2) k/uL PT (9.0-12.0) sec INR (<1.2) APTT (22.0-30.0) sec Sodium (137-145) mmol/L Potassium (3.5-5.1) mmol/L Chloride (98-107) mmol/L Carbon Dioxide (22-30) mmol/L Anion Gap mmol/L BUN (9-20) mg/dL Creatinine (0.66-1.25) mg/dL Est GFR (CKD-EPI)AfAm (>60 ml/min/1.73 sqM) Est GFR (CKD-EPI)NonAf (>60 ml/min/1.73 sqM) Glucose (74-99) mg/dL Plasma Lactic Acid Cody 1.8 (0.7-2.0) mmol/L Calcium (8.4-10.2) mg/dL Magnesium (1.6-2.3) mg/dL Total Bilirubin (0.2-1.3) mg/dL AST (17-59) U/L ALT (4-49) U/L Alkaline Phosphatase (38-126) U/L Troponin I 0.021 (0.000-0.034) ng/mL Total Protein (6.3-8.2) g/dL Albumin (3.5-5.0) g/dL Disposition Clinical Impression: Dehydration, Hypomagnesemia, Liver mass Disposition: ADMITTED IP TO THIS HOSP Condition: Stable Is patient prescribed a controlled substance at d/c from ED?: No Referrals: None,Stated [Primary Care Provider] - 1-2 days Time of Disposition: 14:00
[2022-10-01 11:24] LABS: Basophils % (A) 0 %; Eosinophils # (A) 0.1 k/uL (0-0.7); Eosinophils % (A) 1 %; HCT 36.8 % (39.0-53.0); HGB 12.3 gm/dL (13.0-17.5); Lymphocytes # (A) 0.8 k/uL (1.0-4.8); Lymphocytes % (A) 9 %; MCH 33.2 pg (25.0-35.0); MCHC 33.4 g/dL (31.0-37.0); MCV 99.4 fL (80.0-100.0); Mean Platelet Volume 7.9; Monocytes # (A) 0.8 k/uL (0-1.0); Monocytes % (A) 9 %; Neutrophils # (A) 6.8 k/uL (1.3-7.7); Neutrophils % (A) 79 %; Platelet Count 256 k/uL (150-450); RBC 3.71 m/uL (4.30-5.90); RDW 12.7 % (11.5-15.5); WBC 8.6 k/uL (3.8-10.6)
[2022-10-01 11:42] LABS: INR 1.3 (<1.2); Partial Thromboplastin Time 28.9 sec (22.0-30.0); Prothrombin Time 13.1 sec (9.0-12.0)
[2022-10-01 11:48] LABS: ALT 22 U/L (4-49); AST 66 U/L (17-59); African American GFR (CKD) >90 (>60 ml/min/1.73 sqM); Albumin 4.1 g/dL (3.5-5.0); Alkaline Phosphatase 135 U/L (38-126); Anion Gap 17 mmol/L; Blood Urea Nitrogen 18 mg/dL (9-20); Calcium 8.8 mg/dL (8.4-10.2); Carbon Dioxide 20 mmol/L (22-30); Chloride 101 mmol/L (98-107); Glucose 152 mg/dL (74-99); Magnesium 1.1 mg/dL (1.6-2.3); Non-African American GFR(CKD) 78 (>60 ml/min/1.73 sqM); Potassium 4.3 mmol/L (3.5-5.1); Sodium 138 mmol/L (137-145)
--- NOTE | 2022-10-01 11:48 | XR ---
EXAMINATION TYPE: XR chest 2V DATE OF EXAM: 10/01/2022 COMPARISON: 07/14/2021 HISTORY: 66-year-old male with weakness TECHNIQUE: PA and lateral views FINDINGS: Left anterior chest wall pacemaker generator with right atrial and right ventricular leads. Heart nor mal size. Aorta and pulmonary vasculature within normal limits. No consolidation or pleural effusion. IMPRESSION: No acute cardiopulmonary process.
[2022-10-01] MEDS: MAGNESIUM SULFATE-D5W PMX 1 GM in DEXTROSE/WATER 1 100ML.BAG IVPB SCH ×2 (12:35→13:36)
--- NOTE | 2022-10-01 12:58 | US ---
EXAMINATION TYPE: US gallbladder DATE OF EXAM: 10/01/2022 COMPARISON: NONE CLINICAL INDICATION: Male, 66 years old with history of ab pain; pain and nausea x 2 months, white st ools for 2 months, lost 20lbs TECHNIQUE: Multiple sonographic images of the right upper quadrant are obtained. FINDINGS: EXAM MEASUREMENTS: Liver Length: 18.1 cm Gallbladder Wall: 0.3 cm CBD: 0.5 cm Right Kidney: 7.5 x 2.9 x 2.9 cm Pancreas: Only a small portion of the pancreatic neck is seen. Remainder is obscured by bowel gas sha dowing. Liver: multiple solid appearing masses seen, left lobe lesion =6.2 x 5.5 x 6.3cm, largest right lobe lesion = 10.3 x 7.5 x 8.5cm . wnllbladder: wnl Evidence for sonographic Munohy's siwnl no CBD: wnl Right Kidney: horseshoe kidney. No hydronephrosis. PRESSION: 1. There appear to be solid masses within the liver. In the left lobe measuring up to 6.3 cm and in t he right lobe measuring up to 10.3 cm. Further appropriate contrast-enhanced CT and/or MRI evaluation is recommended. 2. No gallstones or biliary ductal dilatation. 3. Suspect horseshoe kidney.
[2022-10-01] MEDS ORDERED: NALOXONE 0.4 MG/ML 1 ML VIAL IV PRN (13:54)
[2022-10-01] MEDS ORDERED: ACETAMINOPHEN TAB 325 MG TAB PO PRN (13:54)
[2022-10-01] MEDS ORDERED: SODIUM CHLORIDE 0.9% 1,000 ML IV SCH (14:00)
--- NOTE | 2022-10-01 15:26 | P.HPIM ---
History of Present Illness This is a pleasant 66 years old male with multiple medical problems including atrial fibrillation note on blood thinner, anxiety, depression and bipolar, diabetes mellitus, hypertension, hypothyroidism, COPD, hyperlipidemia Patient states he presents because of pain in his stomach for the last 2 months and he lost about 20 pounds. He has poor appetite but no vomiting. His stool is very pale and has a picture and his cellular phone about it and showing it He felt sometimes very dizzy and headache but not now. He denies weakness or numbness. No chest pain or dyspnea. No coughing. No weakness or numbness or confusion He has sometimes difficulty with urination Patient states that he had colonoscopy about 5 years ago which was unremarkable for mass as per patient only If he is depressed but he denies suicidal ideation or homicidal ideation or hallucination or delusions. Patient's tears about his family. Vitals are stable Labs showing mild anemia with hemoglobin 12.3, INR is 1.3. BNP and liver enzymes are unremarkable. Bilirubin is normal 1.0. Troponin is negative. Magnesium was low 1.1. Lactic acid within the reference range at 1.8 EKG showing atrial paced rhythm with no significant ST-T changes Chest x-ray: No acute process Gallbladder ultrasound: There be a solid masses within the liver, and the left lobe measuring up to 6.3 cm and the right lobe measuring up to 10.3 cm, recommended CT and/or MRI revealed no gallstones, no biliary ductal dilatation Patient received normal saline and emergency room and admitted Review of Systems Review of systems CONSTITUTIONAL: No fever, no malaise, no fatigue. HEENT: No recent visual problems or hearing problems. Denied any sore throat. CARDIOVASCULAR: No orthopnea, PND, no palpitations, no syncope. PULMONARY: No shortness of breath, no cough, no hemoptysis. GASTROINTESTINAL: No diarrhea, no nausea, no vomiting, . Normoactive bowel sounds. NEUROLOGICAL: No headaches, no weakness, no numbness. HEMATOLOGICAL: Denies any bleeding or petechiae. GENITOURINARY: Denies any burning micturition, frequency, or urgency. MUSCULOSKELETAL/RHEUMATOLOGICAL: Denies any joint pain, swelling, or any muscle pain. ENDOCRINE: Denies any polyuria or polydipsia. Past Medical History Past Medical History: Atrial Fibrillation, Coronary Artery Disease (CAD), COPD, Diabetes Mellitus, Hyperlipidemia, Hypertension, Myocardial Infarction ([place]), Thyroid Disorder Additional Past Medical History / Comment(s): [place] 2019, hypothyroid Last Myocardial Infarction Date:: 2019 History of Any Multi-Drug Resistant Organisms: None Reported Past Surgical History: No Surgical Hx Reported Additional Past Surgical History / Comment(s): pacemaker insertion Past Anesthesia/Blood Transfusion Reactions: No Reported Reaction Past Psychological History: Anxiety, Bipolar, Depression Smoking Status: Former smoker, Vaper Past Alcohol Use History: None Reported Past Drug Use History: None Reported - Past Family History Father Family Medical History: Cancer, COPD, Hearing Disorder / Deafness Mother Family Medical History: COPD Medications and Allergies Home Medications Medication Instructions Recorded Confirmed Type Diltiazem Cd [Cardizem CD] 180 mg PO DAILY 07/14/21 10/01/22 History Docusate [Colace] 100 mg PO BID 07/14/21 10/01/22 History Levothyroxine Sodium [Synthroid] 75 mcg PO DAILY 07/14/21 10/01/22 History Losartan Potassium 100 mg PO DAILY 07/14/21 10/01/22 History QUEtiapine [SEROquel] 400 mg PO HS 07/14/21 10/01/22 History buPROPion HCL [Wellbutrin XL] 300 mg PO DAILY 07/14/21 10/01/22 History buPROPion XL [Wellbutrin XL] 150 mg PO DAILY 07/14/21 10/01/22 History carBAMazepine [TEGretol] 400 mg PO BID 07/14/21 10/01/22 History clonazePAM [KlonoPIN] 1 mg PO TID 07/14/21 10/01/22 History Venlafaxine HCl [Effexor] 100 mg PO TID 07/15/21 10/01/22 History metFORMIN HCL [Glucophage] 1,000 mg PO BID #60 tab 07/17/21 10/01/22 Rx Butalbital/Acetaminophen 50-325mg 1 tab PO BID PRN 10/01/22 10/01/22 History Fenugreek Seed 1 cap PO BID 10/01/22 10/01/22 History Insulin Aspart Prot/Insuln Asp 1 - 15 units SQ AC-BID PRN 10/01/22 10/01/22 History [Relion Novolog 70-30 Flexpen] Relaxium-Sleep Otc 2 cap PO HS 10/01/22 10/01/22 History Allergies Allergy/AdvReac Type Severity Reaction Status Date / Time Penicillins Allergy Unknown Verified 10/01/22 12:04 Physical Exam Vitals: Vital Signs Temp Pulse Resp BP Pulse Ox 10/01/22 12:35 60 16 111/73 94 L 10/01/22 10:25 97.8 F 62 20 116/66 97 Intake and Output 09/30/22 10/01/22 10/01/22 22:59 06:59 14:59 Other: Weight 77.111 kg GENERAL: The patient is alert and oriented x3, not in any acute distress. Well developed, well nourished. HEENT: Pupils are round and equally reacting to light. EOMI. No scleral icterus. No conjunctival pallor. Normocephalic, atraumatic. No pharyngeal erythema. No thyromegaly. CARDIOVASCULAR: S1 and S2 present. No murmurs, rubs, or gallops. PULMONARY: Chest is clear to auscultation, no wheezing or crackles. -ABDOMEN: Soft, mild RUQ tenderness, no rebound tenderness or guarding , normoactive bowel sounds. No palpable organomegaly. MUSCULOSKELETAL: No joint swelling or deformity. EXTREMITIES: No cyanosis, clubbing, or pedal edema. NEUROLOGICAL: Gross neurological examination did not reveal any focal deficits. SKIN: No rashes. no petechiae. Mild right upper quadrant tenderness with no guarding or rebound tenderness Results CBC & Chem 7: 10/01/22 11:00 10/01/22 11:00 Labs: Abnormal Lab Results - Last 24 Hours (Table) 10/01/22 10/01/22 10/01/22 Range/Units 11:00 11:00 11:00 RBC 3.71 L (4.30-5.90) m/uL Hgb 12.3 L (13.0-17.5) gm/dL Hct 36.8 L (39.0-53.0) % Lymphocytes # 0.8 L (1.0-4.8) k/uL PT 13.1 H (9.0-12.0) sec INR 1.3 H (<1.2) Carbon Dioxide 20 L (22-30) mmol/L Glucose 152 H (74-99) mg/dL Magnesium 1.1 L (1.6-2.3) mg/dL AST 66 H (17-59) U/L Alkaline Phosphatase 135 H (38-126) U/L Assessment and Plan Assessment: Multiple liver masses, largest on the left side 6.3 cm wound on the right side 10.3 cm moderate calories protein malnutrition Diabetes mellitus Hypertension Hyperlipidemia Chronic atrial fibrillation COPD: Acute exacerbation Hypothyroidism History of Anxiety, Bipolar, Depression Plan: Continue with gentle hydration GI team consult Oncology consult for further evaluation Dietitian consult Consult urine analysis Labs and medication were reviewed.. Continue same treatment. Continue with symptomatic treatment. Resume home medication. Monitor labs and vitals. DVT and GI prophylaxis. Further recommendations as per clinical course of the patient DVT prophylaxis: Subcutaneous heparin GI Prophylaxis: Pepcid PT/OT: Pending Prognosis is guarded
[2022-10-01] MEDS: DEXTROSE 5%-0.9% NACL 1,000 ML IV SCH (16:14)
[2022-10-01 16:50] LABS: Appearance,Urine Clear (Clear); Bilirubin,Urine Negative (Negative); Blood,Urine Negative (Negative); Color,Urine Yellow; Glucose,Urine (UA) Negative (Negative); Hyaline Casts,Urine 4 /lpf (0-2); Ketones,Urine Negative (Negative); Leukocyte Esterase,Urine Negative (Negative); Mucus,Urine Rare /hpf; Nitrite,Urine Negative (Negative); PH, Urine 5.5 (5.0-8.0); Protein,Urine 1+ (Negative); RBC,Urine <1 /hpf (0-5); Specific Gravity,Urine 1.014 (1.001-1.035); Urobilinogen,Urine <2.0 mg/dL (<2.0); WBC,Urine 1 /hpf (0-5)
[2022-10-01 21:11] LABS: Glucose,Whole Blood 121 mg/dL (70-110)
[2022-10-01] MEDS ORDERED: clonazePAM 0.5 MG TAB PO STA (21:13)
[2022-10-01] MEDS ORDERED: carBAMazepine 200 MG TAB PO STA (21:14)
[2022-10-01] MEDS ORDERED: QUEtiapine 400 MG TAB PO STA (21:15)
[2022-10-01] MEDS ORDERED: VENLAFAXINE HCL 50 MG TAB PO STA (21:15)
[2022-10-02] MEDS: LEVOTHYROXINE 75 MCG TAB PO SCH (06:08)
[2022-10-02] MEDS: DEXTROSE 5%-0.9% NACL 1,000 ML IV SCH ×2 (06:08→20:53)
[2022-10-02] MEDS ORDERED: IOPAMIDOL CONTRAST (ORAL USE) VIAL PO PRN (08:12)
[2022-10-02 10:59] LABS: HCT 31.4 % (39.6-50.0); HGB 9.9 g/dL (13.0-17.0); MCH 31.4 pg (27.0-32.0); MCHC 31.5 g/dL (32.0-37.0); MCV 99.7 fL (80.0-97.0); Mean Platelet Volume 10.5 fL (9.5-12.2); NRBC Per 100 WBC 0 /100 WBCS (0.0-0.0); Platelet Count 183 X 10*3/uL (140-440); RBC 3.15 X 10*6/uL (4.40-5.60); RDW 13.1 % (11.5-14.5); WBC 5.54 X 10*3/uL (4.50-10.00)
--- NOTE | 2022-10-02 11:25 | CT ---
EXAMINATION TYPE: CT abdomen wo/w con CT DLP: 1359.00 mGycm, Automated exposure control for dose reduction was used. DATE OF EXAM: 10/02/2022 10:59 AM COMPARISON: Gallbladder ultrasound 10/01/2022. CLINICAL INDICATION:Male, 66 years old with history of Liver mass seen on ultrasound, 20 pound weight los; liver mass found on US, 20lb weight loss TECHNIQUE: Multiphase CT of the abdomen before and after the administration of 100 cc of Isovue 300 IV contrast material and oral contrast. Coronal and sagittal reformats were performed. FINDINGS: LOWER CHEST: Linear scarring and/or atelectasis within the lung bases. Partial visualization of cardi ac pacemaking leads. ABDOMEN LIVER: There are at least 3 ill-defined hypoattenuating bilobar hepatic lesions identified. One measu res 6.8 cm is demonstrated within segment 3 (series 9, image 33). The other 2 are demonstrated within segment 7 measuring 6.0 cm (series 9, image 25) and segment 6/7 measuring up to 10.4 cm (series 9, i mage 34). GALLBLADDER AND BILE DUCTS: Contracted gallbladder. No biliary ductal dilatation. PANCREAS: Subtle ill-defined hypoattenuating region within the pancreatic head/neck measuring up to 1 .9 cm (series 9, image 43). No pancreatic ductal dilatation or parenchymal calcifications. No surroun ding fluid collection. SPLEEN: Unremarkable. ADRENAL GLANDS: Unremarkable. KIDNEYS AND URETERS: Horseshoe kidney identified. No renal calculi or focal lesion identified. Mild r ight hydronephrosis. Contrast is demonstrated within both collecting systems on the delayed phase. STOMACH AND BOWEL: Stomach and duodenum are unremarkable no focal wall thickening or surrounding infl ammatory changes within the visualized bowel Enteric contrast reaches the mid small bowel. No evidenc e of bowel obstruction. PERITONEUM: No evidence of pneumoperitoneum or free fluid. VASCULATURE: Mild atherosclerotic calcifications are present throughout the abdominal aorta and its b ranches. No evidence of aortic aneurysm. MUSCULOSKELETAL: No acute osseous abnormalities. No aggressive osseous lesion. LYMPH NODES: No gross evidence for lymphadenopathy. SOFT TISSUE/ABDOMINAL WALL: Neurostimulator device power pack identified within the anterior left abd ominal soft tissues. IMPRESSION: 1. There are patent least 3 large hypoattenuating ill-defined bilobar hepatic lesions favored to rep resent metastasis. 2. Subtle 1.9 cm ill-defined hypodense nonspecific region within the pancreatic head/neck. Etiologies include pancreatic adenocarcinoma due to findings #1 versus other. Further evaluation with MR abdome n with and without IV contrast ( pancreatic mass protocol). 3. Horseshoe kidney with mild right hydronephrosis. No obstructing calculus identified.
[2022-10-02 11:32] LABS: African American GFR (CKD) 91.8 (60.0-200.0); Albumin 3.6 g/dL (3.8-4.9); Albumin/Globulin Ratio 1.57 (1.60-3.17); Anion Gap 12.3 mmol/L (10.00-18.00); BUN/Creat Ratio 18.8 Ratio (12.00-20.00); Blood Urea Nitrogen 18.8 mg/dL (9.0-27.0); Calcium 8.4 mg/dL (8.7-10.3); Carbon Dioxide 22.7 mmol/L (20.0-27.5); Globulin 2.3 g/dL (1.6-3.3); Non-African American GFR(CKD) 79.2 (60.0-200.0); Potassium 3.9 mmol/L (3.5-5.5); Total Bilirubin 0.4 mg/dL (0.30-1.20); Total Protein 5.9 g/dL (6.2-8.2)
--- NOTE | 2022-10-02 12:46 | P.CONS ---
History of Present Illness - Reason for Consult Consult date: 10/02/22 Liver mass Requesting physician: Alex E Sheet - Chief Complaint Weakness and Unintentional weight loss - History of Present Illness This is a pleasant 66-year-old male with a past medical history of atrial fibrillation, coronary artery disease, COPD, diabetes mellitus, hyperlipidemia, hypertension,, anxiety and depression, former smoker and hypothyroidism presented to the emergency department for complaints of increased weakness and unintentional weight loss of 20 pounds over last 1-2 months duration. Patient states that it has been hard to breathe due to right-sided pain with breathing. He stated he's had some nausea but no vomiting. He's had a decreased appetite. States bowel movements have been normal but stools have been white. Vascular colonoscopy about 5 years ago done at [facility] which he reports as normal. Patient does have a pain pump present as well as pacemaker. Ultrasound of the abdomen was performed in the emergency department with findings of multiple liver masses with left lobe measuring up to 6.3 cm and right lobe measuring up to 10.3 cm. No gallstones or biliary ductal dilation noted. He denies any previous history of liver disease. WBC 5.5 hemoglobin 9.9 hematocrit 31 platelet count 183 INR 1.3 sodium 139 potassium 3.9 BUN 18 any creatinine 1.0 magnesium 1.1 total bilirubin 0.4 AST 66 ALT 20 alkaline phosp hatase 1:30 AFP tumor marker is less than 1.8 Review of Systems REVIEW OF SYSTEMS: CARDIOPULMONARY: No chest pain or shortness of breath. Gastrointestinal: Right upper quadrant pain with breathing. Nausea with no vomiting. No hematemesis, coffee-ground emesis. No rectal bleeding, or melena. Normal pattern of bowel movements with white stool. GENITOURINARY: No dysuria or hematuria. MUSCULOSKELETAL: Reports normal range of motion. SKIN: No rashes. No jaundice. ENDOCRINE: No chills, fevers. No excessive weight gain. No polydipsia or polyuria. PSYCHIATRIC: Unremarkable. NEUROLOGY: No change in mental status. Denies dizziness, headache. ENT: Vision unremarkable. CONSTITUTIONAL: Decreased appetite, weakness, unintentional weight loss 20 pounds in the last 1-2 months. No fever, chills, night sweats. Past Medical History Past Medical History: Atrial Fibrillation, Coronary Artery Disease (CAD), COPD, Diabetes Mellitus, Hyperlipidemia, Hypertension, Myocardial Infarction ([place]), Thyroid Disorder Additional Past Medical History / Comment(s): [place] 2019, hypothyroid Last Myocardial Infarction Date:: 2018 History of Any Multi-Drug Resistant Organisms: None Reported Past Surgical History: Joint Replacement, Pacemaker Additional Past Surgical History / Comment(s): pacemaker insertion, pain pump, left hip replacement Past Anesthesia/Blood Transfusion Reactions: No Reported Reaction Type of Cardiac Device: Permanent Pacemaker Device Placement Date:: 2018 Past Psychological History: Anxiety, Bipolar, Depression Smoking Status: Former smoker, Vaper Past Alcohol Use History: None Reported Past Drug Use History: None Reported - Past Family History Father Family Medical History: Cancer, COPD, Hearing Disorder / Deafness Mother Family Medical History: COPD Medications and Allergies Home Medications Medication Instructions Recorded Confirmed Type Diltiazem Cd [Cardizem CD] 180 mg PO DAILY 07/14/21 10/01/22 History Docusate [Colace] 100 mg PO BID 07/14/21 10/01/22 History Levothyroxine Sodium [Synthroid] 75 mcg PO DAILY 07/14/21 10/01/22 History Losartan Potassium 100 mg PO DAILY 07/14/21 10/01/22 History QUEtiapine [SEROquel] 400 mg PO HS 07/14/21 10/01/22 History buPROPion HCL [Wellbutrin XL] 300 mg PO DAILY 07/14/21 10/01/22 History buPROPion XL [Wellbutrin XL] 150 mg PO DAILY 07/14/21 10/01/22 History carBAMazepine [TEGretol] 400 mg PO BID 07/14/21 10/01/22 History clonazePAM [KlonoPIN] 1 mg PO TID 07/14/21 10/01/22 History Venlafaxine HCl [Effexor] 100 mg PO TID 07/15/21 10/01/22 History metFORMIN HCL [Glucophage] 1,000 mg PO BID #60 tab 07/17/21 10/01/22 Rx Butalbital/Acetaminophen 50-325mg 1 tab PO BID PRN 10/01/22 10/01/22 History Fenugreek Seed 1 cap PO BID 10/01/22 10/01/22 History Insulin Aspart Prot/Insuln Asp 1 - 15 units SQ AC-BID PRN 10/01/22 10/01/22 History [Relion Novolog 70-30 Flexpen] Relaxium-Sleep Otc 2 cap PO HS 10/01/22 10/01/22 History Allergies Allergy/AdvReac Type Severity Reaction Status Date / Time Penicillins Allergy Unknown Verified 10/01/22 12:04 Physical Exam Vitals: Vital Signs Temp Pulse Pulse Resp BP BP Pulse Ox 10/02/22 08:04 97 10/02/22 07:00 97.4 F L 59 L 17 96/55 97 10/02/22 02:00 98.9 F 60 16 91/57 91 L 10/01/22 21:45 99.5 F 60 18 114/70 96 10/01/22 20:45 99.2 F 60 16 117/73 96 10/01/22 20:00 18 10/01/22 19:00 61 18 126/81 96 10/01/22 16:13 60 18 112/72 96 10/01/22 12:35 60 16 111/73 94 L 10/01/22 10:25 97.8 F 62 20 116/66 97 Intake and Output 10/01/22 10/02/22 10/02/22 22:59 06:59 14:59 Other: Voiding Method Toilet Urinal Weight 77.111 kg General appearance: The patient is alert, oriented, appears in no acute distress. HET: Head is normocephalic and atraumatic. Conjunctiva pink. Sclera anicteric. Neck: Supple without lymphadenopathy. Trachea midline. Heart: S1 S2. Regular rate and rhythm. Lungs: Clear to auscultation. Abdomen: Soft, thin, right upper quadrant tenderness, hepatomegaly, nondistended with bowel sounds. No guarding or rigidity. Skin: No rashes. No jaundice. Extremities: Normal skin color and turgor. No pedal edema. Neurological: No focal deficits. Alert and oriented x3. Results CBC & Chem 7: 10/02/22 07:15 10/02/22 07:15 Labs: Abnormal Lab Results - Last 24 Hours (Table) 10/01/22 10/01/22 10/01/22 Range/Units 11:00 11:00 11:00 RBC 3.71 L (4.30-5.90) m/uL Hgb 12.3 L (13.0-17.5) gm/dL Hct 36.8 L (39.0-53.0) % Lymphocytes # 0.8 L (1.0-4.8) k/uL PT 13.1 H (9.0-12.0) sec INR 1.3 H (<1.2) Carbon Dioxide (22-30) mmol/L Glucose (74-99) mg/dL POC Glucose (mg/dL) (70-110) mg/dL Magnesium (1.6-2.3) mg/dL AST (17-59) U/L Alkaline Phosphatase (38-126) U/L Urine Protein 1+ H (Negative) Hyaline Casts 4 H (0-2) /lpf Urine Mucus Rare H (None) /hpf 10/01/22 10/01/22 Range/Units 11:00 21:10 RBC (4.30-5.90) m/uL Hgb (13.0-17.5) gm/dL Hct (39.0-53.0) % Lymphocytes # (1.0-4.8) k/uL PT (9.0-12.0) sec INR (<1.2) Carbon Dioxide 20 L (22-30) mmol/L Glucose 152 H (74-99) mg/dL POC Glucose (mg/dL) 121 H (70-110) mg/dL Magnesium 1.1 L (1.6-2.3) mg/dL AST 66 H (17-59) U/L Alkaline Phosphatase 135 H (38-126) U/L Urine Protein (Negative) Hyaline Casts (0-2) /lpf Urine Mucus (None) /hpf Assessment and Plan (1) Liver mass Narrative/Plan: 66-year-old male who presented for weakness and weight loss of 20 pounds over the last 1-2 months with complaints of right upper quadrant pain especially with breathing underwent ultrasound findings of multiple solid liver masses. No previous history of liver disease. Last colonoscopy 5 years ago but she states was normal. Will order further labs including AFP, CA-19-9 ans CEA as well as CT abdomen, as patient has pacemaker and pain pump neck compatible with MRI. Current Visit: Yes Status: Acute Code(s): R16.0 - HEPATOMEGALY, NOT ELS EWHERE CLASSIFIED SNOMED Code(s): 628775898 (2) Unintentional weight loss Current Visit: Yes Status: Acute Code(s): R63.4 - ABNORMAL WEIGHT LOSS SNOMED Code(s): 248900322 (3) Weakness Current Visit: Yes Status: Acute Code(s): R53.1 - WEAKNESS SNOMED Code(s): 16853159 (4) Hypomagnesemia Current Visit: Yes Status: Acute Code(s): E83.42 - HYPOMAGNESEMIA SNOMED Code(s): 765752261 Plan: 1. Continue symptomatic and supportive care 2. Diet as tolerated 3. AFP tumor marker, CA-19-[address] abdomen with contrast ordered for liver protocol. Patient not candidate for MRI due to pain pump and pacemaker 5. Await further recommendations from oncology 6. Replacement knee exam per protocol Thank you for this consultation, we will continue to follow. Dr. Esteban Sahu I agree with the dictator's note, documented as a scribe by Leslie Simeon.
[2022-10-02 12:55] VITALS: BMI 24.3
[2022-10-02] MEDS ORDERED: RX INFO: IV CONTRAST WAS GIVEN 1 EACH MISC MISCELLANE PRN (13:30)
[2022-10-02 14:07] LABS: Cancer Antigen 19-9 15.6 U/mL (0.0-34.9); Carcinoembryonic Antigen 31.2 ng/mL (0.0-4.9)
--- NOTE | 2022-10-02 16:17 | P.CONS ---
History of Present Illness - Reason for Consult Consult date: 10/02/22 liver mass Requesting physician: Alex E Sheet - Chief Complaint abdominal pain/weakness - History of Present Illness Patient is a 66-year-old male who presented to the emergency room for upper abdominal pain, generalized weakness and 20 pound unintentional weight loss over the last 1 month. We were consulted due to liver mass found on ultrasound. Patient reports abdominal pain is epigastric and right upper quadrant in nature with associated nausea. Patient denies vomiting and diarrhea. Patient also reports decreased appetite with 20 pound weight loss over the last 1 month. He also reports white stools and dark colored urine. Patient reports history of smoking -06/09 packs a day for approximately 10 years and quit 6 months ago. Patient has no personal history of cancer but father had pancreatic cancer. Upon presentation to the ER ultrasound of the gallbladder revealed solid masses within the liver. The left lobe measuring up to 6.3 cm and the right lip right lobe measuring up to 10.[address] abdomen and pelvis revealed 3 large hypo- attenuating ill-defined bilobar hepatic lesions favored to represent metastasis. Subtle 1.9 cm ill-defined hypodense nonspecific lesion within the pancreatic head/neck. Horseshoe kidney with mild right hydronephrosis. No obstructing calculus identified. hemoglobin 12.3, WBC 8.6, platelets 256,000. ALP 135, AST 66, ALP 22, bilirubin 1.0. Review of Systems 10 point ROS is negative except as stated in the HPI Past Medical History Past Medical History: Atrial Fibrillation, Coronary Artery Disease (CAD), COPD, Diabetes Mellitus, Hyperlipidemia, Hypertension, Myocardial Infarction (NM), Thyroid Disorder Additional Past Medical History / Comment(s): NM 2019, hypothyroid Last Myocardial Infarction Date:: 2019 History of Any Multi-Drug Resistant Organisms: None Reported Past Surgical History: Joint Replacement, Pacemaker Additional Past Surgical History / Comment(s): pacemaker insertion, pain pump, left hip replacement Past Anesthesia/Blood Transfusion Reactions: No Reported Reaction Type of Cardiac Device: Permanent Pacemaker Device Placement Date:: 2018 Past Psychological History: Anxiety, Bipolar, Depression Smoking Status: Former smoker, Vaper Past Alcohol Use History: None Reported Past Drug Use History: None Reported - Past Family History Father Family Medical History: Cancer, COPD, Hearing Disorder / Deafness Mother Family Medical History: COPD Medications and Allergies Home Medications Medication Instructions Recorded Confirmed Type Diltiazem Cd [Cardizem CD] 180 mg PO DAILY 07/14/21 10/01/22 History Docusate [Colace] 100 mg PO BID 07/14/21 10/01/22 History Levothyroxine Sodium [Synthroid] 75 mcg PO DAILY 07/14/21 10/01/22 History Losartan Potassium 100 mg PO DAILY 07/14/21 10/01/22 History QUEtiapine [SEROquel] 400 mg PO HS 07/14/21 10/01/22 History buPROPion HCL [Wellbutrin XL] 300 mg PO DAILY 07/14/21 10/01/22 History buPROPion XL [Wellbutrin XL] 150 mg PO DAILY 07/14/21 10/01/22 History carBAMazepine [TEGretol] 400 mg PO BID 07/14/21 10/01/22 History clonazePAM [KlonoPIN] 1 mg PO TID 07/14/21 10/01/22 History Venlafaxine HCl [Effexor] 100 mg PO TID 07/15/21 10/01/22 History metFORMIN HCL [Glucophage] 1,000 mg PO BID #60 tab 07/17/21 10/01/22 Rx Butalbital/Acetaminophen 50-325mg 1 tab PO BID PRN 10/01/22 10/01/22 History Fenugreek Seed 1 cap PO BID 10/01/22 10/01/22 History Insulin Aspart Prot/Insuln Asp 1 - 15 units SQ AC-BID PRN 10/01/22 10/01/22 History [Relion Novolog 70-30 Flexpen] Relaxium-Sleep Otc 2 cap PO HS 10/01/22 10/01/22 History Allergies Allergy/AdvReac Type Severity Reaction Status Date / Time Penicillins Allergy Unknown Verified 10/01/22 12:04 Physical Exam Vitals: Vital Signs Temp Pulse Pulse Resp BP BP Pulse Ox 10/02/22 12:15 98.3 F 60 17 134/77 98 10/02/22 08:04 97 10/02/22 07:00 97.4 F L 59 L 17 96/55 97 10/02/22 02:00 98.9 F 60 16 91/57 91 L 10/01/22 21:45 99.5 F 60 18 114/70 96 10/01/22 20:45 99.2 F 60 16 117/73 96 10/01/22 20:00 18 10/01/22 19:00 61 18 126/81 96 10/01/22 16:13 60 18 112/72 96 Intake and Output 10/02/22 10/02/22 10/02/22 06:59 14:59 22:59 Output Total 650 Balance -650 Output: Urine 650 Other: Voiding Method Toilet Urinal Weight 77.111 kg - Constitutional General appearance: average body habitus, no acute distress - EENT Eyes: anicteric sclerae, EOMI ENT: hearing grossly normal - Respiratory Respiratory: bilateral: CTA - Cardiovascular Rhythm: regular Heart sounds: normal: S1, S2 Abnormal Heart Sounds: no systolic murmur, no diastolic murmur, no rub, no S3 Gallop, no S4 Gallop, no click, no other - Gastrointestinal General gastrointestinal: soft, tenderness Localized gastrointestinal: tender: RUQ - Integumentary Integumentary: cyanotic, no rash - Neurologic grossly intact - Musculoskeletal Musculoskeletal: strength equal bilaterally - Psychiatric Psychiatric: A&O x's 3, appropriate affect, intact judgment & insight Results CBC & Chem 7: 10/02/22 07:15 10/02/22 07:15 Labs: Abnormal Lab Results - Last 24 Hours (Table) 10/01/22 10/01/22 10/02/22 Range/Units 11:00 21:10 07:15 RBC 3.15 L (4.40-5.60) X 10*6/uL Hgb 9.9 L (13.0-17.0) g/dL Hct 31.4 L (39.6-50.0) % MCV 99.7 H (80.0-97.0) fL MCHC 31.5 L (32.0-37.0) g/dL POC Glucose (mg/dL) 121 H (70-110) mg/dL Calcium (8.7-10.3) mg/dL AST (14-35) U/L Alkaline Phosphatase (41-126) U/L Total Protein (6.2-8.2) g/dL Albumin (3.8-4.9) g/dL Albumin/Globulin Ratio (1.60-3.17) g/dL Carcinoembryonic Ag (0.0-4.9) ng/mL Urine Protein 1+ H (Negative) Hyaline Casts 4 H (0-2) /lpf Urine Mucus Rare H (None) /hpf 10/02/22 10/02/22 Range/Units 07:15 07:15 RBC (4.40-5.60) X 10*6/uL Hgb (13.0-17.0) g/dL Hct (39.6-50.0) % MCV (80.0-97.0) fL MCHC (32.0-37.0) g/dL POC Glucose (mg/dL) (70-110) mg/dL Calcium 8.4 L (8.7-10.3) mg/dL AST 66 H (14-35) U/L Alkaline Phosphatase 130 H (41-126) U/L Total Protein 5.9 L (6.2-8.2) g/dL Albumin 3.6 L (3.8-4.9) g/dL Albumin/Globulin Ratio 1.57 L (1.60-3.17) g/dL Carcinoembryonic Ag 31.2 H (0.0-4.9) ng/mL Urine Protein (Negative) Hyaline Casts (0-2) /lpf Urine Mucus (None) /hpf Comments: ultrasound gallbladder reviewed CT scan - abdomen: report reviewed Assessment and Plan (1) Liver mass Current Visit: Yes Status: Acute Priority: High Code(s): R16.0 - HEPATOMEGALY, NOT ELSEWHERE CLASSIFIED SNOMED Code(s): 142529170 Plan: Liver mass: -Gallbladder ultrasound revealed solid masses within the liver. The left lobe measuring up to 6.3 cm and the right lip right lobe measuring up to 10.[address] abdomen and pelvis revealed 3 large hypo-attenuating ill-defined bilobar hepatic lesions favored to represent metastasis. Subtle 1.9 cm ill-defined hypodense nonspecific lesion within the pancreatic head/neck. Horseshoe kidney with mild right hydronephrosis. No obstructing calculus identified. -Will obtain CT chest to r/o metastasis -IR consulted for liver biopsy -Pending biopsy results, will plan for NGS and PDL-1 testing Pt updated on plan of care and is agreeable to move forward with biopsy attests: I have performed H&P and developed impression and plan of care for patient, discussed with dictator. I reviewed dictated note, documented as a scribe
[2022-10-02] MEDS: clonazePAM 1 MG TAB PO SCH ×2 (16:47→20:54)
[2022-10-02] MEDS: VENLAFAXINE HCL 50 MG TAB PO SCH ×2 (17:25→20:54)
[2022-10-02] MEDS ORDERED: BUTALBITAL PO PRN (18:31)
[2022-10-02] MEDS ORDERED: ACETAMINOPHEN PO PRN (18:31)
[2022-10-02] MEDS ORDERED: ONDANSETRON 4 MG/2 ML VIAL IVP PRN (18:33)
[2022-10-02] MEDS ORDERED: Magnesium Replacement Protocol 1 EACH MISC MISCELLANE PRN (18:34)
[2022-10-02] MEDS: HYDROcodone/APAP 5-325MG 1 EACH TAB PO PRN (19:41)
[2022-10-02] MEDS: carBAMazepine 200 MG TAB PO SCH (20:54)
[2022-10-02] MEDS: DOCUSATE 100 MG CAP PO SCH (20:54)
[2022-10-02] MEDS: QUEtiapine 200 MG TAB PO SCH (20:54)
--- NOTE | 2022-10-02 20:54 | P.PN ---
Subjective Progress Note Date: 10/02/22 This is a pleasant 66 years old male with multiple medical problems including atrial fibrillation note on blood thinner, anxiety, depression and bipolar, diabetes mellitus, hypertension, hypothyroidism, COPD, hyperlipidemia Patient states he presents because of pain in his stomach for the last 2 months and he lost about 20 pounds. He has poor appetite but no vomiting. His stool is very pale and has a picture and his cellular phone about it and showing it He felt sometimes very dizzy and headache but not now. He denies weakness or numbness. No chest pain or dyspnea. No coughing. No weakness or numbness or confusion He has sometimes difficulty with urination Patient states that he had colonoscopy about 5 years ago which was unremarkable for mass as per patient only If he is depressed but he denies suicidal ideation or homicidal ideation or hallucination or delusions. Patient's tears about his family. Vitals are stable Labs showing mild anemia with hemoglobin 12.3, INR is 1.3. BNP and liver enzymes are unremarkable. Bilirubin is normal 1.0. Troponin is negative. Magnesium was low 1.1. Lactic acid within the reference range at 1.8 EKG showing atrial paced rhythm with no significant ST-T changes Chest x-ray: No acute process Gallbladder ultrasound: There be a solid masses within the liver, and the left lobe measuring up to 6.3 cm and the right lobe measuring up to 10.3 cm, francie mmended CT and/or MRI revealed no gallstones, no biliary ductal dilatation Patient received normal saline and emergency room and admitted 10/02/2022 Patient is seen and evaluated in follow-up and is currently awaiting to undergo CT abdomen and pelvis with GI following an oncology is placed on consulted and pending at this time. Patient does have continuous nausea and he reports has been on going for approximately one month. Patient denies vomiting and is tolerating oral intake. Patient does have chronic pain and has a pain pump of the spinal cord and is having some generalized abdominal pain. Patient reports to voiding with no difficulties although appears concentrated and patient is m ost likely somewhat dehydrated. Patient is afebrile with no reports of chest pain or shortness of breath noted. Review of systems: Constitutional: No reports of fatigue, fever, or chills Cardiovascular: No reports of chest pain or palpitations Respiratory: No reports of shortness of breath or cough GI: reports of nausea continuously and has been for over 2 months, no reports of vomiting, or diarrhea : No reports of dysuria or retention Neurovascular: reports of generalized weakness All medications have been reviewed Physical exam: GENERAL: The patient is alert and oriented x3, not in any acute distress. Thin built HEENT: Pupils are round and equally reacting to light. EOMI. No scleral icterus. No conjunctival pallor. Normocephalic, atraumatic. No pharyngeal erythema. No thyromegaly. CARDIOVASCULAR: S1 and S2 present. No murmurs, rubs, or gallops. PULMONARY: Chest is clear to auscultation, no wheezing or crackles. -ABDOMEN: Soft, mild RUQ tenderness, no rebound tenderness or guarding , normoactive bowel sounds. No palpable organomegaly. MUSCULOSKELETAL: No joint swelling or deformity. EXTREMITIES: No cyanosis, clubbing, or pedal edema. NEUROLOGICAL: Gross neurological examination did not reveal any focal deficits. SKIN: No rashes. no petechiae. Assessment: Multiple liver masses, largest on the left side 6.3 cm and also on the right side 10.3 cm, concerns for metastasis moderate calories protein malnutrition Diabetes mellitus Hypertension Hyperlipidemia Chronic atrial fibrillation COPD: Acute exacerbation Hypothyroidism History of Anxiety, Bipolar, Depression GI prophylaxis DVT prophylaxis Full code Plan: Recommend continue with gentle IV hydration and will resume home medications GI evaluated the patient recommending CT abdomen and pelvis which is currently pending Oncology team consulted recommending liver biopsy and consult to interventional radiology for this and patient is agreeable Encouraged increased activity as tolerated Recommend follow-up labs Overall prognosis is guarded The impression and plan of care has been dictated by Tasha Childs, Nurse Practitioner as directed. Dr. Eve MD I have performed a history and examination and MDM of this patient, discussed the same with the dictator, and agree with the dictator's assessment and plan as written ,documented as a scribe. Based on total visit time, I have performed more than 50% of the visit. Objective - Vital Signs Vital signs: Vital Signs Temp 97.4 F L 10/02/22 07:00 Pulse 59 L 10/02/22 07:00 Resp 17 10/02/22 07:00 BP 96/55 10/02/22 07:00 Pulse Ox 97 10/02/22 08:04 FiO2 Intake & Output 10/01/22 10/02/22 10/02/22 18:59 06:59 18:59 Weight 77.111 kg Other: Voiding Method Toilet Toilet Urinal Urinal - Labs CBC & Chem 7: 10/02/22 07:15 10/02/22 07:15 Labs: Abnormal Lab Results - Last 24 Hours (Table) 10/01/22 10/01/22 10/01/22 Range/Units 11:00 11:00 11:00 RBC 3.71 L (4.30-5.90) m/uL Hgb 12.3 L (13.0-17.5) gm/dL Hct 36.8 L (39.0-53.0) % Lymphocytes # 0.8 L (1.0-4.8) k/uL PT 13.1 H (9.0-12.0) sec INR 1.3 H (<1.2) Carbon Dioxide (22-30) mmol/L Glucose (74-99) mg/dL POC Glucose (mg/dL) (70-110) mg/dL Magnesium (1.6-2.3) mg/dL AST (17-59) U/L Alkaline Phosphatase (38-126) U/L Urine Protein 1+ H (Negative) Hyaline Casts 4 H (0-2) /lpf Urine Mucus Rare H (None) /hpf 10/01/22 10/01/22 Range/Units 11:00 21:10 RBC (4.30-5.90) m/uL Hgb (13.0-17.5) gm/dL Hct (39.0-53.0) % Lymphocytes # (1.0-4.8) k/uL PT (9.0-12.0) sec INR (<1.2) Carbon Dioxide 20 L (22-30) mmol/L Glucose 152 H (74-99) mg/dL POC Glucose (mg/dL) 121 H (70-110) mg/dL Magnesium 1.1 L (1.6-2.3) mg/dL AST 66 H (17-59) U/L Alkaline Phosphatase 135 H (38-126) U/L Urine Protein (Negative) Hyaline Casts (0-2) /lpf Urine Mucus (None) /hpf
[2022-10-02] MEDS ORDERED: DEXTROSE 50% SYRINGE 50 ML IVP PRN ×2 (20:55)
[2022-10-02] MEDS ORDERED: [UNRECOGNIZED DRUG - OTHER] PO SCH (21:00)
[2022-10-02] MEDS: INSULIN ASPART (NovoLOG) 100 UNIT/ML VIAL SQ SCH (23:04)
[2022-10-02 23:08] LABS: Glucose,Whole Blood 100 mg/dL (70-110)
[2022-10-03] MEDS: MAGNESIUM SULFATE-D5W PMX 1 GM in DEXTROSE/WATER 1 100ML.BAG IVPB SCH ×3 (00:10→00:12)
[2022-10-03] MEDS: LEVOTHYROXINE 75 MCG TAB PO SCH (06:25)
[2022-10-03] MEDS: HYDROcodone/APAP 5-325MG 1 EACH TAB PO PRN ×4 (06:28→21:34)
[2022-10-03 07:04] LABS: Glucose,Whole Blood 103 mg/dL (70-110)
[2022-10-03] MEDS: INSULIN ASPART (NovoLOG) 100 UNIT/ML VIAL SQ SCH ×4 (07:52→21:30)
[2022-10-03] MEDS: buPROPion XL 300 MG TAB.ER.24H PO SCH (08:37)
[2022-10-03] MEDS: PANTOPRAZOLE 40 MG TABLET PO SCH (08:37)
[2022-10-03] MEDS: buPROPion XL 150 MG TAB.ER.24H PO SCH (08:37)
[2022-10-03] MEDS: LOSARTAN 50 MG TAB PO SCH (08:38)
[2022-10-03] MEDS: DOCUSATE 100 MG CAP PO SCH ×2 (08:38→21:29)
[2022-10-03] MEDS: clonazePAM 1 MG TAB PO SCH ×3 (08:38→21:30)
[2022-10-03] MEDS: carBAMazepine 200 MG TAB PO SCH ×2 (08:38→21:29)
[2022-10-03] MEDS: DILTIAZEM CD 180 MG CAP.ER.24H PO SCH (08:38)
[2022-10-03] MEDS: VENLAFAXINE HCL 50 MG TAB PO SCH ×3 (08:39→21:29)
--- NOTE | 2022-10-03 10:35 | P.PN ---
Subjective Progress Note Date: 10/03/22 Principal diagnosis: Liver mass This is a pleasant 66-year-old male with a past medical history of atrial fibrillation, coronary artery disease, COPD, diabetes mellitus, hyperlipidemia, hypertension,, anxiety and depression, former smoker and hypothyroidism presented to the emergency department for complaints of increased weakness and unintentional weight loss of 20 pounds over last 1-2 months duration. Patient states that it has been hard to breathe due to right-sided pain with breathing. He stated he's had some nausea but no vomiting. He's had a decreased appetite. States bowel movements have been normal but stools have been white. Vascular colonoscopy about 5 years ago done at [facility] which he reports as normal. Patient does have a pain pump present as well as pacemaker. Ultrasound of the abdomen was performed in the emergency department with findings of multiple liver masses with left lobe measuring up to 6.3 cm and right lobe measuring up to 10.3 cm. No gallstones or biliary ductal dilation noted. He denies any previous history of liver disease. WBC 5.5 hemoglobin 9.9 hematocrit 31 platelet count 183 INR 1.3 sodium 139 potassium 3.9 BUN 18 any creatinine 1.0 magnesium 1.1 total bilirubin 0.4 AST 66 ALT 20 alkaline phosphatase 1:30 AFP tumor marker is less than 1.8 10/03/2022: Patient seen and examined today as a follow-up. He states he is feeling a little bit better. He is trying to eat. He does state he continues to have right sided abdominal pain using pain medication as needed. Denies any nausea or vomiting. AFP tumor marker normal, CA-19-9 tumor marker normal CEA elevated at 31.2. Oncology following and has ordered a CT of the chest to rule out metastasis as well as interventional radiology biopsy of liver mass. Patient does mention today that his father had from pancreatic cancer. Objective - Vital Signs Vital signs: Vital Signs Temp 99.5 F 10/03/22 07:00 Pulse 59 L 10/03/22 07:00 Resp 17 10/03/22 07:00 BP 138/77 10/03/22 07:00 Pulse Ox 94 L 10/03/22 07:00 FiO2 Intake & Output 10/02/22 10/03/22 10/03/22 18:59 06:59 18:59 Intake Total 900 300 Output Total 1200 500 Balance -300 -200 Weight 77.111 kg Intake: Intake, IV Titration 900 Amount Dextrose 5%-0.9% NaCl 1, 900 000 ml @ 75 mls/hr IV . [id number] [facility] Rx#:[id number] Oral 300 Output: Urine 1200 500 Other: Voiding Method Toilet Toilet Toilet Urinal Urinal Urinal # Voids 1 - Exam General appearance: The patient is alert, oriented, appears in no acute distress. HET: Head is normocephalic and atraumatic. Conjunctiva pink. Sclera anicteric. Neck: Supple without lymphadenopathy. Abdomen: Soft, mild tenderness right upper quadrant, nondistended with bowel sounds. No guarding or rigidity. Extremities: Normal skin color and turgor. No pedal edema Skin: No rashes, no jaundice Neurological: No focal deficits. Alert and oriented. - Labs CBC & Chem 7: 10/03/22 05:59 10/03/22 05:59 Labs: Abnormal Lab Results - Last 24 Hours (Table) 10/02/22 10/02/22 10/02/22 Range/Units 07:15 07:15 07:15 RBC 3.15 L (4.40-5.60) X 10*6/uL Hgb 9.9 L (13.0-17.0) g/dL Hct 31.4 L (39.6-50.0) % MCV 99.7 H (80.0-97.0) fL MCHC 31.5 L (32.0-37.0) g/dL Calcium 8.4 L (8.7-10.3) mg/dL AST 66 H (14-35) U/L Alkaline Phosphatase 130 H (41-126) U/L Total Protein 5.9 L (6.2-8.2) g/dL Albumin 3.6 L (3.8-4.9) g/dL Albumin/Globulin Ratio 1.57 L (1.60-3.17) g/dL Carcinoembryonic Ag 31.2 H (0.0-4.9) ng/mL Assessment and Plan (1) Liver mass Narrative/Plan: 66-year-old male who presented for weakness and weight loss of 20 pounds over the last 1-2 months with complaints of right upper quadrant pain especially with breathing underwent ultrasound findings of multiple solid liver masses. No previous history of liver disease. Last colonoscopy 5 years ago but she states was normal. Will order further labs including AFP, CA-19-9 ans CEA as well as CT abdomen, as patient has pacemaker and pain pump neck compatible with MRI. Labs reviewed tumor markers negative CEA elevated at 31.4. Oncology following, patient to undergo CT of chest as well as consultation to interventional radiology for liver mass biopsy. Current Visit: Yes Status: Acute Priority: High Code(s): R16.0 - HEPATOMEGALY, NOT ELSEWHERE CLASSIFIED SNOMED Code(s): 582610885 (2) Unintentional weight loss Current Visit: Yes Status: Acute Code(s): R63.4 - ABNORMAL WEIGHT LOSS SNOMED Code(s): 745289161 (3) Weakness Current Visit: Yes Status: Acute Code(s): R53.1 - WEAKNESS SNOMED Code(s): 73718465 (4) Hypomagnesemia Current Visit: Yes Status: Acute Code(s): E83.42 - HYPOMAGNESEMIA SNOMED Code(s): 896487953 Plan: 1. Continue symptomatic and supportive care 2. Diet as tolerated 3. AFP tumor marker, CA-19-[address] 4[address] abdomen with contrast ordered for liver protocol. Patient not candidate for MRI due to pain pump and pacemaker 5. Patient scheduled for liver biopsy with interventional radiology 6. Continue with recommendations from oncology 7. No further workup indicated at this time from gastroenterology. Patient is cleared for discharge, to follow-up outpatient with oncology. Thank you for this consultation, we will continue to follow. Dr. Esteban Sahu I agree with the dictator's note, documented as a scribe by Leslie Simeon.
[2022-10-03 11:11] LABS: Basophils # (A) 0.01 X 10*3/uL (0.00-0.10); Basophils % (A) 0.2 %; Eosinophils # (A) 0.07 X 10*3/uL (0.04-0.35); Eosinophils % (A) 1.4 %; HGB 10.4 g/dL (13.0-17.0); Immature Grans, Automated 0.4 %; Lymphocytes # (A) 0.75 X 10*3/uL (0.90-5.00); Lymphocytes % (A) 14.8 %; MCH 32.3 pg (27.0-32.0); MCHC 32.5 g/dL (32.0-37.0); MCV 99.4 fL (80.0-97.0); Mean Platelet Volume 10.4 fL (9.5-12.2); Monocytes # (A) 0.59 X 10*3/uL (0.20-1.00); Monocytes % (A) 11.6 %; NRBC Per 100 WBC 0 /100 WBCS (0.0-0.0); Neutrophils # (A) 3.64 X 10*3/uL (1.80-7.70); Neutrophils % (A) 71.6 %; Platelet Count 209 X 10*3/uL (140-440); RBC 3.22 X 10*6/uL (4.40-5.60); WBC 5.08 X 10*3/uL (4.50-10.00)
[2022-10-03 11:13] LABS: Glucose,Whole Blood 147 mg/dL (70-110)
[2022-10-03 12:16] LABS: African American GFR (CKD) 95.2 (60.0-200.0); Anion Gap 12.2 mmol/L (10.00-18.00); BUN/Creat Ratio 14.54 Ratio (12.00-20.00); Blood Urea Nitrogen 14.1 mg/dL (9.0-27.0); Calcium 8.9 mg/dL (8.7-10.3); Carbon Dioxide 24.6 mmol/L (20.0-27.5); Magnesium 1.7 mg/dL (1.5-2.4); Non-African American GFR(CKD) 82.2 (60.0-200.0); Potassium 4.6 mmol/L (3.5-5.5)
[2022-10-03] MEDS ORDERED: MAGNESIUM SULFATE-D5W PMX 1 GM in DEXTROSE/WATER 1 100ML.BAG IVPB ONE (12:54)
--- NOTE | 2022-10-03 13:42 | P.PN ---
Subjective Progress Note Date: 10/03/22 Principal diagnosis: liver mass At today's visit patient is resting comfortably in bed. He reports improvement in abdominal pain. He denies nausea vomiting diarrhea. He is tolerating oral intake. No other reported complaints at this time Objective - Vital Signs Vital signs: Vital Signs Temp 98.9 F 10/03/22 11:40 Pulse 57 L 10/03/22 11:40 Resp 17 10/03/22 11:40 BP 116/69 10/03/22 11:40 Pulse Ox 96 10/03/22 11:40 FiO2 Intake & Output 10/02/22 10/03/22 10/03/22 18:59 06:59 18:59 Intake Total 900 300 Output Total 1200 500 Balance -300 -200 Weight 77.111 kg Intake: Intake, IV Titration 900 Amount Dextrose 5%-0.9% NaCl 1, 900 000 ml @ 75 mls/hr IV . [id number] Rx#:[id number] Oral 300 Output: Urine 1200 500 Other: Voiding Method Toilet Toilet Toilet Urinal Urinal Urinal # Voids 1 - Constitutional General appearance: Present: average body habitus, no acute distress - EENT Eyes: Present: anicteric sclerae, EOMI ENT: Present: hearing grossly normal - Respiratory Details: breathing is even and unlabored - Cardiovascular Details: skin warm and dry - Integumentary Integumentary: Absent: cyanotic, rash - Neurologic Neurologic: Present: CNII-XII intact - Musculoskeletal Musculoskeletal: Present: strength equal bilaterally - Psychiatric Psychiatric: Present: A&O x's 3, appropriate affect, intact judgment & insight - Labs CBC & Chem 7: 10/03/22 05:59 10/03/22 05:59 Labs: Abnormal Lab Results - Last 24 Hours (Table) 10/02/22 10/03/22 10/03/22 Range/Units 07:15 05:59 05:59 RBC 3.22 L (4.40-5.60) X 10*6/uL Hgb 10.4 L (13.0-17.0) g/dL Hct 32.0 L (39.6-50.0) % MCV 99.4 H (80.0-97.0) fL MCH 32.3 H (27.0-32.0) pg Lymphocytes # 0.75 L (0.90-5.00) X 10*3/uL POC Glucose (mg/dL) (70-110) mg/dL Hemoglobin A1c 6.4 H (0.0-6.0) % Carcinoembryonic Ag 31.2 H (0.0-4.9) ng/mL 10/03/22 Range/Units 11:01 RBC (4.40-5.60) X 10*6/uL Hgb (13.0-17.0) g/dL Hct (39.6-50.0) % MCV (80.0-97.0) fL MCH (27.0-32.0) pg Lymphocytes # (0.90-5.00) X 10*3/uL POC Glucose (mg/dL) 147 H (70-110) mg/dL Hemoglobin A1c (0.0-6.0) % Carcinoembryonic Ag (0.0-4.9) ng/mL Assessment and Plan (1) Liver mass Current Visit: Yes Status: Acute Priority: High Code(s): R16.0 - HEPATOMEGALY, NOT ELSEWHERE CLASSIFIED SNOMED Code(s): 897165542 Plan: Liver mass: -Gallbladder ultrasound revealed solid masses within the liver. The left lobe measuring up to 6.3 cm and the right lip right lobe measuring up to 10.[address] abdomen and pelvis revealed 3 large hypo-attenuating ill-defined bilobar hepatic lesions favored to represent metastasis. Subtle 1.9 cm ill-defined hypodense nonspecific lesion within the pancreatic head/neck. Horseshoe kidney with mild right hydronephrosis. No obstructing calculus identified. -CT chest to r/o metastasis ordered -IR consulted for liver biopsy. Spoke with IR nurse today, she states that radiologist is requesting test to be done in the outpatient setting as patient is stable. We will schedule liver biopsy upon discharge with clinic f/u -If biopsy reveals pancreatic origin, will plan to pursue more detailed imaging of pancreas -AFP and CA 19-9 normal. CEA elevated, 36.2 -Pending biopsy results, will plan for NGS and PDL1 testing Pt updated on plan of care and is agreeable to move forward with biopsy attests: I have performed H&P and developed impression and plan of care for patient, discussed with dictator. I reviewed dictated note, documented as a scribe
--- NOTE | 2022-10-03 14:29 | P.PN ---
Subjective Progress Note Date: 10/03/22 This is a pleasant 66 years old male with multiple medical problems including atrial fibrillation note on blood thinner, anxiety, depression and bipolar, diabetes mellitus, hypertension, hypothyroidism, COPD, hyperlipidemia Patient states he presents because of pain in his stomach for the last 2 months and he lost about 20 pounds. He has poor appetite but no vomiting. His stool is very pale and has a picture and his cellular phone about it and showing it He felt sometimes very dizzy and headache but not now. He denies weakness or numbness. No chest pain or dyspnea. No coughing. No weakness or numbness or confusion He has sometimes difficulty with urination Patient states that he had colonoscopy about 5 years ago which was unremarkable for mass as per patient only If he is depressed but he denies suicidal ideation or homicidal ideation or hallucination or delusions. Patient's tears about his family. Vitals are stable Labs showing mild anemia with hemoglobin 12.3, INR is 1.3. BNP and liver enzymes are unremarkable. Bilirubin is normal 1.0. Troponin is negative. Magnesium was low 1.1. Lactic acid within the reference range at 1.8 EKG showing atrial paced rhythm with no significant ST-T changes Chest x-ray: No acute process Gallbladder ultrasound: There be a solid masses within the liver, and the left lobe measuring up to 6.3 cm and the right lobe measuring up to 10.3 cm, francie mmended CT and/or MRI revealed no gallstones, no biliary ductal dilatation Patient received normal saline and emergency room and admitted 10/02/2022 Patient is seen and evaluated in follow-up and is currently awaiting to undergo CT abdomen and pelvis with GI following an oncology is placed on consulted and pending at this time. Patient does have continuous nausea and he reports has been on going for approximately one month. Patient denies vomiting and is tolerating oral intake. Patient does have chronic pain and has a pain pump of the spinal cord and is having some generalized abdominal pain. Patient reports to voiding with no difficulties although appears concentrated and patient is m ost likely somewhat dehydrated. Patient is afebrile with no reports of chest pain or shortness of breath noted. 10/03/2022 Patient is seen and evaluated in follow-up this morning currently sitting up in the bed being followed by oncology. Initial plan was for interventional radiology evaluation for possible biopsy of the liver although per Dr. Martel this can be done outpatient and oncology working on arranging for appointment in the outpatient setting. CT chest is ordered and pending for sometime this afternoon as patient did receive contrast yesterday. Patient is having some right-sided abdominal pain and will increase Rankin slightly and continue current regimen. Patient is currently afebrile denies chest pain or shortness of breath and is tolerating diet. Patient was nothing by mouth initially for IR evaluation although this is not being done at this time and okay to feed the patient. Will follow-up with labs in the a.m. with possible discharge planning her next 24-48 hours. Review of systems: Constitutional: No reports of fatigue, fever, or chills Cardiovascular: No reports of chest pain or palpitations Respiratory: No reports of shortness of breath or cough GI: reports of nausea continuously and has been for over 2 months, no reports of vomiting, or diarrhea : No reports of dysuria or retention Neurovascular: reports of generalized weakness All medications have been reviewed Physical exam: GENERAL: The patient is alert and oriented x3, not in any acute distress. Thin built HEENT: Pupils are round and equally reacting to light. EOMI. No scleral icterus. No conjunctival pallor. Normocephalic, atraumatic. No pharyngeal erythema. No thyromegaly. CARDIOVASCULAR: S1 and S2 present. No murmurs, rubs, or gallops. PULMONARY: Chest is clear to auscultation, no wheezing or crackles. -ABDOMEN: Soft, mild RUQ tenderness, no rebound tenderness or guarding , normoactive bowel sounds. No palpable organomegaly. MUSCULOSKELETAL: No joint swelling or deformity. EXTREMITIES: No cyanosis, clubbing, or pedal edema. NEUROLOGICAL: Gross neurological examination did not reveal any focal deficits. SKIN: No rashes. no petechiae. Assessment: Multiple liver masses, largest on the left side 6.3 cm and also on the right side 10.3 cm, concerns for metastasis moderate calorie protein malnutrition Diabetes mellitus Hypertension Hypomagnesemia Hyperlipidemia Chronic atrial fibrillation COPD, not in exacerbation Hypothyroidism History of Anxiety, Bipolar, Depression GI prophylaxis DVT prophylaxis Full code Plan: Recommend continue with gentle IV hydration and home medications have been resumed Patient does have continued right upper quadrant and abdominal tenderness will increase Rankin slightly Recommend Zofran as needed for nausea Oncology following an consulted interventional radiology for possible biopsy of the liver and this will be done outpatient per interventional radiology department, oncology team arranging for appointment in the outpatient setting CT chest is ordered for evaluation per oncology Magnesium at 1.7 again today will replace per protocol and follow-up with repeat labs Encouraged increased activity as tolerated Overall prognosis is guarded Probable discharge in 24 hours The impression and plan of care has been dictated by Tasha Childs, Nurse Practitioner as directed. Dr. Eve MD I have performed a history and examination and MDM of this patient, discussed the same with the dictator, and agree with the dictator's assessment and plan as written ,documented as a scribe. Based on total visit time, I have performed more than 50% of the visit. Objective - Vital Signs Vital signs: Vital Signs Temp 98.9 F 10/03/22 11:40 Pulse 57 L 10/03/22 11:40 Resp 17 10/03/22 11:40 BP 116/69 10/03/22 11:40 Pulse Ox 96 10/03/22 11:40 FiO2 Intake & Output 10/02/22 10/03/22 10/03/22 18:59 06:59 18:59 Intake Total 900 300 Output Total 1200 500 Balance -300 -200 Weight 77.111 kg Intake: Intake, IV Titration 900 Amount Dextrose 5%-0.9% NaCl 1, 900 000 ml @ 75 mls/hr IV . [id number] [facility] Rx#:[id number] Oral 300 Output: Urine 1200 500 Other: Voiding Method Toilet Toilet Toilet Urinal Urinal Urinal # Voids 1 - Labs CBC & Chem 7: 10/03/22 05:59 10/03/22 05:59 Labs: Abnormal Lab Results - Last 24 Hours (Table) 10/03/22 10/03/22 10/03/22 Range/Units 05:59 05:59 11:01 RBC 3.22 L (4.40-5.60) X 10*6/uL Hgb 10.4 L (13.0-17.0) g/dL Hct 32.0 L (39.6-50.0) % MCV 99.4 H (80.0-97.0) fL MCH 32.3 H (27.0-32.0) pg Lymphocytes # 0.75 L (0.90-5.00) X 10*3/uL POC Glucose (mg/dL) 147 H (70-110) mg/dL Hemoglobin A1c 6.4 H (0.0-6.0) %
--- NOTE | 2022-10-03 16:07 | CT ---
EXAMINATION TYPE: CT chest w con DATE OF EXAM: 10/03/2022 COMPARISON: None HISTORY: liver mass, r/o metastasis. CT DLP: 320.20 mGycm, Automated exposure control for dose reduction was used. CONTRAST: Performed injected with 100 mL of Isovue 300. TECHNIQUE: Axial images were obtained at 5 mm thick sections. Reconstructed images are reviewed on [employer] computer in the coronal plane. FINDINGS: Portion of the thyroid visualized is normal. There is a 0.8 cm nodule in the periphery of the left upper lung field. Series 4 image 19. There is some mild thickening along the posterior medial right lung base. Correlate for atelectasis. No enlarged mediastinal or hilar adenopathy is evident. The ascending aorta diameter at the level o f the main pulmonary artery is 3.5 cm. The main pulmonary artery diameter at the bifurcation is 2.9 cm. Coronary artery calcifications present. Limited CT sections are obtained through the upper abdomen. Abdomen is essentially unremarkable. IMPRESSIONS: 1. Solitary 0.8 cm peripheral nodule left apex. Solitary metastasis is not excluded. Partially visual ized Large mass posterior right lobe liver and within the left lobe of the liver compatible with meta static disease.
[2022-10-03 17:07] LABS: Glucose,Whole Blood 122 mg/dL (70-110)
[2022-10-03 20:35] LABS: Glucose,Whole Blood 137 mg/dL (70-110)
[2022-10-03] MEDS: QUEtiapine 200 MG TAB PO SCH (21:30)
[2022-10-04] MEDS: HYDROcodone/APAP 5-325MG 1 EACH TAB PO PRN ×4 (03:15→17:00)
[2022-10-04] MEDS: LEVOTHYROXINE 75 MCG TAB PO SCH (03:16)
[2022-10-04 07:08] LABS: Glucose,Whole Blood 105 mg/dL (70-110)
[2022-10-04] MEDS: INSULIN ASPART (NovoLOG) 100 UNIT/ML VIAL SQ SCH ×3 (07:34→18:01)
[2022-10-04] MEDS: buPROPion XL 300 MG TAB.ER.24H PO SCH (08:54)
[2022-10-04] MEDS: VENLAFAXINE HCL 50 MG TAB PO SCH ×2 (08:54→15:21)
[2022-10-04] MEDS: DILTIAZEM CD 180 MG CAP.ER.24H PO SCH (08:54)
[2022-10-04] MEDS: buPROPion XL 150 MG TAB.ER.24H PO SCH (08:54)
[2022-10-04] MEDS: LOSARTAN 50 MG TAB PO SCH (08:54)
[2022-10-04] MEDS: PANTOPRAZOLE 40 MG TABLET PO SCH (08:54)
[2022-10-04] MEDS: clonazePAM 1 MG TAB PO SCH ×2 (08:54→15:21)
[2022-10-04] MEDS: carBAMazepine 200 MG TAB PO SCH (08:54)
[2022-10-04] MEDS: DOCUSATE 100 MG CAP PO SCH (08:54)
--- NOTE | 2022-10-04 09:17 | P.PN ---
Subjective Progress Note Date: 10/04/22 Principal diagnosis: Liver mass This is a pleasant 66-year-old male with a past medical history of atrial fibrillation, coronary artery disease, COPD, diabetes mellitus, hyperlipidemia, hypertension,, anxiety and depression, former smoker and hypothyroidism presented to the emergency department for complaints of increased weakness and unintentional weight loss of 20 pounds over last 1-2 months duration. Patient states that it has been hard to breathe due to right-sided pain with breathing. He stated he's had some nausea but no vomiting. He's had a decreased appetite. States bowel movements have been normal but stools have been white. Vascular colonoscopy about 5 years ago done at [facility] which he reports as normal. Patient does have a pain pump present as well as pacemaker. Ultrasound of the abdomen was performed in the emergency department with findings of multiple liver masses with left lobe measuring up to 6.3 cm and right lobe measuring up to 10.3 cm. No gallstones or biliary ductal dilation noted. He denies any previous history of liver disease. WBC 5.5 hemoglobin 9.9 hematocrit 31 platelet count 183 INR 1.3 sodium 139 potassium 3.9 BUN 18 any creatinine 1.0 magnesium 1.1 total bilirubin 0.4 AST 66 ALT 20 alkaline phosphatase 1:30 AFP tumor marker is less than 1.8 10/03/2022: Patient seen and examined today as a follow-up. He states he is feeling a little bit better. He is trying to eat. He does state he continues to have right sided abdominal pain using pain medication as needed. Denies any nausea or vomiting. AFP tumor marker normal, CA-19-9 tumor marker normal CEA elevated at 31.2. Oncology following and has ordered a CT of the chest to rule out metastasis as well as interventional radiology biopsy of liver mass. Patient does mention today that his father had from pancreatic cancer. 10/04/2022: Patient again seen today as a follow-up. Oncology following and recommended liver biopsy however interventional radiology recommended this be done outpatient. The patient did undergo a CT of the chest at that ordered solitary 0.8 cm peripheral nodule left apex. Solitary metastasis not excluded. A partially visualized large mass posterior right lobe of the liver and within the left lobe of the liver compatible with metastatic disease. He continues to have some discomfort in that right upper quadrant of his abdomen your liver. No nausea or vomiting. Patient has been tolerating his diet although has little appetite. Objective - Vital Signs Vital signs: Vital Signs Temp 98.6 F 10/04/22 02:59 Pulse 60 10/04/22 02:59 Resp 16 10/04/22 02:59 BP 115/70 10/04/22 02:59 Pulse Ox 92 L 10/04/22 02:59 FiO2 Intake & Output 10/03/22 10/04/22 10/04/22 18:59 06:59 18:59 Intake Total 120 Balance 120 Intake: Oral 120 Other: Voiding Method Toilet Toilet Urinal Urinal # Voids 1 1 - Exam General appearance: The patient is alert, oriented, appears in no acute distress. HET: Head is normocephalic and atraumatic. Conjunctiva pink. Sclera anicteric. Neck: Supple without lymphadenopathy. Abdomen: Soft, mild tenderness right upper quadrant, nondistended with bowel sounds. No guarding or rigidity. Extremities: Normal skin color and turgor. No pedal edema Skin: No rashes, no jaundice Neurological: No focal deficits. Alert and oriented. - Labs CBC & Chem 7: 10/03/22 05:59 10/03/22 05:59 Labs: Abnormal Lab Results - Last 24 Hours (Table) 10/03/22 10/03/22 10/03/22 Range/Units 05:59 05:59 11:01 RBC 3.22 L (4.40-5.60) X 10*6/uL Hgb 10.4 L (13.0-17.0) g/dL Hct 32.0 L (39.6-50.0) % MCV 99.4 H (80.0-97.0) fL MCH 32.3 H (27.0-32.0) pg Lymphocytes # 0.75 L (0.90-5.00) X 10*3/uL POC Glucose (mg/dL) 147 H (70-110) mg/dL Hemoglobin A1c 6.4 H (0.0-6.0) % 10/03/22 10/03/22 Range/Units 17:06 20:35 RBC (4.40-5.60) X 10*6/uL Hgb (13.0-17.0) g/dL Hct (39.6-50.0) % MCV (80.0-97.0) fL MCH (27.0-32.0) pg Lymphocytes # (0.90-5.00) X 10*3/uL POC Glucose (mg/dL) 122 H 137 H (70-110) mg/dL Hemoglobin A1c (0.0-6.0) % Assessment and Plan (1) Liver mass Narrative/Plan: 66-year-old male who presented for weakness and weight loss of 20 pounds over the last 1-2 months with complaints of right upper quadrant pain especially with breathing underwent ultrasound findings of multiple solid liver masses. No previous history of liver disease. Last colonoscopy 5 years ago but she states was normal. Will order further labs including AFP, CA-19-9 ans CEA as well as CT abdomen, as patient has pacemaker and pain pump neck compatible with MRI. Labs reviewed tumor markers negative CEA elevated at 31.4. Oncology following, patient to undergo CT of chest as well as consultation to interventional radiology for liver mass biopsy. Current Visit: Yes Status: Acute Priority: High Code(s): R16.0 - HEPATOMEGALY, NOT ELSEWHERE CLASSIFIED SNOMED Code(s): 662321849 (2) Unintentional weight loss Current Visit: Yes Status: Acute Code(s): R63.4 - ABNORMAL WEIGHT LOSS SNOMED Code(s): 283707812 (3) Weakness Current Visit: Yes Status: Acute Code(s): R53.1 - WEAKNESS SNOMED Code(s): 85676309 (4) Hypomagnesemia Current Visit: Yes Status: Acute Code(s): E83.42 - HYPOMAGNESEMIA SNOMED Code(s): 291075622 Plan: 1. Continue symptomatic and supportive care 2. Diet as tolerated 3. AFP tumor marker, CA-19-[address] 4[address] abdomen with contrast ordered for liver protocol. Patient not candidate for MRI due to pain pump and pacemaker 5. Plan is for outpatient liver biopsy 6. Continue with recommendations from oncology 7. No further workup indicated at this time from gastroenterology. Patient is cleared for discharge, to follow-up outpatient with oncology. Thank you for this consultation, we will adenopathy this time. He can follow-up with gastroenterology as needed. Dr. Esteban Sahu I agree with the dictator's note, documented as a scribe by Leslie Simeon.
[2022-10-04 12:24] LABS: Glucose,Whole Blood 186 mg/dL (70-110)
--- NOTE | 2022-10-04 16:14 | P.PN ---
Subjective Progress Note Date: 10/04/22 Principal diagnosis: liver mass At today's visit patient is resting comfortably in bedside chair. Patient reports he had worsening abdominal pain this morning. Patient reports while in the restroom this morning pain became very sharp and he felt like he was going to pass out. Also complains of intermittent nausea. Denies vomiting and diarrhea. Patient also complains of shortness of breath. Will obtain CTA chest. No other reported complaints at this time Objective - Vital Signs Vital signs: Vital Signs Temp 99.4 F 10/04/22 12:10 Pulse 65 10/04/22 12:10 Resp 13 10/04/22 12:10 BP 121/76 10/04/22 12:10 Pulse Ox 94 L 10/04/22 12:10 FiO2 Intake & Output 10/03/22 10/04/22 10/04/22 18:59 06:59 18:59 Intake Total 120 Balance 120 Weight 77.111 kg Intake: Oral 120 Other: Voiding Method Toilet Toilet Toilet Urinal Urinal Urinal # Voids 1 1 - Constitutional General appearance: Present: average body habitus, no acute distress - EENT Eyes: Present: anicteric sclerae, EOMI ENT: Present: hearing grossly normal - Respiratory Details: breathing even and unlabored - Cardiovascular Details: skin warm and dry - Gastrointestinal General gastrointestinal: Present: soft, tenderness Localized gastrointestinal: tender: RUQ - Integumentary Integumentary: Present: pale - Neurologic Neurologic Comment(s): grossly intact - Musculoskeletal Musculoskeletal: Present: strength equal bilaterally - Psychiatric Psychiatric: Present: A&O x's 3, appropriate affect, intact judgment & insight - Labs CBC & Chem 7: 10/03/22 05:59 10/03/22 05:59 Labs: Abnormal Lab Results - Last 24 Hours (Table) 10/03/22 10/03/22 10/04/22 Range/Units 17:06 20:35 12:07 POC Glucose (mg/dL) 122 H 137 H 186 H (70-110) mg/dL Assessment and Plan (1) Liver mass Current Visit: Yes Status: Acute Priority: High Code(s): R16.0 - H EPATOMEGALY, NOT ELSEWHERE CLASSIFIED SNOMED Code(s): 726673422 Plan: Liver mass: -Gallbladder ultrasound revealed solid masses within the liver. The left lobe measuring up to 6.3 cm and the right lip right lobe measuring up to 10.[address] abdomen and pelvis revealed 3 large hypo-attenuating ill-defined bilobar hepatic lesions favored to represent metastasis. Subtle 1.9 cm ill-defined hypodense nonspecific lesion within the pancreatic head/neck. Horseshoe kidney with mild right hydronephrosis. No obstructing calculus identified. -CT chest to r/o metastasis ordered -IR consulted for liver biopsy. Spoke with IR nurse, per radiologist, he is requesting test to be done in the outpatient setting as patient is stable. We will schedule liver biopsy upon discharge with clinic f/u -If biopsy reveals pancreatic origin, will plan to pursue more detailed imaging of pancreas -AFP and CA 19-9 normal. CEA elevated, 36.2 -Pending biopsy results, will plan for NGS and PDL1 testing Pt updated on plan of care and is agreeable to move forward with biopsy SOB: -Will order CTA chest to r/o PE attests: I have performed H&P and developed impression and plan of care for patient, discussed with dictator. I reviewed dictated note, documented as a scribe
[2022-10-04 17:02] LABS: Glucose,Whole Blood 182 mg/dL (70-110)
[2022-10-04 18:01] LABS: African American GFR (CKD) >90 (>60 ml/min/1.73 sqM); Anion Gap 12 mmol/L; Blood Urea Nitrogen 17 mg/dL (9-20); Calcium 8.6 mg/dL (8.4-10.2); Carbon Dioxide 26 mmol/L (22-30); Chloride 99 mmol/L (98-107); Glucose 194 mg/dL (74-99); Non-African American GFR(CKD) >90 (>60 ml/min/1.73 sqM); Potassium 5.1 mmol/L (3.5-5.1); Sodium 137 mmol/L (137-145)
--- NOTE | 2022-10-04 19:03 | CT ---
EXAMINATION TYPE: CT angio chest CT DLP: 359.40 mGycm, Automated exposure control for dose reduction was used. DATE OF EXAM: 10/04/2022 6:57 PM COMPARISON: Chest radiograph from same day. 10/02/2022 CT. CLINICAL INDICATION:Male, 66 years old with history of PE suspected; poss PE TECHNIQUE/CONTRAST: CTA scan of the thorax is performed with IV Contrast, patient injected with 63 mL of Isovue 370, pulm onary embolism protocol. MIP images are created and reviewed these are created on a separate worksta tion.. FINDINGS: Pulmonary Artery: There is no evidence for a filling defect within the pulmonary vasculature to sugge st acute pulmonary embolism. The pulmonary artery is of normal size. Lungs/Pleura: 7 mm left upper lobe nodule, 5 mm right middle lobe nodule near the diaphragm. No evide nce of focal consolidation, pleural effusion or pneumothorax. Airway: Large airways are patent. Heart: Heart is within normal limits for size. Atherosclerosis of the arterial vasculature including the coronary arteries. Cardiac conduction leads with tips terminating in the right ventricle and righ t atrium. Vasculature: No evidence of aortic aneurysm. Mediastinum: No gross evidence of adenopathy. Musculoskeletal: No acute osseous abnormalities Soft Tissues: Unremarkable. Lower neck: No significant findings. Upper Abdomen: Hepatic geographic area of low-attenuation within the liver as seen on prior imaging. Measuring at least 8.9 x 12.7 cm IMPRESSION: 1. No evidence of pulmonary embolism. 2. Hepatic mass similar to prior imaging on 10/02/2022. 3. 7 mm left upper lobe and 5 mm right middle lobe pulmonary nodules. Given history of liver mass, fi ndings could represent metastatic disease.
[2022-10-04 19:20] VITALS: BP 120/69; PULSE 68; RESP 16; TEMP 99.7
== END 2022-10-04 20:02 | disposition home or self-care (01) | DRG 436 ==
LOC: EC 10:20 → 5NMEDONC 14:59
PROVIDERS: ADMIT Internal Medicine; ATTEND Internal Medicine
DX: C78.7 Secondary malignant neoplasm of liver and intrahepatic bile duct (principal); E44.0 Moderate protein-calorie malnutrition; I48.20 Chronic atrial fibrillation, unspecified; J44.1 Chronic obstructive pulmonary disease with (acute) exacerbation; J44.0 Chronic obstructive pulmonary disease with (acute) lower respiratory infection; N13.2 Hydronephrosis with renal and ureteral calculous obstruction; I25.10 Atherosclerotic heart disease of native coronary artery without angina pectoris; I10 Essential (primary) hypertension; E78.5 Hyperlipidemia, unspecified; E03.9 Hypothyroidism, unspecified; R53.1 Weakness; F17.290 Nicotine dependence, other tobacco product, uncomplicated; F41.9 Anxiety disorder, unspecified; F31.9 Bipolar disorder, unspecified; E83.42 Hypomagnesemia; Z68.24 Body mass index [BMI] 24.0-24.9, adult; D64.9 Anemia, unspecified; E86.0 Dehydration; G89.29 Other chronic pain; R63.4 Abnormal weight loss; E11.9 Type 2 diabetes mellitus without complications; I25.2 Old myocardial infarction; Z79.4 Long term (current) use of insulin; Z88.0 Allergy status to penicillin; Z79.84 Long term (current) use of oral hypoglycemic drugs; Z79.890 Hormone replacement therapy; Z79.899 Other long term (current) drug therapy; Z96.642 Presence of left artificial hip joint; Z95.0 Presence of cardiac pacemaker
CPT/HCPCS: 36415; 71046; 71260; 71275; 74170; 76705; 80048; 80053; 81001; 82105; 82378; 83036; 83605; 83735; 84484; 85025; 85027; 85610; 85730; 86301; 86850; 86900; 86901; 93005; 94760; 96361; 96365; 96366; 99285

== ENCOUNTER 2022-10-15 12:27 | Emergency (ER) | payer MEDICARE ==
--- NOTE | 2022-10-15 13:22 | ED ---
Weakness HPI - General Source: patient, RN notes reviewed Mode of arrival: wheelchair Limitations: no limitations <Donavan Valdez - Last Filed: 10/15/22 13:21> - History of Present Illness MD Complaint: generalized weakness, lack of energy -: week(s) Location: generalized Consistency: constant Improves with: none Worsens with: none Associated Symptoms: loss of appetite, nausea/vomiting <Davey Muller - Last Filed: 10/22/22 02:58> - General Chief complaint: Weakness Stated complaint: abn labs, abd pain, weakness Time Seen by Provider: 10/15/22 13:21 - History of Present Illness Initial comments: 66-year-old male presents emergency department to complaint of abdominal pain. Patient was recently discharged after possible physician for liver mass concerning for cancer. Patient states been having increasing pain, weakness. Patient states she is scheduled for follow-up because symptoms are getting worse or present to the emergency department. (Donavan Valdez) This patient is a 66-year-old man presenting with complaint of right upper quadrant abdominal pain. He had been admitted in the hospital here October 01- for similar pains and was found to have liver masses suspicious for metastatic disease. The patient was supposed to have biopsy by interventional radiology but states that he was not given a date for this. Patient also is having poor oral intake and continues to have weight loss. (Davey Muller) - Related Data Home Medications Medication Instructions Recorded Confirmed Diltiazem Cd [Cardizem CD] 180 mg PO DAILY 07/14/21 10/18/22 Docusate [Colace] 100 mg PO BID 07/14/21 10/18/22 Levothyroxine Sodium [Synthroid] 75 mcg PO DAILY 07/14/21 10/18/22 Losartan Potassium 100 mg PO DAILY 07/14/21 10/18/22 QUEtiapine [SEROquel] 400 mg PO HS 07/14/21 10/18/22 buPROPion HCL [Wellbutrin XL] 300 mg PO DAILY 07/14/21 10/18/22 buPROPion XL [Wellbutrin XL] 150 mg PO DAILY 07/14/21 10/18/22 carBAMazepine [TEGretol] 400 mg PO BID 07/14/21 10/18/22 clonazePAM [KlonoPIN] 1 mg PO TID 07/14/21 10/18/22 Venlafaxine HCl [Effexor] 100 mg PO TID 07/15/21 10/18/22 Butalbital/Acetaminophen 50-325mg 1 tab PO BID PRN 10/01/22 10/18/22 Insulin Aspart Prot/Insuln Asp 1 - 15 units SQ AC-BID PRN 10/01/22 10/18/22 [Relion Novolog Mix 70-30 Flxpn] Relaxium-Sleep Otc 2 cap PO HS 10/01/22 10/18/22 Atorvastatin [Lipitor] 40 mg PO DAILY 10/15/22 10/18/22 Morphine Pain Pump 1 dose INTRATHECA DIRECTED 10/15/22 10/18/22 metFORMIN HCL [Glucophage] 1,000 mg PO BID 10/15/22 10/18/22 Previous Rx's Medication Instructions Recorded HYDROcodone/APAP 5-325MG [[place] 1 tab PO Q4HR PRN 3 Days #18 tab 10/15/22 5-325] Allergies Allergy/AdvReac Type Severity Reaction Status Date / Time morphine Allergy see Verified 10/18/22 13:58 comments Penicillins Allergy Unknown Verified 10/18/22 13:58 Review of Systems ROS Other: All systems not noted in ROS Statement are negative. <Donavan Valdez - Last Filed: 10/15/22 13:21> ROS Other: All systems not noted in ROS Statement are negative. Constitutional: Reports: weakness, weight change. Denies: fever, chills Eyes: Denies: vision change Respiratory: Denies: cough, dyspnea Cardiovascular: Denies: chest pain, palpitations, edema Gastrointestinal: Reports: abdominal pain, nausea. Denies: vomiting, diarrhea, constipation, melena, hematochezia Genitourinary: Denies: dysuria, hematuria Musculoskeletal: Denies: back pain Skin: Denies: rash Neurological: Denies: headache, weakness <Davey Muller - Last Filed: 10/22/22 02:58> ROS Statement: Those systems with pertinent positive or pertinent negative responses have been documented in the HPI. Past Medical History Past Medical History: Atrial Fibrillation, Coronary Artery Disease (CAD), COPD, Diabetes Mellitus, Hyperlipidemia, Hypertension, Myocardial Infarction (NV), Thyroid Disorder Additional Past Medical History / Comment(s): NV 2019, hypothyroid Last Myocardial Infarction Date:: 2019 History of Any Multi-Drug Resistant Organisms: None Reported Past Surgical History: Joint Replacement, Pacemaker Additional Past Surgical History / Comment(s): pacemaker insertion, pain pump, left hip replacement Past Anesthesia/Blood Transfusion Reactions: No Reported Reaction Type of Cardiac Device: Permanent Pacemaker Device Placement Date:: 2018 Past Psychological History: Anxiety, Bipolar, Depression Smoking Status: Former smoker, Vaper Past Alcohol Use History: None Reported Past Drug Use History: None Reported - Past Family History Father Family Medical History: Cancer, COPD, Hearing Disorder / Deafness Mother Family Medical History: COPD <Donavan Valdez - Last Filed: 10/15/22 13:21> General Exam Limitations: no limitations <Donavan Valdez - Last Filed: 10/15/22 13:21> Limitations: no limitations General appearance: alert, in no apparent distress Head exam: Present: atraumatic, normocephalic Eye exam: Present: normal appearance. Absent: scleral icterus, conjunctival injection Neck exam: Present: normal inspection Respiratory exam: Present: normal lung sounds bilaterally. Absent: respiratory distress, wheezes, rales, rhonchi, stridor Cardiovascular Exam: Present: regular rate, normal rhythm, normal heart sounds. Absent: systolic murmur, diastolic murmur, rubs, gallop GI/Abdominal exam: Present: soft, mass (Pain pump is palpable in the left lower quadrant of the abdomen). Absent: distended, tenderness, guarding, rebound, rigid, pulsatile mass, hernia Extremities exam: Present: normal inspection, normal capillary refill. Absent: pedal edema, calf tenderness Back exam: Present: normal inspection. Absent: CVA tenderness (R), CVA tenderness (L) Neurological exam: Present: alert Skin exam: Present: warm, dry, intact, normal color. Absent: rash <Davey Muller - Last Filed: 10/22/22 02:58> - General Exam Comments Initial Comments: Visual Physical Exam Vital signs reviewed General: Well-appearing, nontoxic, no acute distress. Head: Normocephalic, atraumatic Eyes: PERRLA, EOMI ENT: Airway patent Chest: Nonlabored breathing Skin: No visual rash, normal skin tone Neuro: Alert and oriented 3 Musculoskeletal: No gross abnormalities (Donavan Valdez) Course Vital Signs 10/15/22 10/15/22 17:00 19:26 Temperature 99.4 F 98.2 F Pulse Rate 96 59 L Respiratory 18 18 Rate Blood Pressure 139/80 142/78 O2 Sat by Pulse 96 96 Oximetry EKG Findings - EKG Results: EKG: interpreted by KIRAN, sinus rhythm (Sinus versus atrial paced rhythm rate 866 bpm) - Blocks, [place], Hypertrophy, ST Abn: AV and intraventricular conduction: right bundle branch block (fixed/int ermittent, complete/incomplete) QRS axis and voltage: left axis deviation (-30 to -90) (Borderline left axis) <Davey Muller - Last Filed: 10/22/22 02:58> Medical Decision Making - Lab Data Result diagrams: 10/15/22 13:30 10/15/22 13:30 <Davey Muller - Last Filed: 10/22/22 02:58> - Medical Decision Making Patient is a 66-year-old man with recent diagnosis of suspected cancer unknown primary, probable metastatic liver disease. The patient presents here mainly with complaints of abdominal pain and feeling dehydrated. The patient workup here does confirm he has moderately dehydrated. The patient is given IV fluids and medication and is feeling better, well enough to continue workup as outpatient. The lactic acidosis which is initially present from the dehydration does resolve with fluids. I did provide him with the scheduling number for outpatient radiology and he will call his oncologist in the morning to ensure that there is an order as well so that he can have the biopsy of the liver lesions. We discussed appropriate further care and follow-up as well as return parameters. Was pt. sent in by a medical professional or institution (, PA, FAMILY REUNIFICATION SPECIALIST, urgent care, hospital, or residential...) When possible be specific @ -[No] Did you speak to anyone other than the patient for history (EMS, parent, family, police, friend...)? What history was obtained from this source @ -[No] Did you review nursing and triage notes (agree or disagree)? Why? @ -[I reviewed and agree with nursing and triage notes] Were old charts reviewed (outside hosp., previous admission, EMS record, old EKG, old radiological studies, urgent care reports/EKG's, residential records)? Report findings @ -[yes, old charts were reviewed] Differential Diagnosis (chest pain, altered mental status, abdominal pain women, abdominal pain men, vaginal bleeding, weakness, fever, dyspnea, syncope, headache, dizziness, GI bleed, back pain, seizure, CVA, palpatations, mental health, musculoskeletal)? @ -[Differential Abdominal Pain Men: Appendicitis, cholecystitis, diverticulosis, ischemic bowel, pancreatitis, hepatitis, UTI, gastroenteritis, AAA, incarcerated hernia, bowel obstruction, constipation, inflammatory bowel, hepatitis, peptic ulcer disease, splenic infarction, perforated viscus, testicular torsion, this is not meant to be an all-inclusive list EKG interpreted by me (3pts min.). @ -[As above] X-rays interpreted by me (1pt min.). @ -[None done] CT interpreted by me (1pt min.). @ -[None done] U/S interpreted by me (1pt. min.). @ -[None done] What testing was considered but not performed or refused? (CT, X-rays, U/S, labs)? Why? @ -[None] What meds were considered but not given or refused? Why? @ -[None] Did you discuss the management of the patient with other professionals (professionals i.e. , PA, FAMILY REUNIFICATION SPECIALIST, lab, RT, psych nurse, rn social work, wax engraver, teacher, policy officer, rehabilitation case coordinator)? Give summary @ -[No] Was smoking cessation discussed for >3mins.? @ -[No] Was critical care preformed (if so, how long)? @ -[No] Were there social determinants of health that impacted care today? How? (Homelessness, low income, unemployed, alcoholism, drug addiction, transportation, low edu. Level, literacy, decrease access to med. care, [facility], rehab)? @ -[No] Was there de-escalation of care discussed even if they declined (Discuss DNR or withdrawal of care, Hospice)? DNR status @ -[No] What co-morbidities impacted this encounter? (DM, HTN, Smoking, COPD, CAD, Cancer, CVA, ARF, Chemo, Hep., AIDS, mental health diagnosis, sleep apnea, morbid obesity)? @ -[Cancer Was patient admitted / discharged? Hospital course, mention meds given and route, prescriptions, significant lab abnormalities, going to OR and other pertinent info. @ -[Discharged Undiagnosed new problem with uncertain prognosis? @ -[No] Drug Therapy requiring intensive monitoring for toxicity (Heparin, Nitro, Insulin, Cardizem)? @ -[No] Were any procedures done? @ -[No] Diagnosis/symptom? @ -[Acute on chronic abdominal pain Dehydration, acute Lactic acidosis, acute Hypomagnesemia, suspect chronic Acute, or Chronic, or Acute on Chronic? @ -[default] Uncomplicated (without systemic symptoms) or Complicated (systemic symptoms)? @ -[Uncomplicated Side effects of treatment? @ -[No] Exacerbation, Progression, or Severe Exacerbation? @ -[No] Poses a threat to life or bodily function? How? (Chest pain, USA, NV, pneumonia, PE, COPD, DKA, ARF, appy, cholecystitis, CVA, Diverticulitis, Homicidal, Suicidal, threat to staff... and all critical care pts) @ -[No] (Davey Muller) - Lab Data Lab Results 10/15/22 10/15/22 10/15/22 Range/Units 13:30 13:30 13:30 WBC 8.8 (3.8-10.6) k/uL RBC 4.11 L (4.30-5.90) m/uL Hgb 13.2 (13.0-17.5) gm/dL Hct 41.2 (39.0-53.0) % MCV 100.2 H (80.0-100.0) fL MCH 32.1 (25.0-35.0) pg MCHC 32.1 (31.0-37.0) g/dL RDW 13.2 (11.5-15.5) % Plt Count 483 H (150-450) k/uL MPV 7.3 Neutrophils % 85 % Lymphocytes % 8 % Monocytes % 5 % Eosinophils % 1 % Basophils % 0 % Neutrophils # 7.5 (1.3-7.7) k/uL Lymphocytes # 0.7 L (1.0-4.8) k/uL Monocytes # 0.5 (0-1.0) k/uL Eosinophils # 0.1 (0-0.7) k/uL Basophils # 0.0 (0-0.2) k/uL PT 12.4 H (9.0-12.0) sec INR 1.2 H (<1.2) APTT 25.7 (22.0-30.0) sec Sodium 138 (137-145) mmol/L Potassium 4.7 (3.5-5.1) mmol/L Chloride 102 (98-107) mmol/L Carbon Dioxide 22 (22-30) mmol/L Anion Gap 14 mmol/L BUN 31 H (9-20) mg/dL Creatinine 1.10 (0.66-1.25) mg/dL Est GFR (CKD-EPI)AfAm 82 (>60 ml/min/1.73 sqM) Est GFR (CKD-EPI)NonAf 71 (>60 ml/min/1.73 sqM) Glucose 142 H (74-99) mg/dL Lactic Ac Sepsis Rflx Plasma Lactic Acid Cody (0.7-2.0) mmol/L Calcium 9.4 (8.4-10.2) mg/dL Magnesium 1.4 L (1.6-2.3) mg/dL Total Bilirubin 1.0 (0.2-1.3) mg/dL AST 64 H (17-59) U/L ALT 24 (4-49) U/L Alkaline Phosphatase 186 H (38-126) U/L Total Protein 7.6 (6.3-8.2) g/dL Albumin 4.5 (3.5-5.0) g/dL 10/15/22 10/15/22 10/15/22 Range/Units 13:30 14:24 17:50 WBC (3.8-10.6) k/uL RBC (4.30-5.90) m/uL Hgb (13.0-17.5) gm/dL Hct (39.0-53.0) % MCV (80.0-100.0) fL MCH (25.0-35.0) pg MCHC (31.0-37.0) g/dL RDW (11.5-15.5) % Plt Count (150-450) k/uL MPV Neutrophils % % Lymphocytes % % Monocytes % % Eosinophils % % Basophils % % Neutrophils # (1.3-7.7) k/uL Lymphocytes # (1.0-4.8) k/uL Monocytes # (0-1.0) k/uL Eosinophils # (0-0.7) k/uL Basophils # (0-0.2) k/uL PT (9.0-12.0) sec INR (<1.2) APTT (22.0-30.0) sec Sodium (137-145) mmol/L Potassium (3.5-5.1) mmol/L Chloride (98-107) mmol/L Carbon Dioxide (22-30) mmol/L Anion Gap mmol/L BUN (9-20) mg/dL Creatinine (0.66-1.25) mg/dL Est GFR (CKD-EPI)AfAm (>60 ml/min/1.73 sqM) Est GFR (CKD-EPI)NonAf (>60 ml/min/1.73 sqM) Glucose (74-99) mg/dL Lactic Ac Sepsis Rflx Y Plasma Lactic Acid Cody 2.6 H* 1.4 (0.7-2.0) mmol/L Calcium (8.4-10.2) mg/dL Magnesium (1.6-2.3) mg/dL Total Bilirubin (0.2-1.3) mg/dL AST (17-59) U/L ALT (4-49) U/L Alkaline Phosphatase (38-126) U/L Total Protein (6.3-8.2) g/dL Albumin (3.5-5.0) g/dL Disposition <Donavan Valdez - Last Filed: 10/15/22 13:21> Is patient prescribed a controlled substance at d/c from ED?: Yes <Davey Muller - Last Filed: 10/22/22 02:58> Clinical Impression: Liver mass, Dehydration, Hypomagnesemia, Lactic acidosis Disposition: HOME SELF-CARE Condition: Fair Instructions (If sedation given, give patient instructions): Dehydration (ED), Abdominal Pain (ED) Additional Instructions: physicians would like for you to have interventional radiology do a liver biopsy. This may be scheduled to the call center at [phone]. Call Dr[address] Manzanares to have him order the study and then phone the call center to have it scheduled Prescriptions: HYDROcodone/APAP 5-325MG [[place] 5-325] 1 tab PO Q4HR PRN 3 Days #18 tab PRN Reason: Pain Referrals: Luis Manuel Loaiza MD [Primary Care Provider] - 1-2 days Charles aMnzanares MD [STAFF PHYSICIAN] - 1-2 days
[2022-10-15 13:59] LABS: Basophils % (A) 0 %; Eosinophils # (A) 0.1 k/uL (0-0.7); Eosinophils % (A) 1 %; HCT 41.2 % (39.0-53.0); HGB 13.2 gm/dL (13.0-17.5); Lymphocytes # (A) 0.7 k/uL (1.0-4.8); Lymphocytes % (A) 8 %; MCH 32.1 pg (25.0-35.0); MCHC 32.1 g/dL (31.0-37.0); MCV 100.2 fL (80.0-100.0); Mean Platelet Volume 7.3; Monocytes # (A) 0.5 k/uL (0-1.0); Monocytes % (A) 5 %; Neutrophils # (A) 7.5 k/uL (1.3-7.7); Neutrophils % (A) 85 %; Platelet Count 483 k/uL (150-450); RBC 4.11 m/uL (4.30-5.90); RDW 13.2 % (11.5-15.5); WBC 8.8 k/uL (3.8-10.6)
[2022-10-15 14:14] LABS: INR 1.2 (<1.2); Partial Thromboplastin Time 25.7 sec (22.0-30.0); Prothrombin Time 12.4 sec (9.0-12.0)
[2022-10-15 14:21] LABS: Albumin 4.5 g/dL (3.5-5.0); Calcium 9.4 mg/dL (8.4-10.2); Magnesium 1.4 mg/dL (1.6-2.3); Potassium 4.7 mmol/L (3.5-5.1); Total Protein 7.6 g/dL (6.3-8.2)
[2022-10-15] MEDS ORDERED: SODIUM CHLORIDE 0.9% 500 ML 500 ML IV STA (15:26)
[2022-10-15] MEDS ORDERED: SODIUM CHLORIDE 0.9% 1,000 ML IV ONE (15:26)
[2022-10-15] MEDS ORDERED: SODIUM CHLORIDE 0.9% 1,000 ML IV STA (15:26)
[2022-10-15] MEDS ORDERED: MORPHINE SULFATE 4 MG/ML SYRINGE IV STA ×2 (15:26→18:59)
[2022-10-15] MEDS ORDERED: carBAMazepine 200 MG TAB PO STA (17:42)
[2022-10-15] MEDS ORDERED: clonazePAM 0.5 MG TAB PO STA (17:43)
[2022-10-15] MEDS ORDERED: DOCUSATE 100 MG CAP PO STA (17:43)
[2022-10-15] MEDS ORDERED: VENLAFAXINE HCL 50 MG TAB PO STA (17:44)
[2022-10-15] MEDS ORDERED: ATORVASTATIN 40 MG TAB PO STA (17:44)
[2022-10-15 17:51] VITALS: RESP 18
[2022-10-15 19:27] VITALS: BP 142/78; PULSE 59; TEMP 98.2
== END 2022-10-15 19:26 | disposition home or self-care (01) ==
LOC: EC 12:27
DX: E86.0 Dehydration (principal); E83.42 Hypomagnesemia; E87.20 Acidosis, unspecified; R16.0 Hepatomegaly, not elsewhere classified; I48.91 Unspecified atrial fibrillation; I25.10 Atherosclerotic heart disease of native coronary artery without angina pectoris; J44.9 Chronic obstructive pulmonary disease, unspecified; E11.9 Type 2 diabetes mellitus without complications; E03.9 Hypothyroidism, unspecified; E78.5 Hyperlipidemia, unspecified; I10 Essential (primary) hypertension; I25.2 Old myocardial infarction; F41.9 Anxiety disorder, unspecified; F31.9 Bipolar disorder, unspecified; F17.290 Nicotine dependence, other tobacco product, uncomplicated; Z88.0 Allergy status to penicillin; Z88.5 Allergy status to narcotic agent; Z79.4 Long term (current) use of insulin; Z79.84 Long term (current) use of oral hypoglycemic drugs; Z79.899 Other long term (current) drug therapy; Z79.890 Hormone replacement therapy
CPT/HCPCS: 36415; 93005; 80053; 83605; 83735; 85025; 85610; 85730; 99285; 96374; 96375; 96361 ×4; J2270

== ENCOUNTER → 2022-10-19 | Outpatient (CLI) | payer MEDICARE ==
--- NOTE | 2022-10-20 22:21 | PE ---
EXAMINATION TYPE: PET CT fusion skull to thigh DATE OF EXAM: 10/19/2022 CLINICAL INDICATION:Male, 66 years old with history of C22.8; TECHNIQUE: Following the intravenous administration of 12.8 mCi of F-18 FDG, whole body images are performed from the skull base to the midthigh. Images are reviewed on the computer in the coronal, a xial, and sagittal planes. Reconstructed rotating images are created on independent workstation and reviewed on the computer. A non-contrast CT is performed in conjunction with the PET scan. Glucose level 123 mg/dL COMPARISON: CT 10/02/2022, ultrasound 10/01/2022, PET/CT None, FINDINGS: Mediastinal SUV mean is 1.2. Hepatic parenchyma SUV mean is 1.7. SKULL BASE AND NECK: No suspicious radiotracer activity. CHEST, MEDIASTINUM, AND HILAR REGION: Left upper lobe 5 mm pulmonary nodule Max SUV 0.6 ABDOMEN AND PELVIS: * There are 3 observations within the liver which are primarily peripherally metabolically active. * Right hepatic lobe measuring 12.0 x 8.2 and max SUV 20.53. * Left hepatic lobe measuring 6.8 x 5.3 cm Max SUV 9.7. * Superior right hepatic lobe measuring 4.6 x 5.4 cm Max SUV 9.9 Area within the pancreatic head with lower attenuation than background pancreatic parenchyma has no i ncreased FDG activity max SUV 1.2. OSSEOUS STRUCTURES: No suspicious radiotracer activity. OTHER CT: Atherosclerosis including at the carotid bifurcations. Cardiac conduction device with leads in proper position. The heart is mildly enlarged. Severe coronary artery atherosclerosis. Streaky at electasis within the lung bases. There is a horseshoe kidney. Electronic device and left lower abdome n anterior abdominal wall. Large stool burden throughout the colon. Left hip fixation hardware appear s intact. IMPRESSION: 1. There are 3 observations within the liver with peripheral metabolic activity. The largest is in t he right hepatic lobe measuring up to 12.0 cm. No evidence for lymphadenopathy or other suspicious ar eas of FDG activity. Etiology is uncertain, tissue sampling particularly along the edge of these lesi ons is recommended. These lesions did not look cystic on ultrasound imaging and had a more solid appe arance. 2. Left upper lobe 5 mm pulmonary nodule, surveillance with CT is recommended. 3. Area within the pancreatic head does not demonstrate increased FDG activity likely represents a c yst
== END | disposition home or self-care (01) ==
LOC: RADPETMAIN 12:48
PROVIDERS: ATTEND Internal Medicine Hematology & Oncology
DX: C22.8 Malignant neoplasm of liver, primary, unspecified as to type (principal); R91.1 Solitary pulmonary nodule
CPT/HCPCS: 78815; A9552

== ENCOUNTER 2022-10-24 08:46 | Day surgery (SDC) | payer MEDICARE ==
[2022-10-24] MEDS ORDERED: ALPRAZolam 0.5 MG TAB PO PRN (09:21)
[2022-10-24] MEDS ORDERED: HYDROmorphone 0.5 MG/0.5 ML SYRINGE IVP PRN (09:21)
[2022-10-24 09:46] VITALS: TEMP 98
[2022-10-24 09:46] LABS: Mean Platelet Volume 7.8; Platelet Count 288 k/uL (150-450)
[2022-10-24 09:48] LABS: INR 1.2 (<1.2); Prothrombin Time 12.3 sec (9.0-12.0)
[2022-10-24] MEDS ORDERED: MICROFIBRILLAR COLLAGEN HEMOST 0.5 GM PACK TOPICAL ONE (10:07)
[2022-10-24] MEDS ORDERED: HYDROcodone/APAP 5-325MG 1 EACH TAB PO PRN (10:26)
--- NOTE | 2022-10-24 10:42 | US ---
EXAMINATION TYPE: US biopsy liver DATE OF EXAM: 10/24/2022 COMPARISON: NONE HISTORY: Large left lobe liver mass FINDINGS: The procedure was explained to the patient. The risks, complications, benefits, and alternatives wer e discussed and any questions were answered. Informed consent was obtained. Patient was placed supi ne on the CT table and prepped and draped in the usual sterile fashion. All elements of maximal barrier and sterile technique utilized. Utilizing the guidance, an 18 gauge core biopsy needle access into the left lobe of the liver was ac hieved and three 18 gauge core samples were obtained. The patient was stable throughout the procedur e and remained stable upon discharge. IMPRESSION: 1. Successful 18 gauge core biopsy of the liver.
[2022-10-24 10:43] VITALS: RESP 16
[2022-10-24 13:22] VITALS: PULSE 62
[2022-10-24 14:00] VITALS: BP 129/80
== END 2022-10-24 13:59 | disposition home or self-care (01) ==
LOC: RADPROMAIN 08:46
PROVIDERS: ATTEND Internal Medicine Hematology & Oncology
DX: K76.89 Other specified diseases of liver (principal)
CPT/HCPCS: 82947; 85049; 85610; 88307; 36415; 47000; 76942; J1170

== ENCOUNTER 2022-11-12 21:01 | Inpatient (IN) | payer MEDICARE ==
[2022-11-12 21:37] LABS: Basophils % (A) 0 %; Eosinophils # (A) 0.1 k/uL (0-0.7); Eosinophils % (A) 1 %; HCT 41.3 % (39.0-53.0); HGB 13.1 gm/dL (13.0-17.5); Lymphocytes # (A) 0.6 k/uL (1.0-4.8); Lymphocytes % (A) 10 %; MCH 32.3 pg (25.0-35.0); MCHC 31.6 g/dL (31.0-37.0); MCV 102.2 fL (80.0-100.0); Macrocytosis Slight; Mean Platelet Volume 7.6; Monocytes # (A) 0.2 k/uL (0-1.0); Monocytes % (A) 4 %; Neutrophils # (A) 4.8 k/uL (1.3-7.7); Neutrophils % (A) 84 %; Platelet Count 408 k/uL (150-450); RBC 4.04 m/uL (4.30-5.90); WBC 5.7 k/uL (3.8-10.6)
[2022-11-12 21:44] LABS: INR 1.1 (<1.2); Partial Thromboplastin Time 24.4 sec (22.0-30.0); Prothrombin Time 11.1 sec (9.0-12.0)
[2022-11-12 21:50] LABS: ALT 29 U/L (4-49); AST 100 U/L (17-59); African American GFR (CKD) >90 (>60 ml/min/1.73 sqM); Albumin 5.2 g/dL (3.5-5.0); Alkaline Phosphatase 275 U/L (38-126); Amylase 223 U/L (30-110); Anion Gap 21 mmol/L; Blood Urea Nitrogen 38 mg/dL (9-20); Calcium 10.3 mg/dL (8.4-10.2); Carbon Dioxide 19 mmol/L (22-30); Chloride 102 mmol/L (98-107); Glucose 150 mg/dL (74-99); Lipase 402 U/L (23-300); Non-African American GFR(CKD) >90 (>60 ml/min/1.73 sqM); Potassium 5.6 mmol/L (3.5-5.1); Sodium 142 mmol/L (137-145); Total Bilirubin 0.5 mg/dL (0.2-1.3)
[2022-11-12] MEDS ORDERED: HYDROmorphone 1 MG/ML 1 ML SYRINGE IVP STA (21:55)
[2022-11-12] MEDS ORDERED: ONDANSETRON 4 MG/2 ML VIAL IVP STA (21:55)
[2022-11-12] MEDS ORDERED: KETOROLAC 15 MG/ML 1 ML VIAL IVP STA (21:55)
[2022-11-12] MEDS ORDERED: SODIUM CHLORIDE 0.9% 500 ML 500 ML IV STA (21:55)
[2022-11-12] MEDS ORDERED: SODIUM CHLORIDE 0.9% 1,000 ML IV STA (21:55)
--- NOTE | 2022-11-12 21:56 | ED ---
Abdominal Pain HPI - General Chief Complaint: Abdominal Pain Stated Complaint: vomiting Time Seen by Provider: 11/12/22 21:44 Source: patient, family, RN notes reviewed, old records reviewed Mode of arrival: wheelchair Limitations: no limitations - History of Present Illness Initial Comments: This is a 66-year-old male the ER. Patient Dese for evaluation regards to abdominal pain epigastric and right upper quadrant abdominal pain severe nausea no fevers no vomiting. Patient is no travel history no significant complaints. MD Complaint: abdominal pain -: days(s) Location: diffuse, periumbilical, epigastric, suprapubic Radiation: RUQ, epigastric, suprapubic Migration to: R flank Severity: moderate Severity scale (1-10): 7 Quality: stabbing Consistency: constant Improves With: nothing Worsens With: nothing Associated Symptoms: nausea Treatments Prior to Arrival: other (0) - Related Data Home Medications Medication Instructions Recorded Confirmed Diltiazem Cd [Cardizem CD] 180 mg PO DAILY 07/14/21 11/12/22 Docusate [Colace] 100 mg PO BID 07/14/21 11/12/22 Levothyroxine Sodium [Synthroid] 75 mcg PO DAILY 07/14/21 11/12/22 Losartan Potassium 100 mg PO DAILY 07/14/21 11/12/22 QUEtiapine [SEROquel] 400 mg PO HS 07/14/21 11/12/22 buPROPion HCL [Wellbutrin XL] 300 mg PO DAILY 07/14/21 11/12/22 buPROPion XL [Wellbutrin XL] 150 mg PO DAILY 07/14/21 11/12/22 carBAMazepine [TEGretol] 400 mg PO BID 07/14/21 11/12/22 clonazePAM [KlonoPIN] 1 mg PO TID 07/14/21 11/12/22 Venlafaxine HCl [Effexor] 100 mg PO TID 07/15/21 11/12/22 Butalbital/Acetaminophen 50-325mg 1 tab PO BID PRN 10/01/22 11/12/22 Insulin Aspart Prot/Insuln Asp 1 - 15 units SQ AC-BID PRN 10/01/22 11/12/22 [Relion Novolog Mix 70-30 Flxpn] Relaxium-Sleep Otc 2 cap PO HS 10/01/22 11/12/22 Atorvastatin [Lipitor] 40 mg PO DAILY 10/15/22 11/12/22 Morphine Pain Pump 1 dose INTRATHECA DIRECTED 10/15/22 11/12/22 metFORMIN HCL [Glucophage] 1,000 mg PO BID 10/15/22 11/12/22 HYDROcodone/APAP 10-325MG [[place] 1 tab PO Q4HR PRN 11/12/22 11/12/22 10-325] Allergies Allergy/AdvReac Type Severity Reaction Status Date / Time Penicillins Allergy Unknown Verified 11/12/22 22:33 Review of Systems ROS Statement: Those systems with pertinent positive or pertinent negative responses have been documented in the HPI. ROS Other: All systems not noted in ROS Statement are negative. Past Medical History Past Medical History: Atrial Fibrillation, Coronary Artery Disease (CAD), COPD, Diabetes Mellitus, Hyperlipidemia, Hypertension, Myocardial Infarction ([place]), Thyroid Disorder Additional Past Medical History / Comment(s): [place] 2019, hypothyroid Last Myocardial Infarction Date:: 2018 History of Any Multi-Drug Resistant Organisms: None Reported Past Surgical History: Joint Replacement, Pacemaker Additional Past Surgical History / Comment(s): pacemaker insertion, pain pump, left hip replacement Past Anesthesia/Blood Transfusion Reactions: No Reported Reaction Type of Cardiac Device: Permanent Pacemaker Device Placement Date:: 2018 Past Psychological History: Anxiety, Bipolar, Depression Past Drug Use History: None Reported - Past Family History Father Family Medical History: Cancer, COPD, Hearing Disorder / Deafness Mother Family Medical History: COPD General Exam Limitations: no limitations General appearance: alert, in no apparent distress Head exam: Present: atraumatic, normocephalic, normal inspection Eye exam: Present: normal appearance, PERRL, EOMI. Absent: scleral icterus, c onjunctival injection, periorbital swelling ENT exam: Present: normal exam, mucous membranes moist Neck exam: Present: normal inspection. Absent: tenderness, meningismus, lymphadenopathy Respiratory exam: Present: normal lung sounds bilaterally. Absent: respiratory distress, wheezes, rales, rhonchi, stridor Cardiovascular Exam: Present: regular rate, normal rhythm, normal heart sounds. Absent: systolic murmur, diastolic murmur, rubs, gallop, clicks GI/Abdominal exam: Present: soft, normal bowel sounds. Absent: distended, tenderness, guarding, rebound, rigid Extremities exam: Present: normal inspection, full ROM, normal capillary refill. Absent: tenderness, pedal edema, joint swelling, calf tenderness Back exam: Present: normal inspection Neurological exam: Present: alert, oriented X3, CN II-XII intact Psychiatric exam: Present: normal affect, normal mood Skin exam: Present: warm, dry, intact, normal color. Absent: rash Course Vital Signs 11/12/22 11/13/22 11/13/22 21:05 00:00 01:00 Temperature 98.4 F 98.2 F Pulse Rate 70 72 69 Respiratory 20 16 16 Rate Blood Pressure 152/87 158/83 156/86 O2 Sat by Pulse 100 98 96 Oximetry - Reevaluation(s) Reevaluation #1: 11/12/22 22:53 Medical records reviewed Reevaluation #2: 11/12/22 22:53 Patient pain and symptoms are improved Reevaluation #3: 11/13/22 01:51 Patient symptoms unchanged informed results and questions answered Reevaluation #4: 11/12/22 22:53 Was pt. sent in by a medical professional or institution? @ -no Did you speak to anyone other than the patient for history? @ -no Did you review nursing and triage notes? @ -agree Were old charts reviewed? @ -yes Differential Diagnosis? @ -prior EKG interpreted by me (3pts min.)? @ -yes X-rays interpreted by me (1pt min.)? @ -yes CT interpreted by me (1pt min.)? @ -no U/S interpreted by me (1pt. min.)? @ -no What testing was considered but not performed? (CT, X-rays, U/S, labs)? Why? @ -no What meds were considered but not given? Why? @ -no Did you discuss the management of the patient with other professionals? @ -no Did you reconcile home meds? @ -no Was smoking cessation discussed for >3mins.? @ -no Was critical care preformed (if so, how long)? @ -no Were there social determinants of health that impacted care today? How? (Homelessness, low income, unemployed, alcoholism, drug addiction, transportat ion, low edu. Level, literacy, decrease access to med. care, nursing home, rehab)? @ -no Was there de-escalation of care discussed even if they declined? (Discuss DNR or withdrawal of care, Hospice)? @ -no What co-morbidities impacted this encounter? (DM, HTN, Smoking, COPD, CAD, Cancer, CVA, Hep., AIDS, mental health diagnosis, sleep apnea, morbid obesity)? @ -none Was patient admitted / discharged? @ - Undiagnosed new problem with uncertain prognosis? @ -no Drug Therapy requiring intensive monitoring for toxicity (Heparin, Nitro, Insulin, Cardizem)? @ -no Were any procedures done? @ -no Diagnosis/symptom? @ - Acute, or Chronic, or Acute on Chronic? @ -acute Uncomplicated (without systemic symptoms) or Complicated (systemic symptoms)? @ -complicated Side effects of treatment? @ -no Exacerbation, Progression, or Severe Exacerbation] @ -no Poses a threat to life or bodily function? @ -yes Reevaluation #5: 11/12/22 22:53 Differential Abdominal Pain Men: Appendicitis, cholecystitis, diverticulosis, ischemic bowel, pancreatitis, hepatitis, UTI, gastroenteritis, AAA, incarcerated hernia, bowel obstruction, constipation, inflammatory bowel, hepatitis, peptic ulcer disease, splenic infarction, perforated viscus, testicular torsion, this is not meant to be an all-inclusive list - Consultations Consultation #1: Spoke with sound who agrees to admit this patient Medical Decision Making - Medical Decision Making 66 male will be admitted for evaluation of severe uncontrolled abdominal pain. Patient be admitted for pain control. Positive nausea no vomiting no fevers symptom management and elevated lactic acid. - Lab Data Result diagrams: 11/12/22 21:19 11/12/22 21:19 Lab Results 11/12/22 11/12/22 11/12/22 Range/Units 00:11 21:19 21:19 WBC 5.7 (3.8-10.6) k/uL RBC 4.04 L (4.30-5.90) m/uL Hgb 13.1 (13.0-17.5) gm/dL Hct 41.3 (39.0-53.0) % MCV 102.2 H (80.0-100.0) fL MCH 32.3 (25.0-35.0) pg MCHC 31.6 (31.0-37.0) g/dL RDW 14.0 (11.5-15.5) % Plt Count 408 (150-450) k/uL MPV 7.6 Neutrophils % 84 % Lymphocytes % 10 % Monocytes % 4 % Eosinophils % 1 % Basophils % 0 % Neutrophils # 4.8 (1.3-7.7) k/uL Lymphocytes # 0.6 L (1.0-4.8) k/uL Monocytes # 0.2 (0-1.0) k/uL Eosinophils # 0.1 (0-0.7) k/uL Basophils # 0.0 (0-0.2) k/uL Macrocytosis Slight PT 11.1 (9.0-12.0) sec INR 1.1 (<1.2) APTT 24.4 (22.0-30.0) sec Sodium (137-145) mmol/L Potassium (3.5-5.1) mmol/L Chloride (98-107) mmol/L Carbon Dioxide (22-30) mmol/L Anion Gap mmol/L BUN (9-20) mg/dL Creatinine (0.66-1.25) mg/dL Est GFR (CKD-EPI)AfAm (>60 ml/min/1.73 sqM) Est GFR (CKD-EPI)NonAf (>60 ml/min/1.73 sqM) Glucose (74-99) mg/dL Lactic Ac Sepsis Rflx Plasma Lactic Acid Cody 1.5 (0.7-2.0) mmol/L Calcium (8.4-10.2) mg/dL Total Bilirubin (0.2-1.3) mg/dL AST (17-59) U/L ALT (4-49) U/L Alkaline Phosphatase (38-126) U/L Troponin I (0.000-0.034) ng/mL Total Protein (6.3-8.2) g/dL Albumin (3.5-5.0) g/dL Amylase (30-110) U/L Lipase (23-300) U/L Blood Type Blood Type Recheck Bld Type Recheck Status Antibody Screen Spec Expiration Date 11/12/22 11/12/22 11/12/22 Range/Units 21:19 21:19 21:19 WBC (3.8-10.6) k/uL RBC (4.30-5.90) m/uL Hgb (13.0-17.5) gm/dL Hct (39.0-53.0) % MCV (80.0-100.0) fL MCH (25.0-35.0) pg MCHC (31.0-37.0) g/dL RDW (11.5-15.5) % Plt Count (150-450) k/uL MPV Neutrophils % % Lymphocytes % % Monocytes % % Eosinophils % % Basophils % % Neutrophils # (1.3-7.7) k/uL Lymphocytes # (1.0-4.8) k/uL Monocytes # (0-1.0) k/uL Eosinophils # (0-0.7) k/uL Basophils # (0-0.2) k/uL Macrocytosis PT (9.0-12.0) sec INR (<1.2) APTT (22.0-30.0) sec Sodium 142 (137-145) mmol/L Potassium 5.6 H (3.5-5.1) mmol/L Chloride 102 (98-107) mmol/L Carbon Dioxide 19 L (22-30) mmol/L Anion Gap 21 mmol/L BUN 38 H (9-20) mg/dL Creatinine 0.74 (0.66-1.25) mg/dL Est GFR (CKD-EPI)AfAm >90 (>60 ml/min/1.73 sqM) Est GFR (CKD-EPI)NonAf >90 (>60 ml/min/1.73 sqM) Glucose 150 H (74-99) mg/dL Lactic Ac Sepsis Rflx Plasma Lactic Acid Cody 5.0 H* (0.7-2.0) mmol/L Calcium 10.3 H (8.4-10.2) mg/dL Total Bilirubin 0.5 (0.2-1.3) mg/dL AST 100 H (17-59) U/L ALT 29 (4-49) U/L Alkaline Phosphatase 275 H (38-126) U/L Troponin I <0.012 (0.000-0.034) ng/mL Total Protein 9.0 H (6.3-8.2) g/dL Albumin 5.2 H (3.5-5.0) g/dL Amylase 223 H (30-110) U/L Lipase 402 H (23-300) U/L Blood Type Blood Type Recheck Bld Type Recheck Status Antibody Screen Spec Expiration Date 11/12/22 11/12/22 Range/Units 21:19 21:54 WBC (3.8-10.6) k/uL RBC (4.30-5.90) m/uL Hgb (13.0-17.5) gm/dL Hct (39.0-53.0) % MCV (80.0-100.0) fL MCH (25.0-35.0) pg MCHC (31.0-37.0) g/dL RDW (11.5-15.5) % Plt Count (150-450) k/uL MPV Neutrophils % % Lymphocytes % % Monocytes % % Eosinophils % % Basophils % % Neutrophils # (1.3-7.7) k/uL Lymphocytes # (1.0-4.8) k/uL Monocytes # (0-1.0) k/uL Eosinophils # (0-0.7) k/uL Basophils # (0-0.2) k/uL Macrocytosis PT (9.0-12.0) sec INR (<1.2) APTT (22.0-30.0) sec Sodium (137-145) mmol/L Potassium (3.5-5.1) mmol/L Chloride (98-107) mmol/L Carbon Dioxide (22-30) mmol/L Anion Gap mmol/L BUN (9-20) mg/dL Creatinine (0.66-1.25) mg/dL Est GFR (CKD-EPI)AfAm (>60 ml/min/1.73 sqM) Est GFR (CKD-EPI)NonAf (>60 ml/min/1.73 sqM) Glucose (74-99) mg/dL Lactic Ac Sepsis Rflx Y Plasma Lactic Acid Cody (0.7-2.0) mmol/L Calcium (8.4-10.2) mg/dL Total Bilirubin (0.2-1.3) mg/dL AST (17-59) U/L ALT (4-49) U/L Alkaline Phosphatase (38-126) U/L Troponin I (0.000-0.034) ng/mL Total Protein (6.3-8.2) g/dL Albumin (3.5-5.0) g/dL Amylase (30-110) U/L Lipase (23-300) U/L Blood Type A Positive Blood Type Recheck A Pos Bld Type Recheck Status No Antibody Screen NEGATIVE Spec Expiration Date 11/15/20222318 - EKG Data -: EKG Interpreted by Me (EKG is paced 60 ND 188 QRS 147 QTc 444) - Radiology Data Radiology results: report reviewed (Ultrasound gallbladder shows metastasis, CT of the abdomen and pelvis shows metastasis unchanged from prior no significant new acute findings), image reviewed Disposition Clinical Impression: Lactic acidosis, Liver mass, Hypomagnesemia, Dehydration, Weakness, Hyponatremia syndrome, Abdominal pain Disposition: ADMITTED IP TO THIS HOSP Condition: Fair Is patient prescribed a controlled substance at d/c from ED?: No Referrals: Luis Manuel Loaiza MD [Primary Care Provider] - 1-2 days Time of Disposition: 01:30
[2022-11-12] MEDS: SODIUM CHLORIDE 0.9% 1,000 ML IV SCH (22:05)
--- NOTE | 2022-11-12 23:06 | US ---
EXAMINATION TYPE: US gallbladder DATE OF EXAM: 11/12/2022 COMPARISON: 10/01/22 CLINICAL INDICATION: Male, 66 years old with history of pain; pain. Multiple masses on liver TECHNIQUE: Multiple sonographic images of the right upper quadrant are obtained. 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 Largest is in rt lobe measuring 13.1 x 9.0 x 14.1cm Gallbladder: wnl Evidence for sonographic Oneill's sign: No CBD: wnl Right Kidney: Dilated renal pelvis IMPRESSION: 1. Hepatic masses may reflect metastatic disease. 2. Mass lesion in the region of the pancreatic head.
--- NOTE | 2022-11-13 01:08 | CT ---
EXAM: CT Abdomen and Pelvis With Intravenous Contrast CLINICAL HISTORY: ITS.REASON CT Reason: pain TECHNIQUE: Axial computed tomography images of the abdomen and pelvis with intravenous contrast. CTDI is 20 mGy and DLP is 967.2 mGy-cm. This CT exam was performed using one or more of the following dose reduction techniques: automated exposure control, adjustment of the mA and/or kV according to patient size, and/or use of iterative reconstruction technique. COMPARISON: 10/02/2022 FINDINGS: ABDOMEN: Liver: Multiple masses in the liver. Largest centered within segment 6 and 7 measuring 12.4 x 9.2 cm. Mass within segment 7 measuring 9.2 x 5. 6 cm. Mass within segment 3 measuring 8.4 x 7.1 cm. These have all increased in size. Gallbladder and bile ducts: Unremarkable. Pancreas: Low-attenuation lesion in the pancreatic neck is unchanged measuring 1.9 x 1.4 cm. Spleen: Unremarkable. Adrenals: Unremarkable. Kidneys and ureters: Horseshoe kidney. No obstructive uropathy. Stomach and bowel: Unremarkable. PELVIS: Appendix: No findings to suggest acute appendicitis. Bladder: Unremarkable. Reproductive: Prostatomegaly. ABDOMEN and PELVIS: Intraperitoneal space: Unremarkable. No free air. No significant fluid collection. Bones/joints: Left hip arthroplasty. Soft tissues: Unremarkable. Vasculature: Unremarkable. Lymph nodes: Unremarkable. IMPRESSION: 1. Enlarging masses within the liver consistent with metastatic disease progression. 2. Unchanged lesion in the pancreatic neck. 3. Horseshoe kidney. No obstructive uropathy. 4. Prostatomegaly.
[2022-11-13] MEDS ORDERED: ONDANSETRON 4 MG/2 ML VIAL IVP PRN ×2 (01:52→18:27)
[2022-11-13] MEDS ORDERED: NALOXONE 0.4 MG/ML 1 ML VIAL IV PRN (01:52)
[2022-11-13] MEDS: SODIUM CHLORIDE 0.9% 1,000 ML IV SCH ×5 (01:55→20:12)
[2022-11-13 02:10] LABS: Basophils % (A) 0 %; Eosinophils # (A) 0.1 k/uL (0-0.7); Eosinophils % (A) 1 %; HCT 34.2 % (39.0-53.0); HGB 10.9 gm/dL (13.0-17.5); Lymphocytes # (A) 0.5 k/uL (1.0-4.8); Lymphocytes % (A) 12 %; MCH 32.2 pg (25.0-35.0); MCHC 31.8 g/dL (31.0-37.0); MCV 101.3 fL (80.0-100.0); Macrocytosis Slight; Mean Platelet Volume 7.6; Monocytes # (A) 0.2 k/uL (0-1.0); Monocytes % (A) 6 %; Neutrophils # (A) 3.3 k/uL (1.3-7.7); Neutrophils % (A) 80 %; Platelet Count 294 k/uL (150-450); RBC 3.37 m/uL (4.30-5.90); RDW 14.1 % (11.5-15.5); WBC 4.1 k/uL (3.8-10.6)
[2022-11-13] MEDS ORDERED: DEXTROSE 50% SYRINGE 50 ML IVP PRN ×2 (02:17)
--- NOTE | 2022-11-13 02:32 | P.HPIM ---
History of Present Illness H&P Date: 11/12/22 Chief Complaint: abd pain , N/V 66 year old male with DM, hypertension he is coming in due to intractable nausea and vomiting, along with vague diffuse abd pain , that has been going on and progressing over the past few months. he had multiple tests done , and found that he has a mass related to the liver, but biopsies failed to identify proper diagnosis. he reports significant iunintentional weight loss, poor apetite, and repeated nausea and vomiting. he admits to quitting smoking 1 year ago, dad diet of some sort of pancreatic cancer. he deneis GI bleeding or hematuria he does report pale looking stool , but denies any dark urine, no recent travel or sick contacts, no recent blood transfusion review of systems Pertinent positives as noted in HPI. All other systems were reviewed and are negative on exam Constitutional: No acute distress, conversant, pleasant Eyes: Anicteric sclerae, moist conjunctiva, clinical pallor Pupils equal round reactive to light ENMT: NC/AT Oropharynx clear, no erythema, or exudates Neck: Supple, no masses, or JVD No carotid bruits No thyromegaly Lungs: Clear to auscultation Clear to percussion Normal respiratory effort, no accessory muscle use Cardiovascular: Heart regular in rate and rhythm, No murmurs, gallops, or rubs No peripheral edema Abdominal: Soft, palpable device in the LLQ , pain pump Nontender, no guarding, rebound or rigidity Abdomen moving with respiration Normoactive bowel sounds No hepatomegaly, No splenomegaly No palpable mass No abdominal wall hernia noted Skin: Normal temperature, tone, texture, turgor Extremities: No digital cyanosis No clubbing Pedal pulses intact and symmetrical Radial pulses intact and symmetrical No calf tenderness Psychiatric: Alert and oriented to person, place and time Appropriate affect Neuro Muscles Strength 5/5 in all 4 extremities Sensation to light touch grossly present throughout Cranial nerves II-XII grossly intact Lymphatics: no palpable cervical or supraclavicular lymph nodes Past Medical History Past Medical History: Atrial Fibrillation, Coronary Artery Disease (CAD), COPD, Diabetes Mellitus, Hyperlipidemia, Hypertension, Myocardial Infarction ([place]), Thyroid Disorder Additional Past Medical History / Comment(s): [place] 2019, hypothyroid Last Myocardial Infarction Date:: 2019 History of Any Multi-Drug Resistant Organisms: None Reported Past Surgical History: Joint Replacement, Pacemaker Additional Past Surgical History / Comment(s): pacemaker insertion, pain pump, left hip replacement Past Anesthesia/Blood Transfusion Reactions: No Reported Reaction Type of Cardiac Device: Permanent Pacemaker Device Placement Date:: 2018 Past Psychological History: Anxiety, Bipolar, Depression Past Drug Use History: None Reported - Past Family History Father Family Medical History: Cancer, COPD, Hearing Disorder / Deafness Mother Family Medical History: COPD Medications and Allergies Home Medications Medication Instructions Recorded Confirmed Type Diltiazem Cd [Cardizem CD] 180 mg PO DAILY 07/14/21 11/12/22 History Docusate [Colace] 100 mg PO BID 07/14/21 11/12/22 History Levothyroxine Sodium [Synthroid] 75 mcg PO DAILY 07/14/21 11/12/22 History Losartan Potassium 100 mg PO DAILY 07/14/21 11/12/22 History QUEtiapine [SEROquel] 400 mg PO HS 07/14/21 11/12/22 History buPROPion HCL [Wellbutrin XL] 300 mg PO DAILY 07/14/21 11/12/22 History buPROPion XL [Wellbutrin XL] 150 mg PO DAILY 07/14/21 11/12/22 History carBAMazepine [TEGretol] 400 mg PO BID 07/14/21 11/12/22 History clonazePAM [KlonoPIN] 1 mg PO TID 07/14/21 11/12/22 History Venlafaxine HCl [Effexor] 100 mg PO TID 07/15/21 11/12/22 History Butalbital/Acetaminophen 50-325mg 1 tab PO BID PRN 10/01/22 11/12/22 History Insulin Aspart Prot/Insuln Asp 1 - 15 units SQ AC-BID PRN 10/01/22 11/12/22 History [Relion Novolog Mix 70-30 Flxpn] Relaxium-Sleep Otc 2 cap PO HS 10/01/22 11/12/22 History Atorvastatin [Lipitor] 40 mg PO DAILY 10/15/22 11/12/22 History Morphine Pain Pump 1 dose INTRATHECA DIRECTED 10/15/22 11/12/22 History metFORMIN HCL [Glucophage] 1,000 mg PO BID 10/15/22 11/12/22 History HYDROcodone/APAP 10-325MG [[place] 1 tab PO Q4HR PRN 11/12/22 11/12/22 History 10-325] Allergies Allergy/AdvReac Type Severity Reaction Status Date / Time Penicillins Allergy Unknown Verified 11/12/22 22:33 Physical Exam Vitals: Vital Signs Temp Pulse Resp BP Pulse Ox 11/13/22 02:21 98.4 F 79 18 112/74 98 11/13/22 01:00 98.2 F 69 16 156/86 96 11/13/22 00:00 72 16 158/83 98 11/12/22 21:05 98.4 F 70 20 152/87 100 Intake and Output 11/12/22 11/12/22 11/13/22 14:59 22:59 06:59 Other: Weight 71.668 kg Results CBC & Chem 7: 11/13/22 01:52 11/12/22 21:19 Labs: Abnormal Lab Results - Last 24 Hours (Table) 11/12/22 11/12/22 11/12/22 Range/Units 21:19 21:19 21:19 RBC 4.04 L (4.30-5.90) m/uL Hgb (13.0-17.5) gm/dL Hct (39.0-53.0) % MCV 102.2 H (80.0-100.0) fL Lymphocytes # 0.6 L (1.0-4.8) k/uL Potassium 5.6 H (3.5-5.1) mmol/L Carbon Dioxide 19 L (22-30) mmol/L BUN 38 H (9-20) mg/dL Glucose 150 H (74-99) mg/dL Plasma Lactic Acid Cody 5.0 H* (0.7-2.0) mmol/L Calcium 10.3 H (8.4-10.2) mg/dL AST 100 H (17-59) U/L Alkaline Phosphatase 275 H (38-126) U/L Total Protein 9.0 H (6.3-8.2) g/dL Albumin 5.2 H (3.5-5.0) g/dL Amylase 223 H (30-110) U/L Lipase 402 H (23-300) U/L 11/13/22 Range/Units 01:52 RBC 3.37 L (4.30-5.90) m/uL Hgb 10.9 L (13.0-17.5) gm/dL Hct 34.2 L (39.0-53.0) % MCV 101.3 H (80.0-100.0) fL Lymphocytes # 0.5 L (1.0-4.8) k/uL Potassium (3.5-5.1) mmol/L Carbon Dioxide (22-30) mmol/L BUN (9-20) mg/dL Glucose (74-99) mg/dL Plasma Lactic Acid Cody (0.7-2.0) mmol/L Calcium (8.4-10.2) mg/dL AST (17-59) U/L Alkaline Phosphatase (38-126) U/L Total Protein (6.3-8.2) g/dL Albumin (3.5-5.0) g/dL Amylase (30-110) U/L Lipase (23-300) U/L Assessment and Plan Assessment: 66 year old male with DM , hypertension , coming in for unintentional weight loose repeated nausea and vomiting , I discussed the case with ED doc, imaging showed liver lesions and pancreatic mass. I accepted the admission for symptoms control and evaluation by oncology service with anticipated length of stay < 2 midnights intractable nausea and vomiting symptomatic control with zofran 4 mg IVP q 8 hrs oncology eval GI eval possible pancreatic mass with liver mets CT abd reviewed showing enlarged masses in the liver ,and pancreatic neck mass patient reports pale stool , but not dark urine . this is concerning for obstructive hepatopancreatic duct lactic acidosis 5--> 1.5 resolved mild hyperkalemia 5.6 monitor repeat testing in AM mild hypercalcemia IVF hydration with normal saline repeat BMP in am hypertension resume losartan and cardizem DM insulin sliding scale hypothyroid resume levothyroxine check Ca 19-9, pancreatic cancer marker Hgb `13.1 unremarkable , denies Bleeding renal fucntion unremarkable bun 38 , cr 0.74 full code DVT PPX lovenox 40 mg daily sc
[2022-11-13] MEDS: HYDROcodone/APAP 10-325MG 1 EACH TAB PO PRN ×3 (02:52→20:09)
[2022-11-13] MEDS: NON FORMULARY DRUG (Morphine Pain Pump 1 DOSE) INJ SCH (02:53)
[2022-11-13] MEDS ORDERED: cloNIDine HCL 0.2 MG TAB PO STA (02:53)
[2022-11-13 04:23] LABS: ALT 23 U/L (4-49); AST 76 U/L (17-59); African American GFR (CKD) >90 (>60 ml/min/1.73 sqM); Albumin/Globulin Ratio 1.4; Alkaline Phosphatase 189 U/L (38-126); Anion Gap 12 mmol/L; Blood Urea Nitrogen 38 mg/dL (9-20); Calcium 9.1 mg/dL (8.4-10.2); Carbon Dioxide 19 mmol/L (22-30); Chloride 107 mmol/L (98-107); Globulin 2.9 g/dL; Glucose 94 mg/dL (74-99); Non-African American GFR(CKD) >90 (>60 ml/min/1.73 sqM); Potassium 5.6 mmol/L (3.5-5.1); Sodium 138 mmol/L (137-145); Total Bilirubin 0.4 mg/dL (0.2-1.3); Total Protein 6.9 g/dL (6.3-8.2)
[2022-11-13 06:04] LABS: Glucose,Whole Blood 92 mg/dL (70-110)
[2022-11-13] MEDS: INSULIN ASPART (NovoLOG) 100 UNIT/ML VIAL SQ SCH ×4 (06:16→22:35)
[2022-11-13] MEDS: LEVOTHYROXINE 75 MCG TAB PO SCH (06:18)
[2022-11-13 08:48] LABS: Amylase 156 U/L (30-110); Lipase 199 U/L (23-300)
[2022-11-13] MEDS: ATORVASTATIN 40 MG TAB PO SCH (09:05)
[2022-11-13] MEDS: LOSARTAN 50 MG TAB PO SCH (09:05)
[2022-11-13] MEDS: clonazePAM 1 MG TAB PO SCH ×3 (09:05→22:36)
[2022-11-13] MEDS: ENOXAPARIN 40 MG/0.4 ML SYRINGE SQ SCH (09:05)
[2022-11-13] MEDS: carBAMazepine 200 MG TAB PO SCH ×2 (09:06→20:10)
[2022-11-13] MEDS: DILTIAZEM CD 180 MG CAP.ER.24H PO SCH (09:06)
[2022-11-13] MEDS: buPROPion XL 300 MG TAB.ER.24H PO SCH (09:06)
[2022-11-13] MEDS: VENLAFAXINE HCL 50 MG TAB PO SCH ×3 (09:06→22:36)
[2022-11-13 12:14] LABS: Glucose,Whole Blood 100 mg/dL (70-110)
--- NOTE | 2022-11-13 14:33 | P.CONS ---
History of Present Illness - Reason for Consult Consult date: 11/13/22 Pancreatic mass Requesting physician: Corrie Gallegos - Chief Complaint Abdominal pain - History of Present Illness This is 66-year-old male relatively recently diagnosed with liver lesions in September of this year. Gastroenterology was consulted for patient at that time. No previous history of liver disease, past medical history includes atrial fibrillation, coronary artery disease, thyroid disorder, hypertension and hyperlipidemia. The patient followed up with hematology/oncology as an outpatient and underwent liver biopsy which was nondiagnostic. Patient states that he is supposed to have a repeat biopsy done he believes that they were going to have him have a done at [facility]. He came back in with complaints of abdominal pain, denies any nausea or vomiting. Patient did have a PET scan done on 10/19/2022 reporting 3 observation within the liver with Peripheral embolic activity. Largest in the right hepatic lobe measuring up to 12 cm. Left upper lobe 5 mm pulmonary nodule and area within the pancreatic head does not demonstrate increased FDG activity likely represents a cyst. Admitting labs WBC 5.7 hemoglobin 13 platelet count 408,000 INR 1.1 sodium 142 potassium 5.6 BUN 38 creatinine 0.7 total bilirubin 0.5 AST 100 ALT 29 alkaline phosphatase taste to 75 amylase 223 lipase 402 Review of Systems REVIEW OF SYSTEMS: CARDIOPULMONARY: No chest pain or shortness of breath. Gastrointestinal: Abdominal pain right upper quadrant. No nausea or vomiting. No hematemesis, coffee-ground emesis. No rectal bleeding, or melena. GENITOURINARY: No dysuria or hematuria. MUSCULOSKELETAL: Reports normal range of motion., Joint pain. SKIN: No rashes. No jaundice. ENDOCRINE: No chills, fevers. No excessive weight gain or loss. No polydipsia or polyuria. PSYCHIATRIC: Unremarkable. NEUROLOGY: No change in mental status. Denies dizziness, headache. ENT: Vision unremarkable. CONSTITUTIONAL: No recent weight loss. No fever, chills, night sweats. Past Medical History Past Medical History: Atrial Fibrillation, Coronary Artery Disease (CAD), COPD, Diabetes Mellitus, Hyperlipidemia, Hypertension, Myocardial Infarction ([place]), Thyroid Disorder Additional Past Medical History / Comment(s): [place] 2019, hypothyroid Last Myocardial Infarction Date:: 2019 History of Any Multi-Drug Resistant Organisms: None Reported Past Surgical History: Joint Replacement, Pacemaker Additional Past Surgical History / Comment(s): pacemaker insertion, pain pump, left hip replacement Past Anesthesia/Blood Transfusion Reactions: No Reported Reaction Type of Cardiac Device: Permanent Pacemaker Device Placement Date:: 2018 Past Psychological History: Anxiety, Bipolar, Depression Past Drug Use History: None Reported - Past Family History Father Family Medical History: Cancer, COPD, Hearing Disorder / Deafness Mother Family Medical History: COPD Medications and Allergies Home Medications Medication Instructions Recorded Confirmed Type Diltiazem Cd [Cardizem CD] 180 mg PO DAILY 07/14/21 11/12/22 History Docusate [Colace] 100 mg PO BID 07/14/21 11/12/22 History Levothyroxine Sodium [Synthroid] 75 mcg PO DAILY 07/14/21 11/12/22 History Losartan Potassium 100 mg PO DAILY 07/14/21 11/12/22 History QUEtiapine [SEROquel] 400 mg PO HS 07/14/21 11/12/22 History buPROPion HCL [Wellbutrin XL] 300 mg PO DAILY 07/14/21 11/12/22 History buPROPion XL [Wellbutrin XL] 150 mg PO DAILY 07/14/21 11/12/22 History carBAMazepine [TEGretol] 400 mg PO BID 07/14/21 11/12/22 History clonazePAM [KlonoPIN] 1 mg PO TID 07/14/21 11/12/22 History Venlafaxine HCl [Effexor] 100 mg PO TID 07/15/21 11/12/22 History Butalbital/Acetaminophen 50-325mg 1 tab PO BID PRN 10/01/22 11/12/22 History Insulin Aspart Prot/Insuln Asp 1 - 15 units SQ AC-BID PRN 10/01/22 11/12/22 History [Relion Novolog Mix 70-30 Flxpn] Relaxium-Sleep Otc 2 cap PO HS 10/01/22 11/12/22 History Atorvastatin [Lipitor] 40 mg PO DAILY 10/15/22 11/12/22 History Morphine Pain Pump 1 dose INTRATHECA DIRECTED 10/15/22 11/12/22 History metFORMIN HCL [Glucophage] 1,000 mg PO BID 10/15/22 11/12/22 History HYDROcodone/APAP 10-325MG [[place] 1 tab PO Q4HR PRN 11/12/22 11/12/22 History 10-325] Allergies Allergy/AdvReac Type Severity Reaction Status Date / Time Penicillins Allergy Unknown Verified 11/12/22 22:33 Physical Exam Vitals: Vital Signs Temp Pulse Pulse Resp BP BP Pulse Ox 11/13/22 06:50 97.5 F L 62 16 112/65 95 11/13/22 02:31 97.7 F 65 17 146/82 98 11/13/22 02:21 98.4 F 79 18 112/74 98 11/13/22 01:00 98.2 F 69 16 156/86 96 11/13/22 00:00 72 16 158/83 98 11/12/22 21:05 98.4 F 70 20 152/87 100 Intake and Output 11/12/22 11/13/22 11/13/22 22:59 06:59 14:59 Intake Total 200 Balance 200 Intake: Oral 200 Other: Voiding Method Toilet Weight 71.668 kg 71.668 kg General appearance: The patient is alert, oriented, appears in no acute distress. HET: Head is normocephalic and atraumatic. Conjunctiva pink. Sclera anicteric. Neck: Supple without lymphadenopathy. Trachea midline. Heart: S1 S2. Regular rate and rhythm. Lungs: Clear to auscultation. Abdomen: Soft, tenderness right upper quadrant, nondistended with bowel sounds. No guarding or rigidity. Skin: No rashes. No jaundice. Extremities: Normal skin color and turgor. No pedal edema. Neurological: No focal deficits. Alert and oriented x3. Results CBC & Chem 7: 11/13/22 01:52 11/13/22 03:17 Labs: Abnormal Lab Results - Last 24 Hours (Table) 11/12/22 11/12/22 11/12/22 Range/Units 21:19 21:19 21:19 RBC 4.04 L (4.30-5.90) m/uL Hgb (13.0-17.5) gm/dL Hct (39.0-53.0) % MCV 102.2 H (80.0-100.0) fL Lymphocytes # 0.6 L (1.0-4.8) k/uL Potassium 5.6 H (3.5-5.1) mmol/L Carbon Dioxide 19 L (22-30) mmol/L BUN 38 H (9-20) mg/dL Creatinine (0.66-1.25) mg/dL Glucose 150 H (74-99) mg/dL Plasma Lactic Acid Cody 5.0 H* (0.7-2.0) mmol/L Calcium 10.3 H (8.4-10.2) mg/dL AST 100 H (17-59) U/L Alkaline Phosphatase 275 H (38-126) U/L Total Protein 9.0 H (6.3-8.2) g/dL Albumin 5.2 H (3.5-5.0) g/dL Amylase 223 H (30-110) U/L Lipase 402 H (23-300) U/L 11/13/22 11/13/22 11/13/22 Range/Units 01:52 03:17 03:17 RBC 3.37 L (4.30-5.90) m/uL Hgb 10.9 L (13.0-17.5) gm/dL Hct 34.2 L (39.0-53.0) % MCV 101.3 H (80.0-100.0) fL Lymphocytes # 0.5 L (1.0-4.8) k/uL Potassium 5.6 H (3.5-5.1) mmol/L Carbon Dioxide 19 L (22-30) mmol/L BUN 38 H (9-20) mg/dL Creatinine 0.60 L (0.66-1.25) mg/dL Glucose (74-99) mg/dL Plasma Lactic Acid Cody (0.7-2.0) mmol/L Calcium (8.4-10.2) mg/dL AST 76 H (17-59) U/L Alkaline Phosphatase 189 H (38-126) U/L Total Protein (6.3-8.2) g/dL Albumin (3.5-5.0) g/dL Amylase 156 H (30-110) U/L Lipase (23-300) U/L Assessment and Plan (1) Liver mass Narrative/Plan: This 66-year-old recently admitted to the hospital with abdominal pain and found to have multiple large liver masses. Patient following with oncology in the outpatient setting underwent PET scan as well as liver biopsy. Unfortunately liver biopsy was nondiagnostic. At this point sounds like patient is going to have follow-up with oncology for repeat liver biopsy, which may be sent to a tertiary center. There is no further workup from gastroenterology. Continue symptomatic and supportive care. Current Visit: Yes Status: Acute Priority: High Code(s): R16.0 - HEPATOMEGALY, NOT ELSEWHERE CLASSIFIED SNOMED Code(s): 301322161 (2) Abdominal pain Current Visit: Yes Status: Acute Code(s): R10.9 - UNSPECIFIED ABDOMINAL PAIN SNOMED Code(s): 17354125 Plan: 1. Continue symptomatic and supportive care 2. Continue with pain management 3. Continue with recommendations from oncology 4. No further workup or intervention indicated by gastroenterology Thank you for this consultation, we will sign off at this time. Dr. Esteban Sahu I agree with the dictator's note, documented as a scribe by Leslie Simeon.
--- NOTE | 2022-11-13 15:25 | P.PN ---
Subjective Progress Note Date: 11/13/22 Hospital course: Patient is a very pleasant 66-year-old male with a past medical history of CAD with pacemaker, hypertension, hyperlipidemia, insulin-dependent diabetes mellitus, hypothyroidism, anxiety, depression, and chronic pain with pain pump. He presented to the hospital overnight secondary to concerns of unintentional weight loss resulting from intractable nausea and vomiting. Patient was recently diagnosed with lesions of his liver in September 2022 and underwent liver biopsy which then resulted as nondiagnostic. Patient is scheduled to undergo repeat biopsy at [facility] however he presented to the emergency department overnight with a chief complaint of intractable nausea and vomiting. He underwent full evaluation in the emergency department. Gallbladder ultrasound completed revealing hepatic masses with largest measuring 13.1 x 9.0 x 14.1 cm concerning for metastatic disease and mass/lesion in the region of the pancreatic head measuring 1.8 x 1.[address] abdomen and pelvis with IV contrast done completed showing enlarging masses within the liver consistent with metastatic disease progression and unchanged lesion in the pancreatic neck, prostatomegaly, and a horseshoe kidney. Labs completed and reviewed. CBC showing macrocytic anemia with hemoglobin of 10.9. BMP showing mild hyperkalemia with potassium of 5.6, calcium 10.3, elevated BUN of 38, and creatinine of 0.60. Liver profile showing elevated AST of 76 and alkaline phosphatase of 189. Amylase elevated at 223 with lipase of 402. Tumor marker AFP less than 3.00 and CA 19-9 was 20.1. Patient admitted under our services with consultation to gastroenterology and oncology. Physical exam: Vital signs reviewed and stable. General: Nontoxic, no distress and appears stated age. Derm: Skin warm and dry, normal coloration for ethnicity. Head: Atraumatic, normocephalic and symmetric. Eyes: EOMs intact, no lid lag, and anicteric sclera Mouth: no lip lesions, mucus membranes moist Cardiovascular: regular rate and rhythm with normal S1S2, no murmur, positive posterior tibial pulses bilaterally, and cap refill < 2 seconds. Lungs: Respirations even, regular, and unlabored on room air. Lungs CTA bilaterally, no rhonchi, no rales, no wheezing, and no accessory muscle usage. Abdominal: soft, tenderness to palpation in right upper quadrant,, no guarding, no appreciable organomegaly Ext: ROM intact. No gross muscle atrophy, no edema, no contractures Neuro: Speech clear, face symmetrical and CN II-XII grossly intact with no noted focal neuro deficits Psych: Alert and oriented to person, place, time, and situation. Appropriate and pleasant affect. Assessment and Plan of Care: Abdominal pain, possibly secondary to metastatic process with concerns of pancreatic and liver masses Intractable nausea and vomiting Anorexia with unintentional weight loss Elevated liver enzymes Elevated amylase and lipase -Symptomatic care and pain management. -Continue gentle IV fluid hydration with 0.9% normal saline at 100 mL per hour. -CMP showing continued elevation but slight improvement of liver enzymes with AST of 76 and alkaline phosphatase of 189 from previous AST 100 and alkaline phosphatase of 275. Hyperkalemia and hypercalcemia -Repeat morning labs reviewed. Potassium remains unchanged at 5.6 and hypercalcemia improving from 10.3 down to 9.1. -Continue gentle IV fluid hydration with 0.9% normal saline at 100 mL per hour. Lactic acidosis, resolved Hypertension -Monitor vital signs and continue daily medication regimen with Cardizem 180 mg daily and Cozaar 100 mg daily, Hypothyroidism -Continue daily medication regimen with Synthroid 75 g daily. Insulin-dependent diabetes mellitus -Continue glycemic protocol with NovoLog sliding scale. Blood glucose levels over the past 24 hours reviewed and have ranged 92-130. Anxiety and depression Continue daily medication regimen with Wellbutrin 450 mg daily, Tegretol 400 mg twice daily, Klonopin 1 mg 3 times daily, Seroquel 400 mg nightly, and Effexor 100 mg 3 times daily. CODE STATUS: Full code DVT prophylaxis: Lovenox Discussed with: Patient and RN Anticipated discharge date: Clinical course to determine Anticipated discharge place: Home Patient was seen independently by Nurse Pracitioner. This document was prepared using [employer] dictation software. Please allow for errors in hardware designer, while rare they do occur. I reviewed the documentation as provided by the CHARLOTTE above, who is the original author of this note. I agree with the documented assessment and plan, with the following changes: none Objective - Vital Signs Vital signs: Vital Signs Temp 97.5 F L 11/13/22 06:50 Pulse 62 11/13/22 06:50 Resp 16 11/13/22 06:50 BP 112/65 11/13/22 06:50 Pulse Ox 95 11/13/22 06:50 FiO2 Intake & Output 11/12/22 11/13/22 11/13/22 18:59 06:59 18:59 Intake Total 200 Balance 200 Weight 71.668 kg Intake: Oral 200 Other: Voiding Method Toilet - Labs CBC & Chem 7: 11/14/22 06:06 11/14/22 06:06 Labs: Abnormal Lab Results - Last 24 Hours (Table) 11/12/22 11/12/22 11/12/22 Range/Units 21:19 21:19 21:19 RBC 4.04 L (4.30-5.90) m/uL Hgb (13.0-17.5) gm/dL Hct (39.0-53.0) % MCV 102.2 H (80.0-100.0) fL Lymphocytes # 0.6 L (1.0-4.8) k/uL Potassium 5.6 H (3.5-5.1) mmol/L Carbon Dioxide 19 L (22-30) mmol/L BUN 38 H (9-20) mg/dL Creatinine (0.66-1.25) mg/dL Glucose 150 H (74-99) mg/dL Plasma Lactic Acid Cody 5.0 H* (0.7-2.0) mmol/L Calcium 10.3 H (8.4-10.2) mg/dL AST 100 H (17-59) U/L Alkaline Phosphatase 275 H (38-126) U/L Total Protein 9.0 H (6.3-8.2) g/dL Albumin 5.2 H (3.5-5.0) g/dL Amylase 223 H (30-110) U/L Lipase 402 H (23-300) U/L 11/13/22 11/13/22 11/13/22 Range/Units 01:52 03:17 03:17 RBC 3.37 L (4.30-5.90) m/uL Hgb 10.9 L (13.0-17.5) gm/dL Hct 34.2 L (39.0-53.0) % MCV 101.3 H (80.0-100.0) fL Lymphocytes # 0.5 L (1.0-4.8) k/uL Potassium 5.6 H (3.5-5.1) mmol/L Carbon Dioxide 19 L (22-30) mmol/L BUN 38 H (9-20) mg/dL Creatinine 0.60 L (0.66-1.25) mg/dL Glucose (74-99) mg/dL Plasma Lactic Acid Cody (0.7-2.0) mmol/L Calcium (8.4-10.2) mg/dL AST 76 H (17-59) U/L Alkaline Phosphatase 189 H (38-126) U/L Total Protein (6.3-8.2) g/dL Albumin (3.5-5.0) g/dL Amylase 156 H (30-110) U/L Lipase (23-300) U/L
[2022-11-13] MEDS ORDERED: PROCHLORPERAZINE INJ 10 MG/2 ML VIAL IVP PRN ×2 (15:26→18:28)
[2022-11-13 17:33] LABS: Glucose,Whole Blood 130 mg/dL (70-110)
--- NOTE | 2022-11-13 18:25 | P.CONS ---
History of Present Illness - Reason for Consult Consult date: 11/13/22 pancreatic mass Requesting physician: Corrie Gallegos - Chief Complaint abd pain - History of Present Illness Mr. Varghese is a 66-year-old male PMH for bradycardia, status post pacemaker placement March 2021, chronic pain of the back and lower extremities with implantable pain pump who was initially seen in consultation at [facility] on 10/02/2022 for evaluation of the liver mass. He presented with c/o 2 to 3 months progressive malaise, unintentional et. loss of approximately 40 pounds, anorexia, and right upper quadrant/epigastric abdominal pain. CT AP 10/02/2022 noted at least 3 large hypoattenuating ill-defined bi-lobar hepatic lesions, favored to represent metastases, and a 1.9 cm ill-defined hypodense region within the pancreatic head/neck. CT chest 10/03/2022 noted 0.8 cm nodule in the periphery of the left upper lung field. CEA was elevated at 31.2 with CA 19-9 and AFP WNL. He was started on norco 10/325 for abd pain with reported improvement. PET/CT performed on 10/19/2022 noted enlarged right hepatic lobe measuring 12 x 8.2 cm with an SUV of 20.53, left hepatic lobe measuring 6.8 x 5.3 cm with an SUV 9.7, and superior right hepatic lobe measuring 4.6 x 4.1 cm with an SUV 9.9. There was a noted area within the pancreatic head with lower attenuation with no increased FDG activity. Left upper lobe pulmonary nodule measuring 5 mm was non-FDG avid. Based off these findings, CT-guided biopsy of the liver was obtained on 10/24/2022. Unfortunately, this revealed abundant necrotic tissue with focal crush artifact and was nondiagnostic for malignancy. Plans for on the biopsy were in process. Patient presents to the hospital with complaints of abdominal pain, persistent, progressive, pain medications no longer working, associated with vomiting, he denies constipation or diarrhea. He is not been able to eat much. CMP reviewed, liver enzymes and bilirubin not notably abnormal, CBC showing some mild, macrocytic anemia, nothing progressive compared to previous visits. Gallbladder ultrasound reporting hepatic masses as well as a mass lesion in the region of the pancreatic head. CT AP impression enlarging masses with the kenyetta er, horseshoe kidney, unchanged lesion in the pancreatic neck. Review of Systems 10 point review of systems is negative except as stated in HPI Past Medical History Past Medical History: Atrial Fibrillation, Coronary Artery Disease (CAD), COPD, Diabetes Mellitus, Hyperlipidemia, Hypertension, Myocardial Infarction ([place]), Thyroid Disorder Additional Past Medical History / Comment(s): [place] 2019, hypothyroid Last Myocardial Infarction Date:: 2018 History of Any Multi-Drug Resistant Organisms: None Reported Past Surgical History: Joint Replacement, Pacemaker Additional Past Surgical History / Comment(s): pacemaker insertion, pain pump, left hip replacement Past Anesthesia/Blood Transfusion Reactions: No Reported Reaction Type of Cardiac Device: Permanent Pacemaker Device Placement Date:: 2018 Past Psychological History: Anxiety, Bipolar, Depression Past Drug Use History: None Reported - Past Family History Father Family Medical History: Cancer, COPD, Hearing Disorder / Deafness Mother Family Medical History: COPD Medications and Allergies Home Medications Medication Instructions Recorded Confirmed Type Diltiazem Cd [Cardizem CD] 180 mg PO DAILY 07/14/21 11/12/22 History Docusate [Colace] 100 mg PO BID 07/14/21 11/12/22 History Levothyroxine Sodium [Synthroid] 75 mcg PO DAILY 07/14/21 11/12/22 History Losartan Potassium 100 mg PO DAILY 07/14/21 11/12/22 History QUEtiapine [SEROquel] 400 mg PO HS 07/14/21 11/12/22 History buPROPion HCL [Wellbutrin XL] 300 mg PO DAILY 07/14/21 11/12/22 History buPROPion XL [Wellbutrin XL] 150 mg PO DAILY 07/14/21 11/12/22 History carBAMazepine [TEGretol] 400 mg PO BID 07/14/21 11/12/22 History clonazePAM [KlonoPIN] 1 mg PO TID 07/14/21 11/12/22 History Venlafaxine HCl [Effexor] 100 mg PO TID 07/15/21 11/12/22 History Butalbital/Acetaminophen 50-325mg 1 tab PO BID PRN 10/01/22 11/12/22 History Insulin Aspart Prot/Insuln Asp 1 - 15 units SQ AC-BID PRN 10/01/22 11/12/22 History [Relion Novolog Mix 70-30 Flxpn] Relaxium-Sleep Otc 2 cap PO HS 10/01/22 11/12/22 History Atorvastatin [Lipitor] 40 mg PO DAILY 10/15/22 11/12/22 History Morphine Pain Pump 1 dose INTRATHECA DIRECTED 10/15/22 11/12/22 History metFORMIN HCL [Glucophage] 1,000 mg PO BID 10/15/22 11/12/22 History HYDROcodone/APAP 10-325MG [[place] 1 tab PO Q4HR PRN 11/12/22 11/12/22 History 10-325] Allergies Allergy/AdvReac Type Severity Reaction Status Date / Time Penicillins Allergy Unknown Verified 11/12/22 22:33 Physical Exam Vitals: Vital Signs Temp Pulse Pulse Resp BP BP Pulse Ox 11/13/22 06:50 97.5 F L 62 16 112/65 95 11/13/22 02:31 97.7 F 65 17 146/82 98 11/13/22 02:21 98.4 F 79 18 112/74 98 11/13/22 01:00 98.2 F 69 16 156/86 96 11/13/22 00:00 72 16 158/83 98 11/12/22 21:05 98.4 F 70 20 152/87 100 Intake and Output 11/12/22 11/13/22 11/13/22 22:59 06:59 14:59 Intake Total 200 Balance 200 Intake: Oral 200 Other: Voiding Method Toilet Weight 71.668 kg 71.668 kg - Constitutional General appearance: average body habitus, cooperative, no acute distress - EENT Eyes: anicteric sclerae, EOMI ENT: hearing grossly normal - Neck Neck: no lymphadenopathy - Respiratory Respiratory: bilateral: CTA - Cardiovascular Rhythm: regular Heart sounds: normal: S1, S2 Abnormal Heart Sounds: no systolic murmur, no diastolic murmur, no rub, no S3 Gallop, no S4 Gallop, no click, no other leg Peripheral Edema: bilateral: None - Gastrointestinal General gastrointestinal: no absent bowel sounds, no decreased bowel sounds, no distended, no hepatomegaly, no hyperactive bowel sounds, normal bowel sounds, no organomegaly, no rigid, no scaphoid, soft, no splenomegaly, no tenderness, no umbilical hernia, no ventral hernia - Integumentary Integumentary: normal - Neurologic Neurologic: CNII-XII intact - Musculoskeletal Musculoskeletal: strength equal bilaterally - Psychiatric Psychiatric: A&O x's 3, appropriate affect, intact judgment & insight Results CBC & Chem 7: 11/13/22 01:52 11/13/22 03:17 Labs: Abnormal Lab Results - Last 24 Hours (Table) 11/12/22 11/12/22 11/12/22 Range/Units 21:19 21:19 21:19 RBC 4.04 L (4.30-5.90) m/uL Hgb (13.0-17.5) gm/dL Hct (39.0-53.0) % MCV 102.2 H (80.0-100.0) fL Lymphocytes # 0.6 L (1.0-4.8) k/uL Potassium 5.6 H (3.5-5.1) mmol/L Carbon Dioxide 19 L (22-30) mmol/L BUN 38 H (9-20) mg/dL Creatinine (0.66-1.25) mg/dL Glucose 150 H (74-99) mg/dL Plasma Lactic Acid Cody 5.0 H* (0.7-2.0) mmol/L Calcium 10.3 H (8.4-10.2) mg/dL AST 100 H (17-59) U/L Alkaline Phosphatase 275 H (38-126) U/L Total Protein 9.0 H (6.3-8.2) g/dL Albumin 5.2 H (3.5-5.0) g/dL Amylase 223 H (30-110) U/L Lipase 402 H (23-300) U/L 11/13/22 11/13/22 11/13/22 Range/Units 01:52 03:17 03:17 RBC 3.37 L (4.30-5.90) m/uL Hgb 10.9 L (13.0-17.5) gm/dL Hct 34.2 L (39.0-53.0) % MCV 101.3 H (80.0-100.0) fL Lymphocytes # 0.5 L (1.0-4.8) k/uL Potassium 5.6 H (3.5-5.1) mmol/L Carbon Dioxide 19 L (22-30) mmol/L BUN 38 H (9-20) mg/dL Creatinine 0.60 L (0.66-1.25) mg/dL Glucose (74-99) mg/dL Plasma Lactic Acid Cody (0.7-2.0) mmol/L Calcium (8.4-10.2) mg/dL AST 76 H (17-59) U/L Alkaline Phosphatase 189 H (38-126) U/L Total Protein (6.3-8.2) g/dL Albumin (3.5-5.0) g/dL Amylase 156 H (30-110) U/L Lipase (23-300) U/L Comments: Gallbladder ultrasound report reviewed CT scan - abdomen: report reviewed CT scan - pelvis: report reviewed US - abdomen: report reviewed Assessment and Plan (1) Abdominal pain Current Visit: Yes Status: Acute Priority: High Code(s): R10.9 - UNSPECIFIED ABDOMINAL PAIN SNOMED Code(s): 76494194 (2) Pancreatic mass Current Visit: Yes Status: Acute Priority: High Code(s): K86.89 - OTHER SPECIFIED DISEASES OF PANCREAS SNOMED Code(s): 931445401 (3) Liver mass Current Visit: Yes Status: Acute Priority: High Code(s): R16.0 - HEPATOMEGALY, NOT ELSEWHERE CLASSIFIED SNOMED Code(s): 717781204 Plan: Abdominal pain -Patient has a pain pump for chronic pain. We have requested information from pain management so that we can supplement pain control appropriately -Pain medications ordered, adjusted -Medications for prevention of narcotic-induced constipation ordered -Supportive medications for prevention/treatment of nausea Liver mass, pancreatic head mass -previous liver biopsy was nondiagnostic -Plans for biopsy outpatient have already been scheduled attests: I seen and examined patient, performed H&P, developed impression and plan of care. Discussed with dictator. Agree with documentation, dictated as a scribe. Time with Patient: Greater than 30
[2022-11-13] MEDS ORDERED: MAGNESIUM HYDROXIDE 2,400 MG/30 ML CUP PO PRN (18:30)
[2022-11-13 20:03] LABS: Glucose,Whole Blood 113 mg/dL (70-110)
[2022-11-13] MEDS: SENNOSIDES-DOCUSATE SODIUM 1 EACH TAB PO SCH (20:10)
[2022-11-13] MEDS: QUEtiapine 200 MG TAB PO SCH (22:36)
[2022-11-14 02:03] LABS: BUN/Creat Ratio 29.12 Ratio (12.00-20.00); Blood Urea Nitrogen 23.3 mg/dL (9.0-27.0); Calcium 9.5 mg/dL (8.7-10.3); Carbon Dioxide 24.7 mmol/L (21.6-31.8); Chloride 106 mmol/L (96-109); Glucose 106 mg/dL (70-110); Potassium 4.9 mmol/L (3.5-5.5); Sodium 142 mmol/L (135-145)
[2022-11-14] MEDS: HYDROcodone/APAP 10-325MG 1 EACH TAB PO PRN (02:22)
[2022-11-14] MEDS: HYDROmorphone 1 MG/ML 1 ML SYRINGE IVP PRN ×3 (03:18→15:08)
[2022-11-14] MEDS: NON FORMULARY DRUG (Morphine Pain Pump 1 DOSE) INJ SCH (03:21)
[2022-11-14] MEDS: SODIUM CHLORIDE 0.9% 1,000 ML IV SCH ×2 (03:21→15:08)
[2022-11-14 05:56] LABS: Glucose,Whole Blood 91 mg/dL (70-110)
[2022-11-14] MEDS: INSULIN ASPART (NovoLOG) 100 UNIT/ML VIAL SQ SCH ×4 (06:08→20:56)
[2022-11-14] MEDS: LEVOTHYROXINE 75 MCG TAB PO SCH (06:36)
[2022-11-14 08:37] LABS: HCT 34.6 % (39.6-50.0); HGB 10.9 d/dL (12.0-15.0); MCH 31.6 pg (27.0-32.0); MCHC 31.5 d/dL (32.0-37.0); MCV 100.3 FL (80.0-97.0); Mean Platelet Volume 9.8 FL (9.5-12.2); NRBC Per 100 WBC 0 X 10*3/uL (0.00-0.01); Platelet Count 259 X 10*3/uL (140-440); RBC 3.45 X 10*6/uL (4.40-5.60); RDW 14.8 % (11.5-14.5)
[2022-11-14 09:07] LABS: ALT 25 U/L (10-49); AST 84 U/L (14-35); Alkaline Phosphatase 224 U/L (41-126); BUN/Creat Ratio 23.62 Ratio (12.00-20.00); Blood Urea Nitrogen 18.9 mg/dL (9.0-27.0); Calcium 9.4 mg/dL (8.7-10.3); Chloride 108 mmol/L (96-109); Globulin 2.5 d/dL (1.6-3.3); Glucose 84 mg/dL (70-110); Magnesium 1.7 mg/dL (1.5-2.4); Potassium 5.2 mmol/L (3.5-5.5); Sodium 144 mmol/L (135-145); Total Bilirubin 0.2 mg/dL (0.3-1.2); Total Protein 6.5 d/dL (6.2-8.2)
[2022-11-14] MEDS: LOSARTAN 50 MG TAB PO SCH (09:20)
[2022-11-14] MEDS: ENOXAPARIN 40 MG/0.4 ML SYRINGE SQ SCH (09:20)
[2022-11-14] MEDS: buPROPion XL 150 MG TAB.ER.24H PO SCH (09:20)
[2022-11-14] MEDS: ATORVASTATIN 40 MG TAB PO SCH (09:20)
[2022-11-14] MEDS: clonazePAM 1 MG TAB PO SCH ×3 (09:20→20:57)
[2022-11-14] MEDS: DILTIAZEM CD 180 MG CAP.ER.24H PO SCH (09:20)
[2022-11-14] MEDS: SENNOSIDES-DOCUSATE SODIUM 1 EACH TAB PO SCH ×2 (09:20→20:57)
[2022-11-14] MEDS: carBAMazepine 200 MG TAB PO SCH ×2 (09:21→20:55)
[2022-11-14] MEDS: VENLAFAXINE HCL 50 MG TAB PO SCH ×3 (09:21→21:04)
[2022-11-14] MEDS: buPROPion XL 300 MG TAB.ER.24H PO SCH (09:21)
[2022-11-14] MEDS ORDERED: PROCHLORPERAZINE INJ 10 MG/2 ML VIAL IM STA (11:47)
[2022-11-14] MEDS ORDERED: diphenhydrAMINE 50 MG/ML 1 ML VIAL IVP STA (11:47)
[2022-11-14] MEDS ORDERED: KETOROLAC 15 MG/ML 1 ML VIAL IVP STA (11:47)
--- NOTE | 2022-11-14 11:48 | P.PN ---
Subjective Progress Note Date: 11/14/22 Hospital course: Patient is a very pleasant 66-year-old male with a past medical history of CAD with pacemaker, hypertension, hyperlipidemia, insulin-dependent diabetes mellitus, hypothyroidism, anxiety, depression, and chronic pain with pain pump. He presented to the hospital overnight secondary to concerns of unintentional weight loss resulting from intractable nausea and vomiting. Patient was recently diagnosed with lesions of his liver in September 2022 and underwent liver biopsy which then resulted as nondiagnostic. Patient is scheduled to undergo repeat biopsy at [facility] however he presented to the emergency department overnight with a chief complaint of intractable nausea and vomiting. He underwent full evaluation in the emergency department. Gallbladder ultrasound completed revealing hepatic masses with largest measuring 13.1 x 9.0 x 14.1 cm concerning for metastatic disease and mass/lesion in the region of the pancreatic head measuring 1.8 x 1.[address] abdomen and pelvis with IV contrast done completed showing enlarging masses within the liver consistent with metastatic disease progression and unchanged lesion in the pancreatic neck, prostatomegaly, and a horseshoe kidney. Labs completed and reviewed. CBC showing macrocytic anemia with hemoglobin of 10.9. BMP showing mild hyperkalemia with potassium of 5.6, calcium 10.3, elevated BUN of 38, and creatinine of 0.60. Liver profile showing elevated AST of 76 and alkaline phosphatase of 189. Amylase elevated at 223 with lipase of 402. Tumor marker AFP less than 3.00 and CA 19-9 was 20.1. Patient admitted under our services with consultation to gastroenterology and oncology. Physical exam: Vital signs reviewed and stable. General: Nontoxic, no distress and appears stated age. Derm: Skin warm and dry, normal coloration for ethnicity. Head: Atraumatic, normocephalic and symmetric. Eyes: EOMs intact, no lid lag, and anicteric sclera Mouth: no lip lesions, mucus membranes moist Cardiovascular: regular rate and rhythm with normal S1S2, no murmur, positive posterior tibial pulses bilaterally, and cap refill < 2 seconds. Lungs: Respirations even, regular, and unlabored on room air. Lungs CTA bilaterally, no rhonchi, no rales, no wheezing, and no accessory muscle usage. Abdominal: soft, tenderness to palpation in right upper quadrant,, no guarding, no appreciable organomegaly Ext: ROM intact. No gross muscle atrophy, no edema, no contractures Neuro: Speech clear, face symmetrical and CN II-XII grossly intact with no noted focal neuro deficits Psych: Alert and oriented to person, place, time, and situation. Appropriate and pleasant affect. Assessment and Plan of Care: Abdominal pain, possibly secondary to metastatic process with concerns of pancreatic and liver masses Intractable nausea and vomiting Anorexia with unintentional weight loss Elevated liver enzymes Elevated amylase and lipase -Symptomatic care and pain management. -Continue gentle IV fluid hydration with 0.9% normal saline at 100 mL per hour. -CMP showing continued elevation of liver enzymes with AST of 84 and alkaline phosphatase of 224 -Oncology following, appreciate recommendations. Hyperkalemia and hypercalcemia, resolved. -Repeat morning labs reviewed. Potassium 5.2 and calcium 9.4. -Continue gentle IV fluid hydration with 0.9% normal saline at 100 mL per hour. Lactic acidosis, resolved Hypertension -Monitor vital signs and continue daily medication regimen with Cardizem 180 mg daily and Cozaar 100 mg daily, Hypothyroidism -Continue daily medication regimen with Synthroid 75 g daily. Insulin-dependent diabetes mellitus -Continue glycemic protocol with NovoLog sliding scale. Blood glucose levels over the past 24 hours reviewed and have ranged 92-130. Anxiety and depression Continue daily medication regimen with Wellbutrin 450 mg daily, Tegretol 400 mg twice daily, Klonopin 1 mg 3 times daily, Seroquel 400 mg nightly, and Effexor 100 mg 3 times daily. CODE STATUS: Full code DVT prophylaxis: Lovenox Discussed with: Patient and RN Anticipated discharge date: Clinical course to determine Anticipated discharge place: Home Patient was seen independently by Nurse Pracitioner. This document was prepared using [employer] dictation software. Please allow for errors in manager mission, while rare they do occur. Solis Sutton NP rendered care for this patient independently, reviewed the findings and plan as documented in the note above. I did not physically speak with or examine the patient on this date. Objective - Vital Signs Vital signs: Vital Signs Temp 98.5 F 11/14/22 07:00 Pulse 62 11/14/22 07:00 Resp 16 11/14/22 07:00 BP 152/75 11/14/22 07:00 Pulse Ox 97 11/14/22 07:00 FiO2 Intake & Output 11/13/22 11/14/22 11/14/22 18:59 06:59 18:59 Intake Total 700 Balance 700 Intake: Intake, IV Titration 700 Amount Sodium Chloride 0.9% 1, 700 000 ml @ 130 mls/hr IV . Q7H42M [facility] Rx#:[id number] Other: Voiding Method Toilet Toilet # Voids 2 - Labs CBC & Chem 7: 11/14/22 06:06 11/14/22 06:06 Labs: Abnormal Lab Results - Last 24 Hours (Table) 11/13/22 11/13/22 11/13/22 Range/Units 17:31 19:44 20:00 WBC (4.50-10.00) X 10*3/uL RBC (4.40-5.60) X 10*6/uL Hgb (12.0-15.0) d/dL Hct (39.6-50.0) % MCV (80.0-97.0) FL MCHC (32.0-37.0) d/dL RDW (11.5-14.5) % BUN/Creatinine Ratio 29.12 H (12.00-20.00) Ratio POC Glucose (mg/dL) 130 H 113 H (70-110) mg/dL Total Bilirubin (0.3-1.2) mg/dL AST (14-35) U/L Alkaline Phosphatase (41-126) U/L 11/14/22 11/14/22 Range/Units 06:06 06:06 WBC 3.80 L (4.50-10.00) X 10*3/uL RBC 3.45 L (4.40-5.60) X 10*6/uL Hgb 10.9 L (12.0-15.0) d/dL Hct 34.6 L (39.6-50.0) % MCV 100.3 H (80.0-97.0) FL MCHC 31.5 L (32.0-37.0) d/dL RDW 14.8 H (11.5-14.5) % BUN/Creatinine Ratio 23.62 H (12.00-20.00) Ratio POC Glucose (mg/dL) (70-110) mg/dL Total Bilirubin 0.2 L (0.3-1.2) mg/dL AST 84 H (14-35) U/L Alkaline Phosphatase 224 H (41-126) U/L
[2022-11-14 12:58] LABS: Glucose,Whole Blood 109 mg/dL (70-110)
--- NOTE | 2022-11-14 17:04 | P.PN ---
Subjective Progress Note Date: 11/14/22 Principal diagnosis: Abdominal pain In follow-up today patient reports that he had a headache for moving around, this was also causing him some abdominal discomfort, he is also noting increased and musculoskeletal pains. He has not vomited today. Objective - Vital Signs Vital signs: Vital Signs Temp 98.2 F 11/14/22 14:35 Pulse 85 11/14/22 14:35 Resp 18 11/14/22 14:35 BP 121/74 11/14/22 14:35 Pulse Ox 98 11/14/22 14:35 FiO2 Intake & Output 11/13/22 11/14/22 11/14/22 18:59 06:59 18:59 Intake Total 700 1036 Balance 700 1036 Intake: Intake, IV Titration 700 800 Amount Sodium Chloride 0.9% 1, 800 000 ml @ 100 mls/hr IV . Q10H [facility] Rx#:[id number] Sodium Chloride 0.9% 1, 700 000 ml @ 130 mls/hr IV . Q7H42M [facility] Rx#:[id number] Oral 236 Other: Voiding Method Toilet Toilet # Voids 2 - Constitutional General appearance: Present: average body habitus, cooperative, no acute distress - EENT Eyes: Present: anicteric sclerae, EOMI ENT: Present: hearing grossly normal - Respiratory Details: Respirations even and unlabored at rest - Cardiovascular Details: Skin warm and dry to the touch - Peripheral edema leg Peripheral Edema: bilateral: None - Gastrointestinal General gastrointestinal: Present: normal bowel sounds, soft - Integumentary Integumentary: Present: pale - Neurologic Neurologic: Present: CNII-XII intact - Musculoskeletal Musculoskeletal: Present: generalized weakness, strength equal bilaterally - Psychiatric Psychiatric: Present: A&O x's 3, appropriate affect, intact judgment & insight - Labs CBC & Chem 7: 11/14/22 06:06 11/14/22 06:06 Labs: Abnormal Lab Results - Last 24 Hours (Table) 11/13/22 11/13/22 11/13/22 Range/Units 17:31 19:44 20:00 WBC (4.50-10.00) X 10*3/uL RBC (4.40-5.60) X 10*6/uL Hgb (12.0-15.0) d/dL Hct (39.6-50.0) % MCV (80.0-97.0) FL MCHC (32.0-37.0) d/dL RDW (11.5-14.5) % BUN/Creatinine Ratio 29.12 H (12.00-20.00) Ratio POC Glucose (mg/dL) 130 H 113 H (70-110) mg/dL Hemoglobin A1c (<=6.0) % Total Bilirubin (0.3-1.2) mg/dL AST (14-35) U/L Alkaline Phosphatase (41-126) U/L 11/14/22 11/14/22 11/14/22 Range/Units 06:06 06:06 06:06 WBC 3.80 L (4.50-10.00) X 10*3/uL RBC 3.45 L (4.40-5.60) X 10*6/uL Hgb 10.9 L (12.0-15.0) d/dL Hct 34.6 L (39.6-50.0) % MCV 100.3 H (80.0-97.0) FL MCHC 31.5 L (32.0-37.0) d/dL RDW 14.8 H (11.5-14.5) % BUN/Creatinine Ratio 23.62 H (12.00-20.00) Ratio POC Glucose (mg/dL) (70-110) mg/dL Hemoglobin A1c 6.1 H (<=6.0) % Total Bilirubin 0.2 L (0.3-1.2) mg/dL AST 84 H (14-35) U/L Alkaline Phosphatase 224 H (41-126) U/L Assessment and Plan (1) Abdominal pain Current Visit: Yes Status: Acute Priority: High Code(s): R10.9 - UNSPECIFIED ABDOMINAL PAIN SNOMED Code(s): 19352070 (2) Pancreatic mass Current Visit: Yes Status: Acute Priority: High Code(s): K86.89 - OTHER SPECIFIED DISEASES OF PANCREAS SNOMED Code(s): 310016736 (3) Liver mass Current Visit: Yes Status: Acute Priority: High Code(s): R16.0 - HEPATOMEGALY, NOT ELSEWHERE CLASSIFIED SNOMED Code(s): 144014577 Plan: Abdominal pain -Patient has a pain pump for chronic pain. Information from pain management is that there is morphine and clonidine in the pump. We'll change IV pain medication to morphine. Continue IV morphine for 24 hours then convert to oral for breakthrough. -Medications for prevention of narcotic-induced constipation ordered -Supportive medications for prevention/treatment of nausea Liver mass, pancreatic head mass -Pancreatic enzymes slightly elevated. -having patient consume a clear diet for the rest of today until tomorrow-see if abd pain is any better -previous liver biopsy was nondiagnostic -Plans for biopsy outpatient have already been scheduled We will follow up tomorrow and see how patient's pain is doing attests: I seen and examined patient, performed H&P, developed impression and plan of care. Discussed with dictator. Agree with documentation, dictated as a scribe.
[2022-11-14 17:28] LABS: Glucose,Whole Blood 97 mg/dL (70-110)
[2022-11-14 20:11] LABS: Glucose,Whole Blood 170 mg/dL (70-110)
[2022-11-14] MEDS: QUEtiapine 200 MG TAB PO SCH (20:56)
[2022-11-15] MEDS: SODIUM CHLORIDE 0.9% 1,000 ML IV SCH ×2 (02:08→15:46)
[2022-11-15] MEDS: NON FORMULARY DRUG (Morphine Pain Pump 1 DOSE) INJ SCH (04:06)
[2022-11-15 05:57] LABS: Glucose,Whole Blood 90 mg/dL (70-110)
[2022-11-15] MEDS: INSULIN ASPART (NovoLOG) 100 UNIT/ML VIAL SQ SCH ×4 (06:09→20:10)
[2022-11-15] MEDS: LEVOTHYROXINE 75 MCG TAB PO SCH (06:10)
[2022-11-15] MEDS: MORPHINE SULFATE 4 MG/ML SYRINGE IVP PRN ×2 (07:51→12:06)
[2022-11-15 08:21] VITALS: RESP 16
[2022-11-15] MEDS: VENLAFAXINE HCL 50 MG TAB PO SCH ×3 (08:49→20:11)
[2022-11-15] MEDS: ENOXAPARIN 40 MG/0.4 ML SYRINGE SQ SCH (08:49)
[2022-11-15] MEDS: clonazePAM 1 MG TAB PO SCH ×3 (08:50→21:00)
[2022-11-15] MEDS: buPROPion XL 300 MG TAB.ER.24H PO SCH (08:50)
[2022-11-15] MEDS: ATORVASTATIN 40 MG TAB PO SCH (08:50)
[2022-11-15] MEDS: DILTIAZEM CD 180 MG CAP.ER.24H PO SCH (08:50)
[2022-11-15] MEDS: LOSARTAN 50 MG TAB PO SCH (08:50)
[2022-11-15] MEDS: carBAMazepine 200 MG TAB PO SCH ×2 (08:51→20:10)
[2022-11-15] MEDS: SENNOSIDES-DOCUSATE SODIUM 1 EACH TAB PO SCH ×2 (08:51→20:11)
[2022-11-15] MEDS: buPROPion XL 150 MG TAB.ER.24H PO SCH (08:51)
[2022-11-15 12:17] LABS: Glucose,Whole Blood 95 mg/dL (70-110)
[2022-11-15] MEDS: MORPHINE SULFATE IR 15 MG TABLET PO PRN ×2 (15:44→20:11)
[2022-11-15 17:21] LABS: Glucose,Whole Blood 93 mg/dL (70-110)
--- NOTE | 2022-11-15 18:28 | P.PN ---
Subjective Progress Note Date: 11/15/22 Hospital course: Patient is a very pleasant 66-year-old male with a past medical history of CAD with pacemaker, hypertension, hyperlipidemia, insulin-dependent diabetes mellitus, hypothyroidism, anxiety, depression, and chronic pain with pain pump. He presented to the hospital overnight secondary to concerns of unintentional weight loss resulting from intractable nausea and vomiting. Patient was recently diagnosed with lesions of his liver in September 2022 and underwent liver biopsy which then resulted as nondiagnostic. Patient is scheduled to undergo repeat biopsy at [facility] however he presented to the emergency department overnight with a chief complaint of intractable nausea and vomiting. He underwent full evaluation in the emergency department. Gallbladder ultrasound completed revealing hepatic masses with largest measuring 13.1 x 9.0 x 14.1 cm concerning for metastatic disease and mass/lesion in the region of the pancreatic head measuring 1.8 x 1.[address] abdomen and pelvis with IV contrast done completed showing enlarging masses within the liver consistent with metastatic disease progression and unchanged lesion in the pancreatic neck, prostatomegaly, and a horseshoe kidney. Labs completed and reviewed. CBC showing macrocytic anemia with hemoglobin of 10.9. BMP showing mild hyperkalemia with potassium of 5.6, calcium 10.3, elevated BUN of 38, and creatinine of 0.60. Liver profile showing elevated AST of 76 and alkaline phosphatase of 189. Amylase elevated at 223 with lipase of 402. Tumor marker AFP less than 3.00 and CA 19-9 was 20.1. Patient was admitted under our services with consultation to gastroenterology and oncology. Physical exam: Patient seen and fully evaluated at the bedside this morning. Patient tolerating clear liquid diet. Plans to advance clear liquid diet to full liquid and advance as patient tolerates. Once patient tolerating regular diet, may plan for discharge. Vital signs reviewed and stable. General: Nontoxic, no distress and appears stated age. Derm: Skin warm and dry, normal coloration for ethnicity. Head: Atraumatic, normocephalic and symmetric. Eyes: EOMs intact, no lid lag, and anicteric sclera Mouth: no lip lesions, mucus membranes moist Cardiovascular: regular rate and rhythm with normal S1S2, no murmur, positive posterior tibial pulses bilaterally, and cap refill < 2 seconds. Lungs: Respirations even, regular, and unlabored on room air. Lungs CTA bilaterally, no rhonchi, no rales, no wheezing, and no accessory muscle usage. Abdominal: soft, tenderness to palpation in right upper quadrant,, no guarding, no appreciable organomegaly Ext: ROM intact. No gross muscle atrophy, no edema, no contractures Neuro: Speech clear, face symmetrical and CN II-XII grossly intact with no noted focal neuro deficits Psych: Alert and oriented to person, place, time, and situation. Appropriate and pleasant affect. Assessment and Plan of Care: Abdominal pain, possibly secondary to metastatic process with concerns of pancreatic and liver masses Intractable nausea and vomiting Anorexia with unintentional weight loss Weakness and fatigue secondary to above Elevated liver enzymes Elevated amylase and lipase -Symptomatic care and pain management. -IV fluid discontinued at this time as patient tolerating oral intake with clear liquid diet and diet being advanced. -Order placed to advance diet to full liquid diet and RN to advance as patient tolerates to cardiac diet. -Oncology following, discussed plan of care with oncology FACE HARDENER. Recommending slow advancement of diet. Reports plans for biopsy outpatient have already been scheduled. -Patient reports full resolution of previous nausea and vomiting. -PT/OT following. -We will repeat CMP tomorrow morning to follow-up/monitor for improvement of elevated liver enzymes Hyperkalemia and hypercalcemia, resolved. Lactic acidosis, resolved Hypertension -Monitor vital signs and continue daily medication regimen with Cardizem 180 mg daily and Cozaar 100 mg daily, morning blood pressure prior to antihypertensive medication administration was 161/77 with heart rate of 60. Hypothyroidism -Continue daily medication regimen with Synthroid 75 g daily. Insulin-dependent diabetes mellitus -Continue glycemic protocol with NovoLog sliding scale. Blood glucose levels over the past 24 hours reviewed and have ranged 91-170. Anxiety and depression Continue daily medication regimen with Wellbutrin 450 mg daily, Tegretol 400 mg twice daily, Klonopin 1 mg 3 times daily, Seroquel 400 mg nightly, and Effexor 100 mg 3 times daily. Data review: Labs reviewed. Blood glucose levels ranging between 91-170 over the past 24 hours. Vital signs reviewed. Blood pressure 161/77, heart rate 60, respiratory rate 16, SpO2 100% on room air and 98.2F. Imaging reviewed: No new imaging for review. CODE STATUS: Full code DVT prophylaxis: Lovenox Discussed with: Patient and RN Anticipated discharge date: Clinical course to determine Anticipated discharge place: Home Patient was seen independently by Nurse Pracitioner. This document was prepared using [employer] dictation software. Please allow for errors in software development leader, while rare they do occur. Solis Sutton FACE HARDENER rendered care for this patient independently, reviewed the findings and plan as documented in the note above. I did not physically speak with or examine the patient on this date. Objective - Vital Signs Vital signs: Vital Signs Temp 98.2 F 11/15/22 07:35 Pulse 60 11/15/22 07:35 Resp 16 11/15/22 07:35 BP 161/77 11/15/22 07:35 Pulse Ox 100 11/15/22 07:35 FiO2 Intake & Output 11/14/22 11/15/22 11/15/22 18:59 06:59 18:59 Intake Total 1156 Balance 1156 Intake: Intake, IV Titration 800 Amount Sodium Chloride 0.9% 1, 800 000 ml @ 100 mls/hr IV . Q10H [facility] Rx#:[id number] Oral 356 Other: Voiding Method Toilet # Voids 1 - Labs CBC & Chem 7: 11/14/22 06:06 11/14/22 06:06 Labs: Abnormal Lab Results - Last 24 Hours (Table) 11/14/22 11/14/22 Range/Units 06:06 20:09 POC Glucose (mg/dL) 170 H (70-110) mg/dL Hemoglobin A1c 6.1 H (<=6.0) %
[2022-11-15 20:03] LABS: Glucose,Whole Blood 181 mg/dL (70-110)
[2022-11-15] MEDS: QUEtiapine 200 MG TAB PO SCH (20:10)
[2022-11-16] MEDS: NON FORMULARY DRUG (Morphine Pain Pump 1 DOSE) INJ SCH (03:02)
[2022-11-16] MEDS: MORPHINE SULFATE IR 15 MG TABLET PO PRN ×2 (04:47→10:26)
[2022-11-16] MEDS: INSULIN ASPART (NovoLOG) 100 UNIT/ML VIAL SQ SCH (06:13)
[2022-11-16 06:14] LABS: Glucose,Whole Blood 90 mg/dL (70-110)
[2022-11-16] MEDS: LEVOTHYROXINE 75 MCG TAB PO SCH (06:14)
[2022-11-16 08:04] VITALS: BP 144/80; PULSE 60; TEMP 98.6
[2022-11-16] MEDS: buPROPion XL 300 MG TAB.ER.24H PO SCH (08:34)
[2022-11-16] MEDS: buPROPion XL 150 MG TAB.ER.24H PO SCH (08:35)
[2022-11-16] MEDS: LOSARTAN 50 MG TAB PO SCH (08:35)
[2022-11-16] MEDS: ATORVASTATIN 40 MG TAB PO SCH (08:35)
[2022-11-16] MEDS: VENLAFAXINE HCL 50 MG TAB PO SCH (08:35)
[2022-11-16] MEDS: ENOXAPARIN 40 MG/0.4 ML SYRINGE SQ SCH (08:36)
[2022-11-16] MEDS: DILTIAZEM CD 180 MG CAP.ER.24H PO SCH (08:36)
[2022-11-16] MEDS: carBAMazepine 200 MG TAB PO SCH (08:36)
[2022-11-16] MEDS: clonazePAM 1 MG TAB PO SCH (08:42)
[2022-11-16] MEDS: SENNOSIDES-DOCUSATE SODIUM 1 EACH TAB PO SCH (09:16)
[2022-11-16 09:22] LABS: HCT 32.3 % (39.6-50.0); HGB 10.1 d/dL (12.0-15.0); MCH 31.3 pg (27.0-32.0); MCHC 31.3 d/dL (32.0-37.0); Mean Platelet Volume 9.9 FL (9.5-12.2); NRBC Per 100 WBC 0 X 10*3/uL (0.00-0.01); Platelet Count 260 X 10*3/uL (140-440); RBC 3.23 X 10*6/uL (4.40-5.60); RDW 15.1 % (11.5-14.5); WBC 3.77 X 10*3/uL (4.50-10.00)
[2022-11-16 11:56] LABS: ALT 24 U/L (10-49); AST 88 U/L (14-35); Albumin/Globulin Ratio 1.54 Ratio (1.60-3.17); Alkaline Phosphatase 217 U/L (41-126); BUN/Creat Ratio 14.56 Ratio (12.00-20.00); Blood Urea Nitrogen 13.1 mg/dL (9.0-27.0); Calcium 9.4 mg/dL (8.7-10.3); Carbon Dioxide 22.7 mmol/L (21.6-31.8); Chloride 107 mmol/L (96-109); Globulin 2.6 d/dL (1.6-3.3); Glucose 88 mg/dL (70-110); Magnesium 1.6 mg/dL (1.5-2.4); Sodium 143 mmol/L (135-145); Total Bilirubin 0.3 mg/dL (0.3-1.2); Total Protein 6.6 d/dL (6.2-8.2)
--- NOTE | 2022-11-16 13:55 | P.DS ---
Providers Date of admission: 11/13/22 09:16 Expected date of discharge: 11/16/22 Attending physician: Corrie Gallegos MD Consults: 11/13/22 02:34 Consult Physician Routine Consulting Provider: Charles Manzanares Consult Reason/Comments: pancreatic mass Do you want consulting provider notified?: Yes Primary care physician: Luis Maneul Loaiza MD Hospital Course: Abdominal pain, possibly secondary to metastatic process with concerns of pancreatic and liver masses Intractable nausea and vomiting Anorexia with unintentional weight loss Weakness and fatigue secondary to above Elevated liver enzymes Elevated amylase and lipase Hyperkalemia and hypercalcemia, resolved. Lactic acidosis, resolved Hypertension Hypothyroidism Insulin-dependent diabetes mellitus Anxiety and depression Hospital Course: Patient is a very pleasant 66-year-old male with a past medical history of CAD with pacemaker, hypertension, hyperlipidemia, insulin-dependent diabetes mellitus, hypothyroidism, anxiety, depression, and chronic pain with pain pump. He presented to the hospital overnight secondary to concerns of unintentional weight loss resulting from intractable nausea and vomiting. He underwent full evaluation in the emergency department. Gallbladder ultrasound completed revealing hepatic masses with largest measuring 13.1 x 9.0 x 14.1 cm concerning for metastatic disease and mass/lesion in the region of the pancreatic head measuring 1.8 x 1.[address] abdomen and pelvis with IV contrast done completed showing enlarging masses within the liver consistent with metastatic disease progression and unchanged lesion in the pancreatic neck, prostatomegaly, and a horseshoe kidney. Labs completed and reviewed. CBC showing macrocytic anemia with hemoglobin of 10.9. BMP showing mild hyperkalemia with potassium of 5.6, calcium 10.3, elevated BUN of 38, and creatinine of 0.60. Liver profile showing elevated AST of 76 and alkaline phosphatase of 189. Amylase elevated at 223 with lipase of 402. Tumor marker AFP less than 3.00 and CA 19-9 was 20.1. Patient was admitted under our services with consultation to gastroenterology and oncology. GI recommended ongoing symptomatic and supportive care with pain management. Oncology recommended transitioning patient to morphine immediate release for breakthrough pain, they will follow up with the patient following his biopsy for further management. I spent 40 minutes coordinating this discharge on 11/16 Gen: awake, alert HEENT: normocephalic, atraumatic, good hearing acuity, moist mucous membranes Resp: good air exchange, breathing comfortably with no accessory muscle use CVS: good distal perfusion x 4, GI: soft, NTTP, ND : no SPT, no CVAT, goddard catheter not present MSK: no pitting edema, no clubbing Neuro: non-focal, moving all extremities Psych: cooperative, euthymic mood Patient Condition at Discharge: Good Plan - Discharge Summary New Discharge Prescriptions: New Magnesium Hydroxide [Milk of Magnesia] 2,400 mg PO DAILY PRN #1000 ml PRN Reason: Constipation Morphine Sulfate Ir [MSIR] 15 mg PO Q4HR PRN #30 tab PRN Reason: Pain Sennosides-Docusate Sodium [Senokot-S] 1 each PO BID #60 tab Continue clonazePAM [KlonoPIN] 1 mg PO TID Diltiazem Cd [Cardizem CD] 180 mg PO DAILY Levothyroxine Sodium [Synthroid] 75 mcg PO DAILY Losartan Potassium 100 mg PO DAILY Relaxium-Sleep Otc 2 cap PO HS Insulin Aspart Prot/Insuln Asp [Relion Novolog Mix 70-30 Flxpn] 1 - 15 units SQ AC-BID PRN PRN Reason: High Sugar Butalbital/Acetaminophen 50-325mg 1 tab PO BID PRN PRN Reason: Migraine Headache Atorvastatin [Lipitor] 40 mg PO DAILY metFORMIN HCL [Glucophage] 1,000 mg PO BID QUEtiapine [SEROquel] 400 mg PO HS carBAMazepine [TEGretol] 400 mg PO BID buPROPion XL [Wellbutrin XL] 150 mg PO DAILY buPROPion HCL [Wellbutrin XL] 300 mg PO DAILY Venlafaxine HCl [Effexor] 100 mg PO TID Morphine Pain Pump 1 dose INTRATHECA DIRECTED HYDROcodone/APAP 10-325MG [[place] 10-325] 1 tab PO Q4HR PRN PRN Reason: Pain Discontinued Docusate [Colace] 100 mg PO BID Discharge Medication List Diltiazem Cd [Cardizem CD] 180 mg PO DAILY 07/14/21 [History] Levothyroxine Sodium [Synthroid] 75 mcg PO DAILY 07/14/21 [History] Losartan Potassium 100 mg PO DAILY 07/14/21 [History] QUEtiapine [SEROquel] 400 mg PO HS 07/14/21 [History] buPROPion HCL [Wellbutrin XL] 300 mg PO DAILY 07/14/21 [History] buPROPion XL [Wellbutrin XL] 150 mg PO DAILY 07/14/21 [History] carBAMazepine [TEGretol] 400 mg PO BID 07/14/21 [History] clonazePAM [KlonoPIN] 1 mg PO TID 07/14/21 [History] Venlafaxine HCl [Effexor] 100 mg PO TID 07/15/21 [History] Butalbital/Acetaminophen 50-325mg 1 tab PO BID PRN 10/01/22 [History] Insulin Aspart Prot/Insuln Asp [Relion Novolog Mix 70-30 Flxpn] 1 - 15 units SQ AC-BID PRN 10/01/22 [History] Relaxium-Sleep Otc 2 cap PO HS 10/01/22 [History] Atorvastatin [Lipitor] 40 mg PO DAILY 10/15/22 [History] Morphine Pain Pump 1 dose INTRATHECA DIRECTED 10/15/22 [History] metFORMIN HCL [Glucophage] 1,000 mg PO BID 10/15/22 [History] HYDROcodone/APAP 10-325MG [[place] 10-325] 1 tab PO Q4HR PRN 11/12/22 [History] Magnesium Hydroxide [Milk of Magnesia] 2,400 mg PO DAILY PRN #1000 ml 11/16/22 [Rx] Morphine Sulfate Ir [MSIR] 15 mg PO Q4HR PRN #30 tab 11/16/22 [Rx] Sennosides-Docusate Sodium [Senokot-S] 1 each PO BID #60 tab 11/16/22 [Rx] Follow up Appointment(s)/Referral(s): Jaime Rosado MD [STAFF PHYSICIAN] - 11/29/22 10:30 am (After biopsy) Luis Manuel Loaiza MD [Primary Care Provider] - 1-2 days Patient Instructions/Handouts: Hyponatremia (GEN), Acute Nausea and Vomiting (GEN), Acute Abdominal Pain (GEN), Lactic Acidosis (GEN) Activity/Diet/Wound Care/Special Instructions: Biopsy scheduled for 11/21/22 at 7 AM Marvin Walters. Morphine IR 15mg tabs- Rx sent to [facility] 3.5 Star [phone] [facility] Served: [facility] 3.5 Star [phone] Counties Served: [place], [place], [place], [facility] 3 Star [phone] Counties Served: [place], [place], part of [facility] Care 4.5 Star [phone] Counties Served: [place], [place], [place] [facility] 4 Star [phone] Counties Served: [place], portions of [facility] Services 1.5 Star [phone] Counties Served: [place], [place], [place], portions of [facility] 3 Star [phone] Counties Served: [place], [place] portions of [facility] 4 Star [phone] Counties Served: [place], [place], [facility] 4 Star [phone] Counties Served: [place], [place], [place], [place], [place], [place], [facility], [facility] [place] 3 Star [phone] Call for a current list of areas served [facility] 3.5 Star [phone] Counties Served: [place], [place], [place], [place], [place], [place] [facility] 2 Star [phone] Counties Served: [place], [place], [place], [place], [place], [facility] 4 Star [phone] Counties Served: [place], part of [place], part of [place], small portion of [place] Discharge/Stand Alone Forms: Area PCPs Discharge Disposition: HOME SELF-CARE
== END 2022-11-16 11:09 | disposition home or self-care (01) | DRG 436 ==
LOC: EC 21:01 → 6NMEDSUR 11-13 01:52 → OBSVTOIN 11-13 09:16
PROVIDERS: ADMIT Internal Medicine; ATTEND Internal Medicine
DX: C22.8 Malignant neoplasm of liver, primary, unspecified as to type (principal); C78.89 Secondary malignant neoplasm of other digestive organs; E87.20 Acidosis, unspecified; E87.1 Hypo-osmolality and hyponatremia; R16.0 Hepatomegaly, not elsewhere classified; E86.0 Dehydration; D53.9 Nutritional anemia, unspecified; R63.4 Abnormal weight loss; F32.A Depression, unspecified; E11.9 Type 2 diabetes mellitus without complications; I10 Essential (primary) hypertension; J44.9 Chronic obstructive pulmonary disease, unspecified; E03.9 Hypothyroidism, unspecified; I48.91 Unspecified atrial fibrillation; Z79.4 Long term (current) use of insulin; I25.10 Atherosclerotic heart disease of native coronary artery without angina pectoris; E78.5 Hyperlipidemia, unspecified; Z96.642 Presence of left artificial hip joint; E83.42 Hypomagnesemia; Z96.89 Presence of other specified functional implants; N40.0 Benign prostatic hyperplasia without lower urinary tract symptoms; E87.5 Hyperkalemia; R63.0 Anorexia; E83.52 Hypercalcemia; F41.9 Anxiety disorder, unspecified; M79.18 Myalgia, other site; R91.1 Solitary pulmonary nodule; G89.29 Other chronic pain; M54.9 Dorsalgia, unspecified; R00.1 Bradycardia, unspecified; R53.81 Other malaise; Z79.899 Other long term (current) drug therapy; Z79.890 Hormone replacement therapy; Z79.84 Long term (current) use of oral hypoglycemic drugs; Z88.0 Allergy status to penicillin; Z80.0 Family history of malignant neoplasm of digestive organs; Z79.891 Long term (current) use of opiate analgesic; I25.2 Old myocardial infarction; Z95.0 Presence of cardiac pacemaker; Q63.1 Lobulated, fused and horseshoe kidney; Z87.891 Personal history of nicotine dependence
CPT/HCPCS: 36415; 74177; 76705; 80048; 80053; 82105; 82150; 83036; 83605; 83690; 83735; 84484; 85025; 85027; 85610; 85730; 86301; 86850; 86900; 86901; 93005

== ENCOUNTER 2022-11-19 15:39 | Observation (INO) | payer MEDICARE ==
[2022-11-19] MEDS ORDERED: PANTOPRAZOLE 40 MG/10 ML VIAL IVP STA (15:42)
[2022-11-19] MEDS ORDERED: SODIUM CHLORIDE 0.9% 1,000 ML IV STA (15:42)
[2022-11-19] MEDS ORDERED: ONDANSETRON 4 MG/2 ML VIAL IVP STA (15:42)
--- NOTE | 2022-11-19 15:50 | ED ---
Recheck HPI - General Stated Complaint: Nausea, vomiting Time Seen by Provider: 11/19/22 15:42 Source: RN notes reviewed, old records reviewed Limitations: no limitations - History of Present Illness Initial Comments: This is a 66-year-old male DF for evaluation patient presents today for evaluation regards to pain cancer pain with history of cancer known history of cancer having severe abdominal pain back pain body pain and aches MD Complaint: other (Severe pain) -: minutes(s) Returns Today for: persistent/worsening pain related to initial visit Context: planned re-check Associated Symptoms: abdominal pain Treatments Prior to Arrival: other (0) - Related Data Home Medications Medication Instructions Recorded Confirmed Diltiazem Cd [Cardizem CD] 180 mg PO DAILY 07/14/21 11/19/22 Levothyroxine Sodium [Synthroid] 75 mcg PO DAILY 07/14/21 11/19/22 Losartan Potassium 100 mg PO DAILY 07/14/21 11/19/22 QUEtiapine [SEROquel] 400 mg PO HS 07/14/21 11/19/22 buPROPion HCL [Wellbutrin XL] 300 mg PO DAILY 07/14/21 11/19/22 buPROPion XL [Wellbutrin XL] 150 mg PO DAILY 07/14/21 11/19/22 carBAMazepine [TEGretol] 400 mg PO BID 07/14/21 11/19/22 clonazePAM [KlonoPIN] 1 mg PO TID 07/14/21 11/19/22 Venlafaxine HCl [Effexor] 100 mg PO TID 07/15/21 11/19/22 Butalbital/Acetaminophen 50-325mg 1 tab PO BID PRN 10/01/22 11/19/22 Insulin Aspart Prot/Insuln Asp 1 - 15 units SQ AC-BID PRN 10/01/22 11/19/22 [Relion Novolog Mix 70-30 Flxpn] Relaxium-Sleep Otc 2 cap PO HS 10/01/22 11/19/22 Atorvastatin [Lipitor] 40 mg PO DAILY 10/15/22 11/19/22 Morphine Pain Pump 1 dose INTRATHECA DIRECTED 10/15/22 11/19/22 metFORMIN HCL [Glucophage] 1,000 mg PO BID 10/15/22 11/19/22 Previous Rx's Medication Instructions Recorded Magnesium Hydroxide [Milk of 2,400 mg PO DAILY PRN #1000 ml 11/16/22 Magnesia] Morphine Sulfate Ir [MSIR] 15 mg PO Q4HR PRN #30 tab 11/16/22 Sennosides-Docusate Sodium 1 each PO BID #60 tab 11/16/22 [Senokot-S] Allergies Allergy/AdvReac Type Severity Reaction Status Date / Time Penicillins Allergy Unknown Verified 11/19/22 17:14 Review of Systems ROS Statement: Those systems with pertinent positive or pertinent negative responses have been documented in the HPI. ROS Other: All systems not noted in ROS Statement are negative. Past Medical History Past Medical History: Atrial Fibrillation, Coronary Artery Disease (CAD), COPD, Diabetes Mellitus, Hyperlipidemia, Hypertension, Myocardial Infarction ([place]), Thyroid Disorder Additional Past Medical History / Comment(s): [place] 2019, hypothyroid Last Myocardial Infarction Date:: 2018 History of Any Multi-Drug Resistant Organisms: None Reported Past Surgical History: Joint Replacement, Pacemaker Additional Past Surgical History / Comment(s): pacemaker insertion, pain pump, left hip replacement Past Anesthesia/Blood Transfusion Reactions: No Reported Reaction Type of Cardiac Device: Permanent Pacemaker Device Placement Date:: 2018 Past Psychological History: Anxiety, Bipolar, Depression Past Drug Use History: None Reported - Past Family History Father Family Medical History: Cancer, COPD, Hearing Disorder / Deafness Mother Family Medical History: COPD General Exam General appearance: alert, in no apparent distress Head exam: Present: atraumatic, normocephalic, normal inspection Eye exam: Present: normal appearance, PERRL, EOMI. Absent: scleral icterus, conjunctival injection, periorbital swelling ENT exam: Present: normal exam, mucous membranes moist Neck exam: Present: normal inspection. Absent: tenderness, meningismus, lymphadenopathy Respiratory exam: Present: normal lung sounds bilaterally. Absent: respiratory distress, wheezes, rales, rhonchi, stridor Cardiovascular Exam: Present: regular rate, normal rhythm, normal heart sounds. Absent: systolic murmur, diastolic murmur, rubs, gallop, clicks GI/Abdominal exam: Present: soft, normal bowel sounds. Absent: distended, tenderness, guarding, rebound, rigid Extremities exam: Present: normal inspection, full ROM, normal capillary refill. Absent: tenderness, pedal edema, joint swelling, calf tenderness Back exam: Present: normal inspection Neurological exam: Present: alert, oriented X3, CN II-XII intact Psychiatric exam: Present: normal affect, normal mood Skin exam: Present: warm, dry, intact, normal color. Absent: rash Course Vital Signs 11/19/22 11/19/22 11/19/22 15:49 15:55 20:03 Temperature 97.9 F Pulse Rate 61 90 60 Respiratory 18 18 18 Rate Blood Pressure 177/92 161/85 158/90 O2 Sat by Pulse 99 96 95 Oximetry - Reevaluation(s) Reevaluation #1: 11/19/22 19:03 Medical record is reviewed Reevaluation #2: 11/19/22 19:03 Patient symptoms unchanged Reevaluation #3: 11/19/22 19:03 Patient informed results questions answered Reevaluation #4: 11/19/22 15:50 Was pt. sent in by a medical professional or institution? @ -no Did you speak to anyone other than the patient for history? @ -no Did you review nursing and triage notes? @ -agree Were old charts reviewed? @ -yes Differential Diagnosis? @ -prior EKG interpreted by me (3pts min.)? @ -yes X-rays interpreted by me (1pt min.)? @ -yes CT interpreted by me (1pt min.)? @ -no U/S interpreted by me (1pt. min.)? @ -no What testing was considered but not performed? (CT, X-rays, U/S, labs)? Why? @ -no What meds were considered but not given? Why? @ -no Did you discuss the management of the patient with other professionals? @ -no Did you reconcile home meds? @ -no Was smoking cessation discussed for >3mins.? @ -no Was critical care preformed (if so, how long)? @ -no Were there social determinants of health that impacted care today? How? (Homelessness, low income, unemployed, alcoholism, drug addiction, transportation, low edu. Level, literacy, decrease access to med. care, retirement, rehab)? @ -no Was there de-escalation of care discussed even if they declined? (Discuss DNR or withdrawal of care, Hospice)? @ -no What co-morbidities impacted this encounter? (DM, HTN, Smoking, COPD, CAD, Can cer, CVA, Hep., AIDS, mental health diagnosis, sleep apnea, morbid obesity)? @ -none Was patient admitted / discharged? @ - Undiagnosed new problem with uncertain prognosis? @ -no Drug Therapy requiring intensive monitoring for toxicity (Heparin, Nitro, Insulin, Cardizem)? @ -no Were any procedures done? @ -no Diagnosis/symptom? @ - Acute, or Chronic, or Acute on Chronic? @ -acute Uncomplicated (without systemic symptoms) or Complicated (systemic symptoms)? @ -complicated Side effects of treatment? @ -no Exacerbation, Progression, or Severe Exacerbation] @ -no Poses a threat to life or bodily function? @ -yes - Consultations Consultation #1: Spoke with admitting physicians who agree to admit the patient Medical Decision Making - Medical Decision Making 66 male DF for evaluation patient resents today for evaluation regards to abdominal pain severe cancer pain severe. Patient [place] for symptom management - Lab Data Result diagrams: 11/19/22 16:05 11/19/22 16:05 Lab Results 11/19/22 11/19/22 11/19/22 Range/Units 16:05 16:05 16:05 WBC 7.6 (3.8-10.6) k/uL RBC 3.46 L (4.30-5.90) m/uL Hgb 11.3 L (13.0-17.5) gm/dL Hct 35.3 L (39.0-53.0) % MCV 102.0 H (80.0-100.0) fL MCH 32.7 (25.0-35.0) pg MCHC 32.1 (31.0-37.0) g/dL RDW 14.3 (11.5-15.5) % Plt Count 207 (150-450) k/uL MPV 7.8 Neutrophils % 88 % Lymphocytes % 3 % Monocytes % 7 % Eosinophils % 1 % Basophils % 0 % Neutrophils # 6.7 (1.3-7.7) k/uL Lymphocytes # 0.2 L (1.0-4.8) k/uL Monocytes # 0.5 (0-1.0) k/uL Eosinophils # 0.0 (0-0.7) k/uL Basophils # 0.0 (0-0.2) k/uL Macrocytosis Slight Sodium 137 (137-145) mmol/L Potassium 3.7 (3.5-5.1) mmol/L Chloride 103 (98-107) mmol/L Carbon Dioxide 22 (22-30) mmol/L Anion Gap 12 mmol/L BUN 18 (9-20) mg/dL Creatinine 0.58 L (0.66-1.25) mg/dL Est GFR (CKD-EPI)AfAm >90 (>60 ml/min/1.73 sqM) Est GFR (CKD-EPI)NonAf >90 (>60 ml/min/1.73 sqM) Glucose 179 H (74-99) mg/dL Plasma Lactic Acid Cody 1.4 (0.7-2.0) mmol/L Calcium 8.4 (8.4-10.2) mg/dL Total Bilirubin 0.8 (0.2-1.3) mg/dL AST 110 H (17-59) U/L ALT 23 (4-49) U/L Alkaline Phosphatase 219 H (38-126) U/L Total Protein 6.8 (6.3-8.2) g/dL Albumin 3.9 (3.5-5.0) g/dL Amylase 49 (30-110) U/L Lipase 38 (23-300) U/L Disposition Clinical Impression: Weakness, Abdominal pain, Pancreatic mass, Pain, cancer Disposition: ADMITTED IP TO THIS HOSP Condition: Good Is patient prescribed a controlled substance at d/c from ED?: No Time of Disposition: 19:00
[2022-11-19 16:16] LABS: Basophils % (A) 0 %; Eosinophils % (A) 1 %; HCT 35.3 % (39.0-53.0); HGB 11.3 gm/dL (13.0-17.5); Lymphocytes # (A) 0.2 k/uL (1.0-4.8); Lymphocytes % (A) 3 %; MCH 32.7 pg (25.0-35.0); MCHC 32.1 g/dL (31.0-37.0); Macrocytosis Slight; Mean Platelet Volume 7.8; Monocytes # (A) 0.5 k/uL (0-1.0); Monocytes % (A) 7 %; Neutrophils # (A) 6.7 k/uL (1.3-7.7); Neutrophils % (A) 88 %; Platelet Count 207 k/uL (150-450); RBC 3.46 m/uL (4.30-5.90); RDW 14.3 % (11.5-15.5); WBC 7.6 k/uL (3.8-10.6)
[2022-11-19 16:22] LABS: ALT 23 U/L (4-49); AST 110 U/L (17-59); African American GFR (CKD) >90 (>60 ml/min/1.73 sqM); Albumin 3.9 g/dL (3.5-5.0); Alkaline Phosphatase 219 U/L (38-126); Amylase 49 U/L (30-110); Anion Gap 12 mmol/L; Blood Urea Nitrogen 18 mg/dL (9-20); Calcium 8.4 mg/dL (8.4-10.2); Carbon Dioxide 22 mmol/L (22-30); Chloride 103 mmol/L (98-107); Glucose 179 mg/dL (74-99); Lipase 38 U/L (23-300); Non-African American GFR(CKD) >90 (>60 ml/min/1.73 sqM); Potassium 3.7 mmol/L (3.5-5.1); Sodium 137 mmol/L (137-145); Total Bilirubin 0.8 mg/dL (0.2-1.3); Total Protein 6.8 g/dL (6.3-8.2)
[2022-11-19] MEDS ORDERED: NALOXONE 0.4 MG/ML 1 ML VIAL IV PRN (18:59)
[2022-11-19] MEDS ORDERED: MORPHINE SULFATE 4 MG/ML SYRINGE IV PRN (18:59)
[2022-11-19] MEDS ORDERED: ONDANSETRON 4 MG/2 ML VIAL IVP PRN (18:59)
[2022-11-19] MEDS: MORPHINE SULFATE 4 MG/ML SYRINGE IVP STA ×2 (19:08→19:09)
[2022-11-19] MEDS ORDERED: KETOROLAC 15 MG/ML 1 ML VIAL IVP STA (19:10)
[2022-11-19] MEDS: SODIUM CHLORIDE 0.9% 1,000 ML IV SCH (19:52)
[2022-11-19] MEDS ORDERED: MAGNESIUM HYDROXIDE 2,400 MG/30 ML CUP PO PRN (21:55)
[2022-11-19] MEDS ORDERED: HYDROmorphone 1 MG/ML 1 ML SYRINGE IVP PRN (22:00)
[2022-11-19] MEDS ORDERED: QUEtiapine 200 MG TAB PO SCH (22:00)
[2022-11-19] MEDS ORDERED: DEXTROSE 50% SYRINGE 50 ML IVP PRN ×2 (22:02)
[2022-11-19] MEDS: carBAMazepine 200 MG TAB PO SCH (22:16)
[2022-11-19] MEDS: KETOROLAC 15 MG/ML 1 ML VIAL IVP PRN (22:16)
[2022-11-19] MEDS: VENLAFAXINE HCL 50 MG TAB PO SCH (22:16)
[2022-11-19] MEDS: clonazePAM 1 MG TAB PO SCH (22:16)
[2022-11-20 06:20] LABS: Glucose,Whole Blood 96 mg/dL (70-110)
[2022-11-20] MEDS: INSULIN ASPART (NovoLOG) 100 UNIT/ML VIAL SQ SCH ×2 (06:21→12:55)
[2022-11-20] MEDS ORDERED: LEVOTHYROXINE 75 MCG TAB PO SCH (07:00)
[2022-11-20 08:03] VITALS: RESP 13
[2022-11-20] MEDS: KETOROLAC 15 MG/ML 1 ML VIAL IVP PRN (08:06)
[2022-11-20 08:10] LABS: Appearance,Urine Clear (Clear); Bilirubin,Urine Negative (Negative); Blood,Urine Negative (Negative); Color,Urine Yellow; Glucose,Urine (UA) 1+ (Negative); Ketones,Urine Negative (Negative); Leukocyte Esterase,Urine Negative (Negative); Mucus,Urine Rare /hpf; Nitrite,Urine Negative (Negative); PH, Urine 5.5 (5.0-8.0); Protein,Urine 1+ (Negative); RBC,Urine 1 /hpf (0-5); Specific Gravity,Urine 1.022 (1.001-1.035); Urobilinogen,Urine <2.0 mg/dL (<2.0); WBC,Urine 1 /hpf (0-5)
[2022-11-20] MEDS ORDERED: NON FORMULARY DRUG (Morphine Pain Pump 1 DOSE) IV SCH (08:30)
[2022-11-20] MEDS: clonazePAM 1 MG TAB PO SCH ×2 (08:54→16:05)
[2022-11-20] MEDS: VENLAFAXINE HCL 50 MG TAB PO SCH ×2 (08:54→16:05)
[2022-11-20] MEDS: carBAMazepine 200 MG TAB PO SCH (08:55)
[2022-11-20] MEDS ORDERED: ATORVASTATIN 40 MG TAB PO SCH (09:00)
[2022-11-20] MEDS ORDERED: buPROPion XL 300 MG TAB.ER.24H PO SCH (09:00)
[2022-11-20] MEDS ORDERED: LOSARTAN 50 MG TAB PO SCH (09:00)
[2022-11-20] MEDS ORDERED: buPROPion XL 150 MG TAB.ER.24H PO SCH (09:00)
[2022-11-20] MEDS ORDERED: DILTIAZEM CD 180 MG CAP.ER.24H PO SCH (09:00)
[2022-11-20] MEDS ORDERED: SENNOSIDES-DOCUSATE SODIUM 1 EACH TAB PO SCH (09:00)
[2022-11-20] MEDS: HEPARIN SODIUM,PORCINE/PF 5,000 UNIT/0.5 ML SYRINGE SQ SCH ×2 (09:04→16:11)
[2022-11-20] MEDS: SODIUM CHLORIDE 0.9% 1,000 ML IV SCH (09:04)
[2022-11-20] MEDS ORDERED: PROCHLORPERAZINE INJ 10 MG/2 ML VIAL IVP STA (12:40)
[2022-11-20] MEDS ORDERED: KETOROLAC 15 MG/ML 1 ML VIAL IVP STA (12:40)
[2022-11-20] MEDS ORDERED: diphenhydrAMINE 50 MG/ML 1 ML VIAL IVP STA (12:40)
--- NOTE | 2022-11-20 12:44 | P.HPIM ---
History of Present Illness H&P Date: 11/20/22 Patient initially admitted under wrong hospitalist group, we were notified of a dmission of patient at 6:47 AM. History of Presenting Illness: Patient is a very pleasant 66-year-old male with a past medical history of CAD, previous [place], and a permanent pacemaker placement, hypertension, hyperlipidemia, hypothyroidism, insulin-dependent diabetes mellitus, anxiety, depression, chronic pain with pain pump, and recent diagnosis of lesions of his liver and ma ss/lesion in the region of the pancreatic head. He presented to the emergency department overnight with a chief complaint of uncontrolled abdominal pain. Patient underwent recent hospitalization from 11/12/22 through 11/16/22 for same complaint. During this admission patient was evaluated by gastroenterology and oncology and was transitioned to immediate release morphine for breakthrough pain and scheduled to follow-up outpatient for biopsy for further management. Patient reports since discharge he has continued to struggle with pain management. Patient reports he has an appointment with [facility] for repeat biopsy to be completed tomorrow morning at 7 AM. Patient reports continued loss of appetite, intractable nausea and vomiting, and tenderness to the right upper quadrant and epigastric region. In ddition, patient reports persistent headache. Patient denies any fevers, chills, diaphoresis, dizziness, lightheadedness, chest pain, palpitations, shortness of breath, or experiencing any numbness/tingling/weakness in his extremities. Patient underwent full evaluation in the emergency department. Labs completed and reviewed. CBC showing stable macrocytic anemia with hemoglobin of 11.3. BMP unremarkable with the exception of slightly elevated blood glucose of 179. Lactic acid normal findings at 1.4. Liver enzymes revealing elevated AST of 110 and alkaline phosphatase of 219. Urinalysis negative for infection. Review of systems: Pertinent positives and negatives as discussed in HPI, a complete review of systems was performed and all other systems are negative. Physical exam: Patient seen and fully evaluated at the bedside this morning. Patient tolerating clear liquid diet. Plans to advance clear liquid diet to full liquid and advance as patient tolerates. Once patient tolerating regular diet, may plan for discharge. Vital signs reviewed and stable. General: Nontoxic, no distress and appears stated age. Derm: Skin warm and dry, normal coloration for ethnicity. Head: Atraumatic, normocephalic and symmetric. Eyes: EOMs intact, no lid lag, and anicteric sclera Mouth: no lip lesions, mucus membranes moist Cardiovascular: regular rate and rhythm with normal S1S2, no murmur, positive posterior tibial pulses bilaterally, and cap refill < 2 seconds. Lungs: Respirations even, regular, and unlabored on room air. Lungs CTA bilaterally, no rhonchi, no rales, no wheezing, and no accessory muscle usage. Abdominal: soft, tenderness to palpation in right upper quadrant,, no guarding, no appreciable organomegaly Ext: ROM intact. No gross muscle atrophy, no edema, no contractures Neuro: Speech clear, face symmetrical and CN II-XII grossly intact with no noted focal neuro deficits Psych: Alert and oriented to person, place, time, and situation. Appropriate and pleasant affect. Assessment and Plan of Care: Intractable Abdominal pain, secondary to metastatic process with concerns of pancreatic and metastatic liver masses Intractable nausea and vomiting Anorexia with unintentional weight loss Weakness and fatigue secondary to above Elevated liver enzymes, likely secondary to metastatic process - Patient underwent recent hospitalization from 11/12/22 through 11/16/22 for same complaint. During this admission patient was evaluated by gastroenterology and oncology and was transitioned to immediate release morphine for breakthrough pa in and scheduled to follow-up outpatient for biopsy for further management. -Labs completed and reviewed. CBC showing stable macrocytic anemia with hemoglobin of 11.3. BMP unremarkable with the exception of slightly elevated blood glucose of 179. Lactic acid normal findings at 1.4. Liver enzymes revealing elevated AST of 110 and alkaline phosphatase of 219. Urinalysis negative for infection. -Symptomatic care and pain management. -IV fluid with 0.9% normal saline at 75 mL's per hour. -Oncology consulted, appreciate recommendations. -We will repeat CMP tomorrow morning to follow-up/monitor for improvement of elevated liver enzymes Headache and visual hallucinations -Patient reports visual hallucinations over the past 24 hours along with persistent headache. -Order placed for CT head and migraine cocktail consisting of Toradol 15 mg IVP, Compazine 10 mg IVP, and Benadryl 50 mg IVP 1 dose. Hypertension -Monitor vital signs and continue daily medication regimen with Cardizem 180 mg daily and Cozaar 100 mg daily. Hypothyroidism -Continue daily medication regimen with Synthroid 75 g daily. Insulin-dependent diabetes mellitus -Continue glycemic protocol with NovoLog sliding scale. Anxiety and depression Continue daily medication regimen with Wellbutrin 450 mg daily, Tegretol 400 mg twice daily, Klonopin 1 mg 3 times daily, Seroquel 400 mg nightly, and Effexor 100 mg 3 times daily. Chronic back pain -Patient has implanted morphine pump in place. Data review: Vital signs reviewed and stable. Vital signs upon arrival to facility as follows, blood pressure 177/92, heart rate 61, respiratory rate 18, temp 97.9F, and SpO2 of 99% on room air. Upon notification of admission this morning patient's vital signs 126/71, heart rate 61, respiratory rate 13, temp 99.5F, and SpO2 of 90% on room air. Imaging reviewed: No new imaging for review. We will follow up on CT head ordered. The patient is admitted with an anticipated less than 2 midnight stay for evalua tion of uncontrolled cancer pain CODE STATUS: DO NOT RESUSCITATE/DO NOT INTUBATE DVT prophylaxis: Heparin Discussed with: Patient and RN Anticipated discharge date: Clinical course to determine Anticipated discharge place: Home Patient was seen independently by Nurse Practitioner. This document was prepared using [employer] dictation software. Please allow for errors in help desk representative while rare they do occur. Solis Sutton NP rendered care for this patient independently, reviewed the findings and plan as documented in the note above. I did not physically speak with or examine the patient on this date. Past Medical History Past Medical History: Atrial Fibrillation, Coronary Artery Disease (CAD), COPD, Diabetes Mellitus, Hyperlipidemia, Hypertension, Myocardial Infarction ([place]), Thyroid Disorder Additional Past Medical History / Comment(s): [place] 2019, hypothyroid Last Myocardial Infarction Date:: 2018 History of Any Multi-Drug Resistant Organisms: None Reported Past Surgical History: Joint Replacement, Pacemaker Additional Past Surgical History / Comment(s): pacemaker insertion, pain pump, left hip replacement Past Anesthesia/Blood Transfusion Reactions: No Reported Reaction Type of Cardiac Device: Permanent Pacemaker Device Placement Date:: 2018 Past Psychological History: Anxiety, Bipolar, Depression Smoking Status: Former smoker, Vaper Past Alcohol Use History: Abuse, Daily Additional Past Alcohol Use History / Comment(s): Hx of daily ETOH 30 years ago. Past Drug Use History: None Reported - Past Family History Father Family Medical History: Cancer, COPD, Hearing Disorder / Deafness Mother Family Medical History: COPD Medications and Allergies Home Medications Medication Instructions Recorded Confirmed Type Diltiazem Cd [Cardizem CD] 180 mg PO DAILY 07/14/21 11/19/22 History Levothyroxine Sodium [Synthroid] 75 mcg PO DAILY 07/14/21 11/19/22 History Losartan Potassium 100 mg PO DAILY 07/14/21 11/19/22 History QUEtiapine [SEROquel] 400 mg PO HS 07/14/21 11/19/22 History buPROPion HCL [Wellbutrin XL] 300 mg PO DAILY 07/14/21 11/19/22 History buPROPion XL [Wellbutrin XL] 150 mg PO DAILY 07/14/21 11/19/22 History carBAMazepine [TEGretol] 400 mg PO BID 07/14/21 11/19/22 History clonazePAM [KlonoPIN] 1 mg PO TID 07/14/21 11/19/22 History Venlafaxine HCl [Effexor] 100 mg PO TID 07/15/21 11/19/22 History Butalbital/Acetaminophen 50-325mg 1 tab PO BID PRN 10/01/22 11/19/22 History Insulin Aspart Prot/Insuln Asp 1 - 15 units SQ AC-BID PRN 10/01/22 11/19/22 History [Relion Novolog Mix 70-30 Flxpn] Relaxium-Sleep Otc 2 cap PO HS 10/01/22 11/19/22 History Atorvastatin [Lipitor] 40 mg PO DAILY 10/15/22 11/19/22 History Morphine Pain Pump 1 dose INTRATHECA DIRECTED 10/15/22 11/19/22 History metFORMIN HCL [Glucophage] 1,000 mg PO BID 10/15/22 11/19/22 History Magnesium Hydroxide [Milk of 2,400 mg PO DAILY PRN #1000 ml 11/16/22 11/19/22 Rx Magnesia] Morphine Sulfate Ir [MSIR] 15 mg PO Q4HR PRN #30 tab 11/16/22 11/19/22 Rx Sennosides-Docusate Sodium 1 each PO BID #60 tab 11/16/22 11/19/22 Rx [Senokot-S] Allergies Allergy/AdvReac Type Severity Reaction Status Date / Time Penicillins Allergy Unknown Verified 11/19/22 17:14 Physical Exam Vitals: Vital Signs Temp Pulse Pulse Resp BP BP Pulse Ox 11/20/22 07:20 99.5 F 61 13 126/71 98 07/05/23 03:10 98.3 F 73 16 138/64 97 11/19/22 21:30 98.2 F 62 17 164/77 100 11/19/22 20:56 60 18 161/89 95 11/19/22 20:03 60 18 158/90 95 11/19/22 15:55 90 18 161/85 96 11/19/22 15:49 97.9 F 61 18 177/92 99 Intake and Output 11/19/22 11/20/22 11/20/22 22:59 06:59 14:59 Other: Voiding Method Toilet # Voids 0 1 Weight 73.482 kg Results CBC & Chem 7: 11/19/22 16:05 11/19/22 16:05 Labs: Abnormal Lab Results - Last 24 Hours (Table) 11/19/22 11/19/22 Range/Units 16:05 16:05 RBC 3.46 L (4.30-5.90) m/uL Hgb 11.3 L (13.0-17.5) gm/dL Hct 35.3 L (39.0-53.0) % MCV 102.0 H (80.0-100.0) fL Lymphocytes # 0.2 L (1.0-4.8) k/uL Creatinine 0.58 L (0.66-1.25) mg/dL Glucose 179 H (74-99) mg/dL AST 110 H (17-59) U/L Alkaline Phosphatase 219 H (38-126) U/L
[2022-11-20 12:52] LABS: Glucose,Whole Blood 87 mg/dL (70-110)
[2022-11-20 13:27] LABS: INR 1.4 (<1.2); Prothrombin Time 14.3 sec (9.0-12.0)
--- NOTE | 2022-11-20 14:03 | CT ---
EXAMINATION TYPE: CT brain wo con CT DLP: 1239 mGycm, Automated exposure control for dose reduction was used. DATE OF EXAM: 11/20/2022 1:57 PM COMPARISON: No direct comparisons CLINICAL INDICATION:Male, 66 years old with history of Headache, visual hallucinations, Headache, vis ual hallucinations TECHNIQUE: Brain: Multiple axial CT images of the brain were obtained without IV contrast. Coronal sagittal refo rmats reviewed. FINDINGS: Brain: Extra-axial spaces: No abnormal extra-axial fluid collections. Ventricular system: Within normal limits Cerebral parenchyma: No acute intraparenchymal hemorrhage or mass effect. The garcía-white junction is well differentiated. Scattered hypoattenuating areas are seen within the white matter. Nonspecific bilateral basal ganglia calcifications. Cerebellum: Unremarkable. Mass effect: No evidence of midline shift. Intracranial vasculature: Atherosclerotic calcifications of the intracranial vessels. Soft tissues: Normal. Calvarium/osseous structures: No depressed skull fracture. Paranasal sinuses and mastoid air cells: Clear Visualized orbits: Orbital contents are intact. IMPRESSION: 1. No acute intracranial process. 2. Nonspecific white matter changes, likely secondary to chronic small vessel ischemic disease.
[2022-11-20] MEDS ORDERED: MORPHINE SULFATE 4 MG/ML SYRINGE IVP PRN (14:29)
[2022-11-20 14:43] VITALS: BP 109/68; PULSE 56; TEMP 98.4
--- NOTE | 2022-11-20 16:57 | P.DS ---
Providers Date of admission: 11/19/22 18:59 Expected date of discharge: 11/20/22 Attending physician: Abad Ordoñez MD Consults: 11/19/22 18:59 Consult Physician Routine Consulting Provider: Jaime Rosado Consult Reason/Comments: known Do you want consulting provider notified?: Yes Primary care physician: Luis Manuel Loaiza MD Hospital Course: Discharge Diagnosis: Intractable Abdominal pain, secondary to metastatic process with concerns of pancreatic and metastatic liver masses. Intractable nausea and vomiting, resolved. Patient tolerating regular diet. Anorexia with unintentional weight loss Weakness and fatigue secondary to above Elevated liver enzymes, likely secondary to metastatic process. Headache and visual hallucinations, CT brain was negative for acute intracranial process. Patient was given migraine cocktail resulting in resolution of both headache and reported visual hallucinations. Hypertension. Monitor vital signs and continue daily medication regimen with Cardizem 180 mg daily and Cozaar 100 mg daily. Hypothyroidism. Continue daily medication regimen with Synthroid 75 g daily. Insulin-dependent diabetes mellitus, continue home metformin and insulin as previously prescribed. Anxiety and depression. Continue daily medication regimen with Wellbutrin 450 mg daily, Tegretol 400 mg twice daily, Klonopin 1 mg 3 times daily, Seroquel 400 mg nightly, and Effexor 100 mg 3 times daily. Chronic back pain. Patient has implanted morphine pump in place and to continue to follow up outpatient with pain management/neurologist for continued management.. Hospital Course: Patient is a very pleasant 66-year-old male with a past medical history of CAD, previous [place], and a permanent pacemaker placement, hypertension, hyperlipidemia, hypothyroidism, insulin-dependent diabetes mellitus, anxiety, depression, chronic pain with pain pump, and recent diagnosis of lesions of his liver and mass/lesion in the region of the pancreatic head. He presented to the emergency department overnight with a chief complaint of uncontrolled abdominal pain. Patient underwent recent hospitalization from 11/12/22 through 11/16/22 for same complaint. During this admission patient was evaluated by gastroenterology and oncology and was transitioned to immediate release morphine for breakthrough pain and scheduled to follow-up outpatient for biopsy for further management. Patient reports since discharge he has continued to struggle with pain management. Patient reports he has an appointment with [facility] for repeat biopsy to be completed tomorrow morning at 7 AM. Patient reports continued loss of appetite, intractable nausea and vomiting, and tenderness to the right upper quadrant and epigastric region. In ddition, patient reports persistent headache. Patient denies any fevers, chills, diaphoresis, dizziness, lightheadedness, chest pain, palpitations, shortness of breath, or experiencing any numbness/tingling/weakness in his extremities. Patient underwent full evaluation in the emergency department. Labs completed and reviewed. CBC showing stable macrocytic anemia with hemoglobin of 11.3. BMP unremarkable with the exception of slightly elevated blood glucose of 179. Lactic acid normal findings at 1.4. Liver enzymes revealing elevated AST of 110 and alkaline phosphatase of 219. Urinalysis negative for infection. Patient was admitted under our services with consultation oncology. Pain medications adjusted by oncology. Patient did have episode of headache and reported visual hallucinations stating that he saw bugs crawling. Possible side effect of medications. Patient did undergo CT head which was negative for acute intercranial process, showing nonspecific white matter changes likely secondary to chronic small vessel ischemic disease. Patient was also given migraine cocktail consisting of Toradol, Compazine, and Benadryl. Patient reports headache and visual hallucinations have resolved. Currently patient's pain is being managed and he is requesting discharge as he has an appointment with [facility] to undergo repeat biopsy of liver mass secondary to initial biopsy being inconclusive. Discussed with oncologist. Patient is being discharged at this time, oncology ascending prescription for extended release mo rphine. Patient to follow-up as scheduled with [facility] team for scheduled biopsy tomorrow morning and to follow up outpatient with PCP in 1-2 days and oncologist next week. Physical exam: Vital signs reviewed and stable. General: Nontoxic, no distress and appears stated age. Derm: Skin warm and dry, normal coloration for ethnicity. Head: Atraumatic, normocephalic and symmetric. Eyes: EOMs intact, no lid lag, and anicteric sclera Mouth: no lip lesions, mucus membranes moist Cardiovascular: regular rate and rhythm with normal S1S2, no murmur, positive posterior tibial pulses bilaterally, and cap refill < 2 seconds. Lungs: Respirations even, regular, and unlabored on room air. Lungs CTA bilaterally, no rhonchi, no rales, no wheezing, and no accessory muscle usage. Abdominal: soft, tenderness to palpation in right upper quadrant,, no guarding, no appreciable organomegaly Ext: ROM intact. No gross muscle atrophy, no edema, no contractures Neuro: Speech clear, face symmetrical and CN II-XII grossly intact with no noted focal neuro deficits Psych: Alert and oriented to person, place, time, and situation. Appropriate and pleasant affect. A total of 32 minutes of time were spent preparing this complex discharge summary. Pt was discharged on 11/20/22 at 4:44 PM. Patient was seen independently by Nurse Practitioner. This document was prepared using [employer] dictation software. Please allow for errors in hide curer while rare they do occur. Solis Sutton NP rendered care for this patient independently, reviewed the findings and plan as documented in the note above. I did not physically speak with or examine the patient on this date. Patient Condition at Discharge: Stable Plan - Discharge Summary New Discharge Prescriptions: Continue clonazePAM [KlonoPIN] 1 mg PO TID Diltiazem Cd [Cardizem CD] 180 mg PO DAILY Levothyroxine Sodium [Synthroid] 75 mcg PO DAILY Losartan Potassium 100 mg PO DAILY Relaxium-Sleep Otc 2 cap PO HS Insulin Aspart Prot/Insuln Asp [Relion Novolog Mix 70-30 Flxpn] 1 - 15 units SQ AC-BID PRN PRN Reason: High Sugar Butalbital/Acetaminophen 50-325mg 1 tab PO BID PRN PRN Reason: Migraine Headache Atorvastatin [Lipitor] 40 mg PO DAILY metFORMIN HCL [Glucophage] 1,000 mg PO BID Magnesium Hydroxide [Milk of Magnesia] 2,400 mg PO DAILY PRN #1000 ml PRN Reason: Constipation QUEtiapine [SEROquel] 400 mg PO HS carBAMazepine [TEGretol] 400 mg PO BID buPROPion XL [Wellbutrin XL] 150 mg PO DAILY buPROPion HCL [Wellbutrin XL] 300 mg PO DAILY Venlafaxine HCl [Effexor] 100 mg PO TID Morphine Pain Pump 1 dose INTRATHECA DIRECTED Sennosides-Docusate Sodium [Senokot-S] 1 each PO BID #60 tab No Action Morphine Sulfate Ir [MSIR] 15 mg PO Q4HR PRN #30 tab PRN Reason: Pain Discharge Medication List Diltiazem Cd [Cardizem CD] 180 mg PO DAILY 07/14/21 [History] Levothyroxine Sodium [Synthroid] 75 mcg PO DAILY 07/14/21 [History] Losartan Potassium 100 mg PO DAILY 07/14/21 [History] QUEtiapine [SEROquel] 400 mg PO HS 07/14/21 [History] buPROPion HCL [Wellbutrin XL] 300 mg PO DAILY 07/14/21 [History] buPROPion XL [Wellbutrin XL] 150 mg PO DAILY 07/14/21 [History] carBAMazepine [TEGretol] 400 mg PO BID 07/14/21 [History] clonazePAM [KlonoPIN] 1 mg PO TID 07/14/21 [History] Venlafaxine HCl [Effexor] 100 mg PO TID 07/15/21 [History] Butalbital/Acetaminophen 50-325mg 1 tab PO BID PRN 10/01/22 [History] Insulin Aspart Prot/Insuln Asp [Relion Novolog Mix 70-30 Flxpn] 1 - 15 units SQ AC-BID PRN 10/01/22 [History] Relaxium-Sleep Otc 2 cap PO HS 10/01/22 [History] Atorvastatin [Lipitor] 40 mg PO DAILY 10/15/22 [History] Morphine Pain Pump 1 dose INTRATHECA DIRECTED 10/15/22 [History] metFORMIN HCL [Glucophage] 1,000 mg PO BID 10/15/22 [History] Magnesium Hydroxide [Milk of Magnesia] 2,400 mg PO DAILY PRN #1000 ml 11/16/22 [Rx] Morphine Sulfate Ir [MSIR] 15 mg PO Q4HR PRN #30 tab 11/16/22 [Rx] Sennosides-Docusate Sodium [Senokot-S] 1 each PO BID #60 tab 11/16/22 [Rx] Follow up Appointment(s)/Referral(s): Jaime Rosado MD [STAFF PHYSICIAN] - 1 Week Luis Manuel Loaiza MD [Primary Care Provider] - 1-2 days Patient Instructions/Handouts: Acute Abdominal Pain (DC) Activity/Diet/Wound Care/Special Instructions: Activity: As tolerated. Take breaks as needed. Diet: Heart healthy and carb consistent diet. Avoid salts, or foods with hidden salts such as canned or boxed foods and frozen dinners. Extra salt makes your heart work harder and traps the fluid in your body for longer. Special Instructions: Take all of your medications as directed and remember to keep all of your doctor's appointments and follow-up as needed. You're being discharged so that you can make her appointment with [facility] for biopsy tomorrow morning as scheduled at 7 AM.. Discussed with ping pong table assembler/oncologist and they are going to be starting you on extended release morphine and will be sending prescription to pharmacy. It is very important to call oncology clinic if your pain is uncontrolled so they can further adjust your medications. Thank you for allowing us to participate in your care, it was truly a pleasure having you for our patient!!!
--- NOTE | 2022-11-25 15:47 | P.CONS ---
History of Present Illness - Reason for Consult Consult date: 11/20/22 hx liver lesions Requesting physician: Darren oLve - Chief Complaint abdominal and back pain - History of Present Illness Patient is a 66-year-old male with a significant history of a recently diagnosed hepatic lesions, however, unfortunately his liver biopsy was non-diagnostic, and has another biopsy scheduled for 11/21/22 at [facility]. PET/CT on 10/19/22 revealed 3 ob servations within the liver with peripheral metabolic activity. The largest is in the right hepatic lobe measuring up to 12.0 cm. No evidence for lymphadenopathy or suspicious areas of FDG activity area. Etiology is uncertain. Left upper lobe 5 mm pulmonary nodule. Area within the pancreatic head does not demonstrate increased FDG activity, likely represents a cyst. Patient was seen in the clinic on 11/04/22 and at that time was offered morphine ER for better pain control, but patient declined and stated he wanted to f/u with his pain specialist. Pt was given morphine IR and instructed to discuss further pain management with pain specialist. Patient presented to the emergency room for abdominal pain and back pain. Pt does have history of chronic back pain and has pain pump and is being managed by pain management. Patient reports pain is in the epigastric and right upper quadrant. He also reports nausea vomiting and diarrhea yesterday but has since resolved. Of note patient was discharged 4 days ago with similar complaints and at that time had gallbladder ultrasound which revealed hepatic masses and mass lesion in the region of the pancreatic head. CT abdomen pelvis revealed enlarging masses within the liver consistent with metastatic disease progression and unchanged lesion in the pancreatic neck. Hemoglobin 11.3, WBC 7.6, platelets 207,000. ALP 219, AST 110, ALT 23, bilirubin 0.8. Review of Systems 10 point ROS is negative except as stated in the HPI Past Medical History Past Medical History: Atrial Fibrillation, Coronary Artery Disease (CAD), COPD, Diabetes Mellitus, Hyperlipidemia, Hypertension, Myocardial Infarction (MT), Thyroid Disorder Additional Past Medical History / Comment(s): MT 2019, hypothyroid Last Myocardial Infarction Date:: 2018 History of Any Multi-Drug Resistant Organisms: None Reported Past Surgical History: Joint Replacement, Pacemaker Additional Past Surgical History / Comment(s): pacemaker insertion, pain pump, left hip replacement Past Anesthesia/Blood Transfusion Reactions: No Reported Reaction Type of Cardiac Device: Permanent Pacemaker Device Placement Date:: 2019 Past Psychological History: Anxiety, Bipolar, Depression Smoking Status: Former smoker, Vaper Past Alcohol Use History: Abuse, Daily Additional Past Alcohol Use History / Comment(s): Hx of daily ETOH 30 years ago. Past Drug Use History: None Reported - Past Family History Father Family Medical History: Cancer, COPD, Hearing Disorder / Deafness Mother Family Medical History: COPD Medications and Allergies Home Medications Medication Instructions Recorded Confirmed Type Diltiazem Cd [Cardizem CD] 180 mg PO DAILY 07/14/21 11/19/22 History Levothyroxine Sodium [Synthroid] 75 mcg PO DAILY 07/14/21 11/19/22 History Losartan Potassium 100 mg PO DAILY 07/14/21 11/19/22 History QUEtiapine [SEROquel] 400 mg PO HS 07/14/21 11/19/22 History buPROPion HCL [Wellbutrin XL] 300 mg PO DAILY 07/14/21 11/19/22 History buPROPion XL [Wellbutrin XL] 150 mg PO DAILY 07/14/21 11/19/22 History carBAMazepine [TEGretol] 400 mg PO BID 07/14/21 11/19/22 History clonazePAM [KlonoPIN] 1 mg PO TID 07/14/21 11/19/22 History Venlafaxine HCl [Effexor] 100 mg PO TID 07/15/21 11/19/22 History Butalbital/Acetaminophen 50-325mg 1 tab PO BID PRN 10/01/22 11/19/22 History Insulin Aspart Prot/Insuln Asp 1 - 15 units SQ AC-BID PRN 10/01/22 11/19/22 History [Relion Novolog Mix 70-30 Flxpn] Relaxium-Sleep Otc 2 cap PO HS 10/01/22 11/19/22 History Atorvastatin [Lipitor] 40 mg PO DAILY 10/15/22 11/19/22 History Morphine Pain Pump 1 dose INTRATHECA DIRECTED 10/15/22 11/19/22 History metFORMIN HCL [Glucophage] 1,000 mg PO BID 10/15/22 11/19/22 History Magnesium Hydroxide [Milk of 2,400 mg PO DAILY PRN #1000 ml 11/16/22 11/19/22 Rx Magnesia] Morphine Sulfate Ir [MSIR] 15 mg PO Q4HR PRN #30 tab 11/16/22 11/19/22 Rx Sennosides-Docusate Sodium 1 each PO BID #60 tab 11/16/22 11/19/22 Rx [Senokot-S] Allergies Allergy/AdvReac Type Severity Reaction Status Date / Time Penicillins Allergy Unknown Verified 11/19/22 17:14 Physical Exam Vitals: Vital Signs Temp Pulse Pulse Resp BP BP Pulse Ox 11/20/22 14:41 98.4 F 56 L 13 109/68 96 11/20/22 07:20 99.5 F 61 13 126/71 98 11/20/22 03:10 98.3 F 73 16 138/64 97 11/19/22 21:30 98.2 F 62 17 164/77 100 11/19/22 20:56 60 18 161/89 95 11/19/22 20:03 60 18 158/90 95 Intake and Output 11/20/22 11/20/22 11/20/22 06:59 14:59 22:59 Intake Total 354 Output Total 150 Balance 204 Intake: Oral 354 Output: Urine 150 Other: # Voids 1 - Constitutional General appearance: no acute distress, thin - EENT Eyes: anicteric sclerae, EOMI ENT: hearing grossly normal - Respiratory Respiratory: bilateral: CTA - Cardiovascular Rhythm: regular Heart sounds: normal: S1, S2 Abnormal Heart Sounds: no systolic murmur, no diastolic murmur, no rub, no S3 Gallop, no S4 Gallop, no click, no other - Gastrointestinal General gastrointestinal: no distended, soft, tenderness Localized gastrointestinal: tender: RUQ, epigastric periumbilical - Integumentary Integumentary: no cyanotic, no jaundiced - Neurologic Grossly intact - Musculoskeletal Musculoskeletal: strength equal bilaterally - Psychiatric Psychiatric: A&O x's 3, appropriate affect, intact judgment & insight Results CBC & Chem 7: 11/19/22 16:05 11/19/22 16:05 Labs: Abnormal Lab Results - Last 24 Hours (Table) 11/20/22 11/20/22 Range/Units 06:43 12:53 PT 14.3 H (9.0-12.0) sec INR 1.4 H (<1.2) Urine Protein 1+ H (Negative) Urine Glucose (UA) 1+ H (Negative) Urine Mucus Rare H (None) /hpf CT scan - abdomen: report reviewed CT scan - pelvis: report reviewed US - abdomen: report reviewed Assessment and Plan (1) Abdominal pain Status: Acute Priority: High Code(s): R10.9 - UNSPECIFIED ABDOMINAL PAIN SNOMED Code(s): 25503348 (2) Liver mass Status: Acute Priority: High Code(s): R16.0 - HEPATOMEGALY, NOT ELSEWHERE CLASSIFIED SNOMED Code(s): 061459853 Plan: Abdominal pain -Patient has a pain pump for chronic pain. Information from pain management is that there is morphine and clonidine in the pump. -Patient was recently seen in the clinic and at that time was offered morphine ER for better pain control, but patient declined and stated he wanted to f/u with his pain specialist. Pt was given morphine IR and instructed to discuss further pain management with pain specialist. -Morphine IVP ordered with plans to transition patient to morphine ER, however spoke with IM team and patient is requesting to be discharged today so he is able to get his biopsy tomorrow at [facility]. Will place patient on 15 mg morphine ER twice daily, with 15 mg morphine IR prn for breakthrough pain. Patient instructed to call clinic or pain specialist if pain is not controlled on curr ent regimen. -Medications for prevention of narcotic-induced constipation ordered Liver mass, pancreatic head mass -LFTs slightly elevated. Bilirubin WNL -PET/CT on 10/19/22 revealed 3 observations within the liver with peripheral metabolic activity. The largest is in the right hepatic lobe measuring up to 12.0 cm. No evidence for lymphadenopathy or suspicious areas of FDG activity area. Etiology is uncertain. Left upper lobe 5 mm pulmonary nodule. Area within the pancreatic head does not demonstrate increased FDG activity, likely represents a cyst. -Previous liver biopsy was nondiagnostic -Repeat biopsy scheduled at [facility] on 11/21 -F/u scheduled on 11/[address] Jaime Rosado to discuss results and treatment options attests: I performed H&P and developed impression and plan of care for patient, discussed with dictator. I agree with dictated note, documented as a scribe
== END 2022-11-20 18:00 ==
LOC: EC 15:39 → 6NMEDSUR 18:59
PROVIDERS: ADMIT Student in an Organized Health Care Education/Training Program; ATTEND Student in an Organized Health Care Education/Training Program
DX: G89.3 Neoplasm related pain (acute) (chronic) (principal); C25.9 Malignant neoplasm of pancreas, unspecified; C78.7 Secondary malignant neoplasm of liver and intrahepatic bile duct; R11.2 Nausea with vomiting, unspecified; R63.0 Anorexia; R53.1 Weakness; R53.83 Other fatigue; E11.9 Type 2 diabetes mellitus without complications; Z96.89 Presence of other specified functional implants; I25.10 Atherosclerotic heart disease of native coronary artery without angina pectoris; I25.2 Old myocardial infarction; E78.5 Hyperlipidemia, unspecified; R74.8 Abnormal levels of other serum enzymes; F41.9 Anxiety disorder, unspecified; F31.9 Bipolar disorder, unspecified; Z96.642 Presence of left artificial hip joint; R51.9 Headache, unspecified; R44.1 Visual hallucinations; I10 Essential (primary) hypertension; Z95.0 Presence of cardiac pacemaker; E03.9 Hypothyroidism, unspecified; F10.11 Alcohol abuse, in remission; Z82.5 Family history of asthma and other chronic lower respiratory diseases; Z80.9 Family history of malignant neoplasm, unspecified; Z83.52 Family history of ear disorders; Z79.4 Long term (current) use of insulin; Z79.899 Other long term (current) drug therapy; Z79.84 Long term (current) use of oral hypoglycemic drugs; Z79.890 Hormone replacement therapy; Z88.0 Allergy status to penicillin
CPT/HCPCS: 96376 ×2; 96372; 96375 ×2; 96374; 99285; 36415; 80053; 82150; 83605; 83690; 85025; 85610; 81001; 83036; 70450; G0378 ×2; J1200; J0780; J2405; J1885 ×2; C9113; J1644